=== PATIENT | male | born 1930 | race Hispanic/Latino ===

== ENCOUNTER 2018-10-14 15:42 | Inpatient (IN) | payer MEDICARE ==
[2018-10-14] MEDS ORDERED: SUBLIMAZE IV PRN (18:43)
[2018-10-14] MEDS ORDERED: ZOFRAN IV PRN ×2 (18:43→21:27)
--- NOTE | 2018-10-14 18:44 | Anesthesia Day of Surgery ---
Anesthesia Day of Surgery - Day of Surgery Patient Examined: Yes Patient H&P Reviewed: Yes Patient is NPO: Yes (NPO 10AM)
--- NOTE | 2018-10-14 18:48 | Anesthesia Consultation ---
Anesthesia Consult and Med Hx Date of service: 10/14/18 - Airway Anesthetic Teeth Evaluation: Dentures (Implants with metal posts) ROM Head & Neck: Adequate Mental/Hyoid Distance: Adequate Mallampati Class: Class II Intubation Access Assessment: Good - Pre-Operative Health Status ASA Pre-Surgery Classification: ASA3, Emergency Proposed Anesthetic Plan: General, MAC - Cardiovascular System Hx Coronary Artery Disease: Yes (Angioplasty 30years ago. Dismissed from document review specialist's care) - Central Nervous System Hx Neuromuscular Disorder: Yes (Neuropathy of foot. 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
[2018-10-14] MEDS ORDERED: LACTATED RINGERS 1,000 ML IV SCH (19:00)
[2018-10-14] MEDS ORDERED: DIPRIVAN 10 MG/ML IV ONE (20:35)
[2018-10-14] MEDS ORDERED: SUBLIMAZE ONE (20:35)
[2018-10-14] MEDS ORDERED: NACL 0.9% IR ONE (20:53)
[2018-10-14] MEDS ORDERED: D50W (25GM) Syringe IV PRN (21:27)
[2018-10-14] MEDS ORDERED: SODIUM CHLORIDE FLUSH SYRINGE 10 ML IV PRN (21:27)
[2018-10-14] MEDS ORDERED: ZANAFLEX PO PRN (21:45)
--- NOTE | 2018-10-14 22:01 | Operative Report ---
Operative Report Operative Report: Date of Procedure: 10/14/2018 Pre-operative Diagnosis: PVD with Left Lower Extremity Gangrene Post-operative Diagnosis: Same Procedure(s): 1. Debridement of Left Foot Necrotic Skin Muscle and Soft Tissue 2. Open Ray Amputation of Left First Toe Surgeon: Kunal Dow M.D. Swatch Folder: Alaina Anesthesia: MAC EBL: Minimal Counts: Correct Complications: None Condition: Stable Findings: The medial wound of the left foot involving the first metatarsal head. There was necrotic tissue on the plantar surface involving the medial wound. The tissue underlying the lateral wound was all healthy and did not involve any bone. All tissue was debrided to healthy tissue and had excellent bleeding base. Specimen: Skin muscle and soft tissue of the left foot was sent to microbiology for cultures. The first toe was sent to pathology. Indication: The patient is an 88-year-old male with a history of peripheral vascular disease where revascularization of the left foot for wound healing. The patient presented to my office today with a 3 week history of fevers and decreased mental status. He had worsening of the wound as well as a new wound on the lateral foot. Both wounds appeared to be secondary to pressure as his dressings have been held in place with Coban band. Given the mental status changes and the deterioration of his wounds it was felt that he needed urgent incision and drainage of the possible first time limitation. His and son were given the risk, benefits, and alternative procedures and consented to the procedure. Description of Procedure: The patient was brought to the operating room and laid in supine position. After he was adequately sedated his left foot was prepped and draped in normal sterile fashion. A 10 blade was used to sharply excise around the eschar on the medial aspect of his left foot. Upon removing the eschar the medial aspect of the first metatarsal was exposed and had obvious signs of osteomyelitis. There was also necrotic tissue exposed that extended along the plantar surface of the foot beneath the first metatarsal. This was sharply debrided with curved Lange's to healthy bleeding tissue. I then used a periosteal elevator to elevate the periosteum off of the first metatarsal and used an oscillating saw to divide the first metatarsal proximal to the wound. I used a 10 blade to continue the incision around the base of the first toe and then used the curved Mayos to further debride the remaining necrotic tissue. Of note there was excellent bleeding within the tissue bed giving some indication that there was adequate perfusion for healing. I used a rasp to ensure that the bone was smoothed. I then copiously irrigated the wound. Hemostasis within the wound was achieved with a combination of direct pressure and cautery. I then used a 10 blade to excise the eschar over the lateral wound and this was not involving the bone and had a very clean base. Hemostasis on that little was achieved with direct pressure. Once hemostasis was achieved the foot was dressed with Betadine soaked gauze in the medial wound and then dressed with fluffs, a Kerlix roll, and a four-inch Fran bandage. The patient tolerated the procedure well. All sponge, needle, and instrument counts were correct. The patient was taken to the recovery area in stable condition.
[2018-10-14] MEDS ORDERED: VANCOMYCIN PHARMACY TO DOSE IV SCH (23:00)
[2018-10-14] MEDS ORDERED: MAXIPIME/NS 2 GM/100 ML 2 GM/100 ML BAG IV SCH (23:00)
[2018-10-14] MEDS ORDERED: VANCOMYCIN 2,000 MG in NACL 0.9% 500 ML 500 ML IV ONE (23:15)
[2018-10-14] MEDS: NACL 0.9% 1000 ML 1,000 ML IV SCH (23:41)
[2018-10-14] MEDS: PRAVACHOL PO SCH (23:43)
[2018-10-14] MEDS: TYLENOL PO PRN (23:43)
[2018-10-14] MEDS: ZANAFLEX PO PRN (23:44)
[2018-10-14] MEDS: NAMENDA PO SCH (23:44)
[2018-10-14] MEDS: FLOMAX PO SCH (23:58)
[2018-10-14] MEDS: NEURONTIN PO SCH (23:59)
[2018-10-15] MEDS: SODIUM CHLORIDE FLUSH SYRINGE 10 ML IV SCH ×3 (00:30→21:52)
[2018-10-15] MEDS: HumaLOG SUB-Q SCH ×5 (00:30→21:51)
[2018-10-15 01:53] LABS: Calcium 8.5 mg/dL (8.4-10.2)
[2018-10-15 01:58] LABS: Basophils # (Auto) 0.2 K/mm3 (0.0-0.1); Eosinophils % (Auto) 0.4 % (0.0-4.3); Hematocrit 49.5 % (35.5-45.6); Hemoglobin 16.4 gm/dl (11.8-15.2); Lymphocytes # (Auto) 2.2 K/mm3 (1.2-5.4); Lymphocytes % (Auto) 24.3 % (13.4-35.0); Mean Corpuscular HGB Conc 33 % (32-34); Mean Corpuscular Volume 90 fl (84-94); Monocytes # (Auto) 0.5 K/mm3 (0.0-0.8); Platelet Count 167 K/mm3 (140-440); Red Blood Count 5.49 M/mm3 (3.65-5.03); Red Cell Distribution Width 13.4 % (13.2-15.2)
[2018-10-15] MEDS ORDERED: APRESOLINE IV PRN (04:43)
[2018-10-15] MEDS ORDERED: KIONEX PO ONE ×2 (04:44→14:23)
[2018-10-15] MEDS: SYNTHROID PO SCH (05:20)
--- NOTE | 2018-10-15 09:07 | Post Anesthesia Evaluation ---
- Post Anesthesia Evaluation Patient Participated: Yes Airway Patent: Yes Stable Respiratory Function: Yes Nausea/Vomiting: No Temp > 96.8F: Yes Pain Manageable: Yes Adequeate Hydration: Yes Anesthesia Complications: No Block Receding Appropriately: Not Applicable Patient on Ventilator: No
[2018-10-15] MEDS ORDERED: MAXIPIME/NS 2 GM/100 ML 2 GM/100 ML BAG IV SCH (10:00)
[2018-10-15] MEDS ORDERED: FLOMAX PO SCH (10:00)
[2018-10-15] MEDS: LOVENOX SUB-Q SCH (10:20)
[2018-10-15] MEDS: PROTONIX PO SCH (10:20)
[2018-10-15] MEDS: PROzac PO SCH (10:20)
[2018-10-15] MEDS: NAMENDA PO SCH ×2 (10:20→21:51)
[2018-10-15] MEDS: CLARITIN PO SCH (10:20)
[2018-10-15] MEDS: ZESTRIL PO SCH (10:21)
--- NOTE | 2018-10-15 10:26 | Consultation ---
History of Present Illness - Reason for Consult Consult date: 10/15/18 - History of Present Illness 88 yo M PMHx CAD, Dm2, neuropathy, PAD admitted to hospital directly from his surgeon's office. He had initially presented there yesterday with a 3 week history of AMS and fevers which were associated with a worsening of the wound on his foot. It was ascertained that the dressings on his foot were being held in place by a too tight bandage. He was admitted for urgent surgical management of the wounds yesterday. He was taken to the OR where the wounds were found to involve the firtst metatarsal head, and over the lateral aspect of the foot. The 1st ray was amputated and the other wounds were debrided and found to extend down to the muscle and fascia layer but did not involve the bone. Family reports he is much improved today, and is alert and oriented during my interview. Denies any pain. Febrile on admission to 100.7 with a normal white count. He is currently receiving vancomycin and cefepime. Wound cultures and bone specimens were obtained intra-operatively from the surgery and are pending. Imaging personally reviewed: No imaging obtained. Review of Systems: Bold if positive, otherwise negative General: fevers, chills, rigors HEENT: visual disturbance, diplopia, eye pain Respiratory: cough, sputum, hemoptysis, shortness of breath Cardiovascular: chest pain, syncope Gastrointestinal: nausea, vomiting, diarrhea, abdominal pain Genitourinary: dysuria, hematuria, flank pain Musculoskeletal: neck pain, back pain, joint pain, edema Neurologic: headaches, seizures Hematologic: easy bruising or bleeding Endocrine: night sweats, acute weight loss Skin: rash, jaundice, redness Psychiatric: suicidal, homicidal ideation Past History Past Medical History: CAD, diabetes, PVD Past Surgical History: Other (Toe amputation) Social history: denies: smoking, alcohol abuse Family history: CAD, diabetes Medications and Allergies Allergies Allergy/AdvReac Type Severity Reaction Status Date / Time No Known Allergies Allergy Unverified 10/14/18 21:13 Active Meds: Active Medications Acetaminophen (Tylenol) 650 mg PO Q4H PRN PRN Reason: Pain MILD(1-3)/Fever >100.5/[facility] Last Admin: 10/14/18 23:43 Dose: 650 mg Documented by: Dextrose (D50w (25gm) Syringe) 50 ml IV PRN PRN PRN Reason: Hypoglycemia Enoxaparin Sodium (Lovenox) 30 mg SUB-Q QDAY [facility] Last Admin: 10/15/18 10:20 Dose: 30 mg Documented by: Fentanyl (Sublimaze) 50 mcg IV Q5MIN PRN PRN Reason: Pain , Severe (7-10) Fluoxetine HCl (Prozac) 40 mg PO QDAY [facility] Last Admin: 10/15/18 10:20 Dose: 40 mg Documented by: Gabapentin (Neurontin) 600 mg PO QHS [facility] Last Admin: 10/14/18 23:59 Dose: 600 mg Documented by: Hydralazine HCl (Apresoline) 10 mg IV Q4H PRN PRN Reason: Blood Pressure Lactated Ringer's (Lactated Ringers) 1,000 mls @ 100 mls/hr IV DIRECT [facility] Sodium Chloride (Nacl 0.9% 1000 Ml) 1,000 mls @ 75 mls/hr IV DIRECT [facility] Last Admin: 10/14/18 23:41 Dose: 75 mls/hr Documented by: Cefepime HCl (Maxipime/Ns 2 Gm/100 Ml) 2 gm in 100 mls @ 200 mls/hr IV Q24HR [facility]; Protocol Last Admin: 10/15/18 10:20 Dose: 200 mls/hr Documented by: Vancomycin HCl 1,500 mg/ (Sodium Chloride) 530 mls @ 333.333 mls/hr IV Q24H [facility] Insulin Human Lispro (Humalog) 0 unit SUB-Q ACHS [facility]; Protocol Last Admin: 10/15/18 08:00 Dose: Not Given Documented by: Levothyroxine Sodium (Synthroid) 100 mcg PO DAILY@0600 [facility] Last Admin: 10/15/18 05:20 Dose: 100 mcg Documented by: Lisinopril (Zestril) 5 mg PO QDAY [facility] Last Admin: 10/15/18 10:21 Dose: Not Given Documented by: Loratadine (Claritin) 10 mg PO QDAY [facility] Last Admin: 10/15/18 10:20 Dose: 10 mg Documented by: Memantine (Namenda) 10 mg PO Q12HR [facility] Last Admin: 10/15/18 10:20 Dose: 10 mg Documented by: Ondansetron HCl (Zofran) 4 mg IV Q8H PRN PRN Reason: Nausea And Vomiting Oxycodone/Acetaminophen (Percocet 5/325) 2 tab PO Q6H PRN PRN Reason: Pain, Moderate (4-6) Pantoprazole Sodium (Protonix) 40 mg PO QDAY [facility] Last Admin: 10/15/18 10:20 Dose: 40 mg Documented by: Pravastatin Sodium (Pravachol) 80 mg PO QHS [facility] Last Admin: 10/14/18 23:43 Dose: 80 mg Documented by: Sodium Chloride (Sodium Chloride Flush Syringe 10 Ml) 10 ml IV BID [facility] Last Admin: 10/15/18 10:20 Dose: 10 ml Documented by: Sodium Chloride (Sodium Chloride Flush Syringe 10 Ml) 10 ml IV PRN PRN PRN Reason: LINE FLUSH Tamsulosin HCl (Flomax) 0.4 mg PO QHS [facility] Last Admin: 10/14/18 23:58 Dose: 0.4 mg Documented by: Tizanidine HCl (Zanaflex) 4 mg PO Q6H PRN PRN Reason: Muscle Spasm Last Admin: 10/14/18 23:44 Dose: 4 mg Documented by: Physical Examination - Physical Exam Narrative exam: Physical Exam: Constitutional: Alert, cooperative. No acute distress Head, Ears, Nose: Normocephalic, atraumatic. External ears, nose normal Eyes: Conjunctivae/corneas clear. No icterus. No ptosis. Neck: Supple, no meningeal signs Oral: dentition fair, no thrush Cardiovascular: S1, S2 normal. Respiratory: Good air entry, clear to auscultation bilaterally GI: Soft, non-tender; bowel sounds normal. No peritoneal signs. Musculoskeletal: No pedal edema, no cyanosis. L foot s/p 1st ray amputation. Foot dressed. Skin: No rash or abscess Hem/Lymphatic: No palpable cervical or supraclavicular nodes. No lymphangitis Psych: Mood ok. Affect normal Neurological: Awake, alert, oriented. No gross abnormality - Constitutional Vitals: Vital Signs Temp Pulse Resp BP Pulse Ox 97.3 F L 66 18 125/49 100 10/15/18 07:40 10/15/18 10:21 10/15/18 07:40 10/15/18 10:21 10/15/18 07:40 Temperature -Last 24 Hours Temperature 97.3 F Temperature 98.5 F Temperature 98.5 F Temperature 98.4 F Temperature 100.7 F Temperature 98.9 F Temperature 100.3 F Results - Labs CBC & Chem 7: 10/14/18 23:09 10/14/18 23:09 Labs: Abnormal lab results 10/14/18 10/14/18 10/14/18 Range/Units 16:35 21:53 23:09 RBC 5.49 H (3.65-5.03) M/mm3 Hgb 16.4 H (11.8-15.2) gm/dl Hct 49.5 H (35.5-45.6) % Baso # 0.2 H (0.0-0.1) K/mm3 Sodium (137-145) mmol/L Potassium (3.6-5.0) mmol/L Carbon Dioxide (22-30) mmol/L Creatinine (0.8-1.5) mg/dL POC Glucose 153 H 110 H (70-105) 10/14/18 Range/Units 23:09 RBC (3.65-5.03) M/mm3 Hgb (11.8-15.2) gm/dl Hct (35.5-45.6) % Baso # (0.0-0.1) K/mm3 Sodium 135 L (137-145) mmol/L Potassium 5.4 H (3.6-5.0) mmol/L Carbon Dioxide 21 L (22-30) mmol/L Creatinine 1.8 H (0.8-1.5) mg/dL POC Glucose (70-105) Assessment and Plan Cultures: 10/14 surgical Cx - pending A/P: 88 yo M PMHx CAD, Dm2, neuropathy, PAD admitted with osteomyelitis and infected diabetic foot wound. 1. 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 May not require assisted antibiotics if clean margins obtain on pathology. Pending path and cultures. Agree with continuing current antibiotics pendign these results. 2. Infected L diabetic foot wound - Antibiotics as above, pending cultures. Total duration will depend on if only soft tissue infection remains versus ongoing osteomyelitis. 3. CAD 4. DM2 5. PAD - s/p recent stent placement. Recs: - continue vancomycin dosed per pharmacy. Appreciate their assistance. Goal trough 15-20 - increased cefepime to 2g q12h. - follow up surgical cultures - duration pending culture and pathology results. Thank you for the consult, we will continue to follow. Kaz Manuel MD [facility] M: [phone] O: [phone] F: [phone]
--- NOTE | 2018-10-15 14:01 | Consultation ---
History of Present Illness - Reason for Consult Consult date: 10/15/18 Management of T2DM, and Osteomyelitis in a pt s/o p left toe amputatuion Requesting physician: ROSARIO DOHERTY - History of Present Illness 88 yo/M with a MHx CAD, DM2, neuropathy, PAD admitted to hospital directly from his surgeon's office for surgical evaluation and treatment of the left diabetic foot. Pt had shown signs of infected wound of the left foot and toxemia. He had initially presented there yesterday with a 3 week history of AMS and fevers which were associated with a worsening of the wound on his foot. He was taken to the OR 10/14/17 where the wounds were found to involve the first metatarsal head, and over the lateral aspect of the foot. Hospital medicine as consulted to assist with the management of his T2DM Past History Past Medical History: CAD, diabetes, PVD Past Surgical History: Other (Toe amputation) Social history: denies: smoking, alcohol abuse Family history: CAD, diabetes Medications and Allergies Allergies Allergy/AdvReac Type Severity Reaction Status Date / Time No Known Allergies Allergy Unverified 10/14/18 21:13 Active Meds: Active Medications Acetaminophen (Tylenol) 650 mg PO Q4H PRN PRN Reason: Pain MILD(1-3)/Fever >100.5/[facility] Last Admin: 10/14/18 23:43 Dose: 650 mg Documented by: Dextrose (D50w (25gm) Syringe) 50 ml IV PRN PRN PRN Reason: Hypoglycemia Enoxaparin Sodium (Lovenox) 30 mg SUB-Q QDAY [facility] Last Admin: 10/15/18 10:20 Dose: 30 mg Documented by: Fentanyl (Sublimaze) 50 mcg IV Q5MIN PRN PRN Reason: Pain , Severe (7-10) Fluoxetine HCl (Prozac) 40 mg PO QDAY [facility] Last Admin: 10/15/18 10:20 Dose: 40 mg Documented by: Gabapentin (Neurontin) 600 mg PO QHS [facility] Last Admin: 10/14/18 23:59 Dose: 600 mg Documented by: Hydralazine HCl (Apresoline) 10 mg IV Q4H PRN PRN Reason: Blood Pressure Lactated Ringer's (Lactated Ringers) 1,000 mls @ 100 mls/hr IV DIRECT [facility] Sodium Chloride (Nacl 0.9% 1000 Ml) 1,000 mls @ 75 mls/hr IV DIRECT [facility] Last Admin: 10/14/18 23:41 Dose: 75 mls/hr Documented by: Vancomycin HCl 1,500 mg/ (Sodium Chloride) 530 mls @ 333.333 mls/hr IV Q24H [facility] Cefepime HCl (Maxipime/Ns 2 Gm/100 Ml) 2 gm in 100 mls @ 200 mls/hr IV Q12HR [facility]; Protocol Insulin Human Lispro (Humalog) 0 unit SUB-Q ACHS [facility]; Protocol Last Admin: 10/15/18 12:24 Dose: Not Given Documented by: Levothyroxine Sodium (Synthroid) 100 mcg PO DAILY@0600 [facility] Last Admin: 10/15/18 05:20 Dose: 100 mcg Documented by: Lisinopril (Zestril) 5 mg PO QDAY [facility] Last Admin: 10/15/18 10:21 Dose: Not Given Documented by: Loratadine (Claritin) 10 mg PO QDAY [facility] Last Admin: 10/15/18 10:20 Dose: 10 mg Documented by: Memantine (Namenda) 10 mg PO Q12HR [facility] Last Admin: 10/15/18 10:20 Dose: 10 mg Documented by: Ondansetron HCl (Zofran) 4 mg IV Q8H PRN PRN Reason: Nausea And Vomiting Oxycodone/Acetaminophen (Percocet 5/325) 2 tab PO Q6H PRN PRN Reason: Pain, Moderate (4-6) Pantoprazole Sodium (Protonix) 40 mg PO QDAY [facility] Last Admin: 10/15/18 10:20 Dose: 40 mg Documented by: Pravastatin Sodium (Pravachol) 80 mg PO QHS [facility] Last Admin: 10/14/18 23:43 Dose: 80 mg Documented by: Sodium Chloride (Sodium Chloride Flush Syringe 10 Ml) 10 ml IV BID [facility] Last Admin: 10/15/18 10:20 Dose: 10 ml Documented by: Sodium Chloride (Sodium Chloride Flush Syringe 10 Ml) 10 ml IV PRN PRN PRN Reason: LINE FLUSH Tamsulosin HCl (Flomax) 0.4 mg PO QHS [facility] Last Admin: 10/14/18 23:58 Dose: 0.4 mg Documented by: Tizanidine HCl (Zanaflex) 4 mg PO Q6H PRN PRN Reason: Muscle Spasm Last Admin: 10/14/18 23:44 Dose: 4 mg Documented by: Exam - Constitutional Vitals: Temp Pulse Resp BP Pulse Ox 97.3 F L 66 18 125/49 100 10/15/18 07:40 10/15/18 10:21 10/15/18 10:00 10/15/18 10:21 10/15/18 10:00 Results - Labs CBC & Chem 7: 10/14/18 23:09 10/14/18 23:09 Labs: Abnormal lab results 10/14/18 10/14/18 10/14/18 Range/Units 16:35 21:53 23:09 RBC 5.49 H (3.65-5.03) M/mm3 Hgb 16.4 H (11.8-15.2) gm/dl Hct 49.5 H (35.5-45.6) % Baso # 0.2 H (0.0-0.1) K/mm3 Sodium (137-145) mmol/L Potassium (3.6-5.0) mmol/L Carbon Dioxide (22-30) mmol/L Creatinine (0.8-1.5) mg/dL POC Glucose 153 H 110 H (70-105) 10/14/18 10/15/18 Range/Units 23:09 12:12 RBC (3.65-5.03) M/mm3 Hgb (11.8-15.2) gm/dl Hct (35.5-45.6) % Baso # (0.0-0.1) K/mm3 Sodium 135 L (137-145) mmol/L Potassium 5.4 H (3.6-5.0) mmol/L Carbon Dioxide 21 L (22-30) mmol/L Creatinine 1.8 H (0.8-1.5) mg/dL POC Glucose 114 H (70-105) Assessment and Plan 88 yo M PMHx CAD, Dm2, neuropathy, PAD admitted to hospital directly from his surgeon's office. He had initially presented there yesterday with a 3 week history of AMS and fevers which were associated with a worsening of the wound on his foot. It was ascertained that the dressings on his foot were being held in place by a too tight bandage. He was admitted for urgent surgical management of the wounds yesterday. He was taken to the OR where the wounds were found to involve the firtst metatarsal head, and over the lateral aspect of the foot. The 1st ray was amputated and the other wounds were debrided and found to extend down to the muscle and fascia layer but did not involve the bone. Family reports he is much improved today, and is alert and oriented during my interview. Denies any pain. - Diabetic left ulcer left foot Local wound care . Foot elevation -DM SSI consistent CHO Deit - Hyperkalemia Repaet. Kayxalate if still elevated - ROSANNE IVF Serail BUN Cr DVT PPX with Lovenox and GI with pepeh
[2018-10-15] MEDS ORDERED: D50W (25GM) Syringe IV PRN (14:22)
[2018-10-15] MEDS: PERCOCET 5/325 PO PRN ×2 (14:30→21:49)
--- NOTE | 2018-10-15 17:25 | Progress Note ---
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 Patient's mental status improved and febrile nature improved after removal of infected toe. Wound care to see patient tomorrow for possible wound VAC placement. ID for antibiotics. Appreciate assistance. Medicine for diabetic control. Appreciate assistance. Subjective Date of service: 10/15/18 Interval history: Doing well. Since surgery, afebrile. No complaints. The foot is warm and well-perfused. Bandages not taken down today the other toes are visible. Objective - Constitutional Vitals: Vital Signs - 12hr 10/15/18 10/15/18 10/15/18 07:40 10:00 10:21 Temperature 97.3 F L Pulse Rate 66 54 L 66 Pulse Rate [ 66 From Monitor] Respiratory 18 18 Rate Blood Pressure 125/49 125/49 O2 Sat by Pulse 100 100 Oximetry 10/15/18 16:21 Temperature 98.3 F Pulse Rate 67 Pulse Rate [ From Monitor] Respiratory 18 Rate Blood Pressure 154/42 O2 Sat by Pulse 100 Oximetry General appearance: Present: no acute distress - EENT Eyes: EOM intact ENT: hearing intact Extremities: abnormal (see subjective) - Psychiatric Psychiatric: appropriate mood/affect, cooperative - Labs CBC & Chem 7: 10/14/18 23:09 10/14/18 23:09 Labs: Abnormal lab results 10/14/18 10/14/18 10/14/18 Range/Units 21:53 23:09 23:09 RBC 5.49 H (3.65-5.03) M/mm3 Hgb 16.4 H (11.8-15.2) gm/dl Hct 49.5 H (35.5-45.6) % Baso # 0.2 H (0.0-0.1) K/mm3 Sodium 135 L (137-145) mmol/L Potassium 5.4 H (3.6-5.0) mmol/L Carbon Dioxide 21 L (22-30) mmol/L Creatinine 1.8 H (0.8-1.5) mg/dL POC Glucose 110 H (70-105) Hemoglobin A1c (4-6) % 10/15/18 10/15/18 10/15/18 Range/Units 12:12 15:47 16:29 RBC (3.65-5.03) M/mm3 Hgb (11.8-15.2) gm/dl Hct (35.5-45.6) % Baso # (0.0-0.1) K/mm3 Sodium (137-145) mmol/L Potassium (3.6-5.0) mmol/L Carbon Dioxide (22-30) mmol/L Creatinine (0.8-1.5) mg/dL POC Glucose 114 H 210 H (70-105) Hemoglobin A1c 6.7 H (4-6) % Medications & Allergies - Medications Allergies/Adverse Reactions: Allergies No Known Allergies Allergy (Unverified 10/14/18 21:13) Active Medications: Generic Name Dose Route Start Last Admin Trade Name Freq PRN Reason Stop Dose Admin Acetaminophen 650 mg 10/14/18 21:27 10/14/18 23:43 Tylenol PO 650 mg Q4H PRN Administration Pain MILD(1-3)/Fever >100.5/[facility]MAR[facility] Dextrose 50 ml 10/14/18 21:27 D50w (25gm) Syringe IV PRN PRN Hypoglycemia Dextrose 50 ml 10/15/18 14:22 D50w (25gm) Syringe IV PRN PRN Hypoglycemia Enoxaparin Sodium 30 mg 10/15/18 10:00 10/15/18 10:20 Lovenox SUB-Q 30 mg QDAY [facility] Administration Fentanyl 50 mcg 10/14/18 18:43 Sublimaze IV Q5MIN PRN Pain , Severe (7-10) Fluoxetine HCl 40 mg 10/15/18 10:00 10/15/18 10:20 Prozac PO 40 mg QDAY [facility] Administration Gabapentin 600 mg 10/14/18 22:00 10/14/18 23:59 Neurontin PO 600 mg QHS [facility] Administration Hydralazine HCl 10 mg 10/15/18 04:43 Apresoline IV Q4H PRN Blood Pressure Lactated Ringer's 1,000 mls @ 100 mls/hr 10/14/18 19:00 Lactated Ringers IV DIRECT [facility] Sodium Chloride 1,000 mls @ 75 mls/hr 10/14/18 23:00 10/14/18 23:41 Nacl 0.9% 1000 Ml IV 75 mls/hr DIRECT [facility] Administration Vancomycin HCl 1,500 mg/ 530 mls @ 333.333 mls/hr 10/15/18 22:00 Sodium Chloride IV Q24H [facility] Cefepime HCl 2 gm in 100 mls @ 200 mls/hr 10/15/18 22:00 Maxipime/Ns 2 Gm/100 Ml IV Q12HR [facility] Protocol Sodium Chloride 1,000 mls @ 75 mls/hr 10/15/18 15:00 Nacl 0.9% 1000 Ml IV DIRECT [facility] Insulin Human Lispro 0 unit 10/14/18 22:00 10/15/18 12:24 Humalog SUB-Q Not Given ACHS [facility] Protocol Levothyroxine Sodium 100 mcg 10/15/18 06:00 10/15/18 05:20 Synthroid PO 100 mcg DAILY@0600 [facility] Administration Lisinopril 5 mg 10/15/18 10:00 10/15/18 10:21 Zestril PO Not Given QDAY [facility] Loratadine 10 mg 10/15/18 10:00 10/15/18 10:20 Claritin PO 10 mg QDAY [facility] Administration Memantine 10 mg 10/14/18 22:00 10/15/18 10:20 Namenda PO 10 mg Q12HR [facility] Administration Ondansetron HCl 4 mg 10/14/18 21:27 Zofran IV Q8H PRN Nausea And Vomiting Oxycodone/Acetaminophen 2 tab 10/14/18 21:48 Percocet 5/325 PO Q6H PRN Pain, Moderate (4-6) Pantoprazole Sodium 40 mg 10/15/18 10:00 10/15/18 10:20 Protonix PO 40 mg QDAY [facility] Administration Pravastatin Sodium 80 mg 10/14/18 22:00 10/14/18 23:43 Pravachol PO 80 mg QHS [facility] Administration Sodium Chloride 10 ml 10/14/18 22:00 10/15/18 10:20 Sodium Chloride Flush Syringe 10 Ml IV 10 ml BID [facility] Administration Sodium Chloride 10 ml 10/14/18 21:27 Sodium Chloride Flush Syringe 10 Ml IV PRN PRN LINE FLUSH Tamsulosin HCl 0.4 mg 10/14/18 22:00 10/14/18 23:58 Flomax PO 0.4 mg QHS [facility] Administration Tizanidine HCl 4 mg 10/14/18 22:46 10/14/18 23:44 Zanaflex PO 4 mg Q6H PRN Administration Muscle Spasm
[2018-10-15] MEDS ORDERED: NEURONTIN PO SCH (18:00)
[2018-10-15] MEDS: PRAVACHOL PO SCH (21:50)
[2018-10-15] MEDS: FLOMAX PO SCH (21:51)
[2018-10-15] MEDS: VANCOMYCIN 1,500 MG in NACL 0.9% 500 ML 500 ML IV SCH (21:51)
[2018-10-15] MEDS: NEURONTIN PO SCH (21:51)
[2018-10-15] MEDS: MAXIPIME/NS 2 GM/100 ML 2 GM/100 ML BAG IV SCH (21:52)
[2018-10-16 04:47] LABS: Basophils % (Auto) 0.5 % (0.0-1.8); Eosinophils # (Auto) 0.3 K/mm3 (0.0-0.4); Eosinophils % (Auto) 3.5 % (0.0-4.3); Hematocrit 29.7 % (35.5-45.6); Lymphocytes # (Auto) 1.8 K/mm3 (1.2-5.4); Lymphocytes % (Auto) 19.6 % (13.4-35.0); Mean Corpuscular HGB Conc 34 % (32-34); Mean Corpuscular Volume 90 fl (84-94); Monocytes # (Auto) 0.8 K/mm3 (0.0-0.8); Monocytes % (Auto) 8.7 % (0.0-7.3); Platelet Count 238 K/mm3 (140-440); Red Blood Count 3.29 M/mm3 (3.65-5.03); Red Cell Distribution Width 13.1 % (13.2-15.2)
[2018-10-16 05:11] LABS: Calcium 8.1 mg/dL (8.4-10.2)
[2018-10-16] MEDS: SYNTHROID PO SCH (06:23)
[2018-10-16] MEDS: NACL 0.9% 1000 ML 1,000 ML IV SCH ×2 (06:24→23:45)
[2018-10-16] MEDS: HumaLOG SUB-Q SCH ×4 (07:30→23:47)
--- NOTE | 2018-10-16 09:19 | Progress Note ---
Assessment and Plan Cultures: 10/14 surgical Cx - pending A/P: 88 yo M PMHx CAD, Dm2, neuropathy, PAD admitted with osteomyelitis and infected diabetic foot wound. 1. 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 May not require intermediate antibiotics if clean margins obtain on pathology. Pending path and cultures. Agree with continuing current antibiotics pending these results. 2. Infected L diabetic foot wound - Antibiotics as above, pending cultures. Tot al duration will depend on if only soft tissue infection remains versus ongoing osteomyelitis. 3. CAD 4. DM2 5. PAD - s/p recent stent placement. Recs: - continue vancomycin dosed per pharmacy. Appreciate their assistance. Goal trough 15-20 - continue cefepime to 2g q12h. - follow up surgical cultures and pathology - duration pending culture and pathology results. Dr. Briggs is manager of employee relations this weekend, . Please call for questions. [facility] M: [id number] O:[phone] Subjective Date of service: 10/16/18 Interval history: Patient seen and examined. Generalized weakness. No SOB or fevers. at bedside. Objective - Exam Narrative Exam: Constitutional: Awake. Alert. Generalized weakness Head, Ears, Nose: Normocephalic, atraumatic. External ears, nose normal Eyes: Conjunctivae/corneas clear. No icterus. No ptosis. Neck: Supple, no meningeal signs Oral: dentition fair, no thrush Cardiovascular: S1, S2 normal. Respiratory: Good air entry, clear to auscultation bilaterally GI: Soft, non-tender; bowel sounds normal. No peritoneal signs. Musculoskeletal: No pedal edema, no cyanosis. L foot s/p 1st ray amputation. Foot dressed. Skin: No rash or abscess Hem/Lymphatic: No palpable cervical or supraclavicular nodes. No lymphangitis Psych: Mood ok. Affect normal Neurological: Awake, alert, oriented. No gross abnormality - Constitutional Vitals: Vital Signs Temp Pulse Resp BP Pulse Ox 99.2 F 63 18 130/31 97 10/16/18 08:24 10/16/18 08:24 10/16/18 08:24 10/16/18 08:24 10/16/18 08:24 Temperature -Last 24 Hours Temperature 99.2 F Temperature 98.8 F Temperature 99.0 F Temperature 99.2 F Temperature 98.3 F - Labs CBC & Chem 7: 10/16/18 04:11 10/16/18 04:11 Labs: Abnormal lab results 10/15/18 10/15/18 10/15/18 Range/Units 12:12 15:47 16:29 RBC (3.65-5.03) M/mm3 Hgb (11.8-15.2) gm/dl Hct (35.5-45.6) % RDW (13.2-15.2) % [place] % (Auto) (0.0-7.3) % Sodium (137-145) mmol/L Glucose (75-100) mg/dL POC Glucose 114 H 210 H (70-105) Hemoglobin A1c 6.7 H (4-6) % Calcium (8.4-10.2) mg/dL 10/15/18 10/16/18 10/16/18 Range/Units 21:16 04:11 04:11 RBC 3.29 L (3.65-5.03) M/mm3 Hgb 10.0 L D (11.8-15.2) gm/dl Hct 29.7 L D (35.5-45.6) % RDW 13.1 L (13.2-15.2) % [place] % (Auto) 8.7 H (0.0-7.3) % Sodium 136 L (137-145) mmol/L Glucose 103 H (75-100) mg/dL POC Glucose 113 H (70-105) Hemoglobin A1c (4-6) % Calcium 8.1 L (8.4-10.2) mg/dL
--- NOTE | 2018-10-16 09:51 | Progress Note ---
Assessment and Plan 88 yo M PMHx CAD, Dm2, neuropathy, PAD admitted to hospital directly from his surgeon's office. He had initially presented there yesterday with a 3 week history of AMS and fevers which were associated with a worsening of the wound on his foot. It was ascertained that the dressings on his foot were being held in place by a too tight bandage. He was admitted for urgent surgical management of the wounds yesterday. He was taken to the OR where the wounds were found to involve the firtst metatarsal head, and over the lateral aspect of the foot. The 1st ray was amputated and the other wounds were debrided and found to extend down to the muscle and fascia layer but did not involve the bone. Family reports he is much improved today, and is alert and oriented during my interview. Denies any pain. - Diabetic left ulcer left foot Local wound care . Foot elevation -DM SSI consistent CHO Deit - Hyperkalemia Repaet. Kayxalate if still elevated - ROSANNE IVF Serail BUN Cr DVT PPX with Lovenox and GI with pepcid - Time spent: 25 minutes Subjective Date of service: 10/16/18 Principal diagnosis: diabetic nephropathy, status post debridements, T2DM, CAD, PAD. Interval history: Labile in bed in no acute distress. No fever. Pain on the left leg is better. Objective - Exam Narrative Exam: Constitutional: Well-nourished well-developed. When necessary. In no distress Head: Normocephalic atraumatic Eyes: Pupils are equal round and reactive to light Nose: No enlarged turbinates, no septal deviation. Mouth: Moist mucous membranes. Neck: Supple no thyromegaly. No bruit. No JVD Heart: Regular rate and rhythm, S1-S2 normal. No rubs murmurs or gallop Lungs: Clear to auscultation bilaterally. no rales or rhonchi Abdomen: Soft, nontender. Bowel sound are present. Extremities: No edema, no cyanosis, no clubbing. Neuro: Alert oriented Oriented x3. No focal sensory or motor deficit. Skin: No rashes or hyperpigmented spots Musculoskeletal system: Left DIABETIC ulcer status post debridement Hematological: No petechia or subcutanous hemorrhages. Immunological: No multiple septic spots on the skin Lymphatic: No generalized lymphadenopathy Psychiatry: Euthymic. Calm. - Constitutional Vitals: Vital Signs - 12hr 10/15/18 10/15/18 10/15/18 21:49 22:13 22:20 Temperature Pulse Rate Pulse Rate [ 61 Apical] Respiratory 18 18 Rate Respiratory 18 Rate [Left Foot ] Blood Pressure O2 Sat by Pulse 96 Oximetry 10/15/18 10/15/18 10/16/18 22:49 23:33 03:42 Temperature 99.0 F 98.8 F Pulse Rate 66 56 L Pulse Rate [ Apical] Respiratory 18 18 19 Rate Respiratory Rate [Left Foot ] Blood Pressure 146/43 120/27 O2 Sat by Pulse 93 98 Oximetry 10/16/18 10/16/18 04:26 08:24 Temperature 99.2 F Pulse Rate 63 Pulse Rate [ Apical] Respiratory 18 Rate Respiratory Rate [Left Foot ] Blood Pressure 100/30 130/31 O2 Sat by Pulse 97 Oximetry - Labs CBC & Chem 7: 10/16/18 04:11 10/16/18 04:11 Labs: Abnormal lab results 10/15/18 10/15/18 10/15/18 Range/Units 12:12 15:47 16:29 RBC (3.65-5.03) M/mm3 Hgb (11.8-15.2) gm/dl Hct (35.5-45.6) % RDW (13.2-15.2) % [place] % (Auto) (0.0-7.3) % Sodium (137-145) mmol/L Glucose (75-100) mg/dL POC Glucose 114 H 210 H (70-105) Hemoglobin A1c 6.7 H (4-6) % Calcium (8.4-10.2) mg/dL 10/15/18 10/16/18 10/16/18 Range/Units 21:16 04:11 04:11 RBC 3.29 L (3.65-5.03) M/mm3 Hgb 10.0 L D (11.8-15.2) gm/dl Hct 29.7 L D (35.5-45.6) % RDW 13.1 L (13.2-15.2) % [place] % (Auto) 8.7 H (0.0-7.3) % Sodium 136 L (137-145) mmol/L Glucose 103 H (75-100) mg/dL POC Glucose 113 H (70-105) Hemoglobin A1c (4-6) % Calcium 8.1 L (8.4-10.2) mg/dL
[2018-10-16] MEDS: PROzac PO SCH (10:00)
[2018-10-16] MEDS: SODIUM CHLORIDE FLUSH SYRINGE 10 ML IV SCH ×2 (10:00→21:08)
[2018-10-16] MEDS: ZESTRIL PO SCH (10:00)
[2018-10-16] MEDS: LOVENOX SUB-Q SCH ×2 (10:00→12:53)
[2018-10-16] MEDS: NAMENDA PO SCH ×2 (10:00→21:08)
--- NOTE | 2018-10-16 12:35 | Vascular Lab Report ---
Duplex arterial ultrasound of both lower extremities INDICATION: Peripheral arterial disease FINDINGS: On the right side there is tri or biphasic flow to the level of the mid SFA with only monop hasic flow distally and significantly dampened waveforms with low velocities. The YUN on the right is only 0.21 indicating extreme ischemia. There is either high-grade stenosis or focal occlusion in a p ortion of the distal SFA on the right. On the left side there is tri or biphasic flow again to the le noemy of the mid left SFA with monophasic flow distally. YUN could not be performed due to foot bandage from recent great toe amputation. The velocities and waveforms are not has diminished as on the righ t side however and there appears to be moderate ischemia of the left leg. Signer Name: Mukesh Frausto MD Signed: 10/16/2018 12:30 PM Workstation Name: [id number]
--- NOTE | 2018-10-16 12:40 | Progress Note ---
Assessment and Plan The patient will need to have wound VAC applied prior to discharge. Discussed with family. This will likely take until the first part of next week given the holiday weekend. Appreciate wound care assistance. Subjective Date of service: 10/16/18 Principal diagnosis: diabetic nephropathy, status post debridements, T2DM, CAD, PAD. Interval history: Patient continues to improve following debridement of his left foot. Objective - Constitutional Vitals: Vital Signs - 12hr 10/16/18 10/16/18 10/16/18 03:42 04:26 08:24 Temperature 98.8 F 99.2 F Pulse Rate 56 L 63 Respiratory 19 18 Rate Blood Pressure 120/27 100/30 130/31 O2 Sat by Pulse 98 97 Oximetry General appearance: Present: no acute distress - EENT Eyes: EOM intact ENT: hearing intact - Neck Neck: supple - Respiratory Respiratory effort: normal Extremities: abnormal (wounds along the medial and lateral aspect of his left foot) - Gastrointestinal General gastrointestinal: Present: deferred Rectal Exam: deferred - Genitourinary Male genitourinary: deferred - Psychiatric Psychiatric: appropriate mood/affect, cooperative - Labs CBC & Chem 7: 10/16/18 04:11 10/16/18 04:11 Labs: Abnormal lab results 10/15/18 10/15/18 10/15/18 Range/Units 15:47 16:29 21:16 RBC (3.65-5.03) M/mm3 Hgb (11.8-15.2) gm/dl Hct (35.5-45.6) % RDW (13.2-15.2) % [place] % (Auto) (0.0-7.3) % Sodium (137-145) mmol/L Glucose (75-100) mg/dL POC Glucose 210 H 113 H (70-105) Hemoglobin A1c 6.7 H (4-6) % Calcium (8.4-10.2) mg/dL 10/16/18 10/16/18 Range/Units 04:11 04:11 RBC 3.29 L (3.65-5.03) M/mm3 Hgb 10.0 L D (11.8-15.2) gm/dl Hct 29.7 L D (35.5-45.6) % RDW 13.1 L (13.2-15.2) % [place] % (Auto) 8.7 H (0.0-7.3) % Sodium 136 L (137-145) mmol/L Glucose 103 H (75-100) mg/dL POC Glucose (70-105) Hemoglobin A1c (4-6) % Calcium 8.1 L (8.4-10.2) mg/dL Medications & Allergies - Medications Allergies/Adverse Reactions: Allergies No Known Allergies Allergy (Unverified 10/14/18 21:13) Active Medications: Generic Name Dose Route Start Last Admin Trade Name Freq PRN Reason Stop Dose Admin Acetaminophen 650 mg 10/14/18 21:27 10/14/18 23:43 Tylenol PO 650 mg Q4H PRN Administration Pain MILD(1-3)/Fever >100.5/ALMARAZ Dextrose 50 ml 10/15/18 14:22 D50w (25gm) Syringe IV PRN PRN Hypoglycemia Enoxaparin Sodium 40 mg 10/16/18 10:00 Lovenox SUB-Q QDAY@1000 BALBINA Fentanyl 50 mcg 10/14/18 18:43 Sublimaze IV Q5MIN PRN Pain , Severe (7-10) Fluoxetine HCl 40 mg 10/15/18 10:00 10/15/18 10:20 Prozac PO 40 mg QDAY [facility] Administration Gabapentin 600 mg 10/14/18 22:00 10/15/18 21:51 Neurontin PO 600 mg QHS BALBINA Administration Hydralazine HCl 10 mg 10/15/18 04:43 Apresoline IV Q4H PRN Blood Pressure Vancomycin HCl 1,500 mg/ 530 mls @ 333.333 mls/hr 10/15/18 22:00 10/15/18 21:51 Sodium Chloride IV 333.333 mls/hr Q24H BALBINA Administration Cefepime HCl 2 gm in 100 mls @ 200 mls/hr 10/15/18 22:00 10/15/18 21:52 Maxipime/Ns 2 Gm/100 Ml IV 200 mls/hr Q12HR BALBINA Administration Protocol Sodium Chloride 1,000 mls @ 75 mls/hr 10/15/18 15:00 Nacl 0.9% 1000 Ml IV DIRECT BALBINA Insulin Human Lispro 0 unit 10/14/18 22:00 10/15/18 21:51 Humalog SUB-Q Not Given A[facility]S [facility] Protocol Levothyroxine Sodium 100 mcg 10/15/18 06:00 10/16/18 06:23 Synthroid PO 100 mcg DAILY@0600 BALBINA Administration Lisinopril 5 mg 10/15/18 10:00 10/15/18 10:21 Zestril PO Not Given QDAY [facility] Loratadine 10 mg 10/15/18 10:00 10/15/18 10:20 Claritin PO 10 mg QDAY [facility] Administration Memantine 10 mg 10/14/18 22:00 10/15/18 21:51 Namenda PO 10 mg Q12HR [facility] Administration Ondansetron HCl 4 mg 10/14/18 21:27 Zofran IV Q8H PRN Nausea And Vomiting Oxycodone/Acetaminophen 2 tab 10/14/18 21:48 10/15/18 21:49 Percocet 5/325 PO 2 tab Q6H PRN Administration Pain, Moderate (4-6) Pantoprazole Sodium 40 mg 10/15/18 10:00 10/15/18 10:20 Protonix PO 40 mg QDAY [facility] Administration Pravastatin Sodium 80 mg 10/14/18 22:00 10/15/18 21:50 Pravachol PO 80 mg QHS [facility] Administration Sodium Chloride 10 ml 10/14/18 22:00 10/15/18 21:52 Sodium Chloride Flush Syringe 10 Ml IV 10 ml BID [facility] Administration Sodium Chloride 10 ml 10/14/18 21:27 Sodium Chloride Flush Syringe 10 Ml IV PRN PRN LINE FLUSH Tamsulosin HCl 0.4 mg 10/14/18 22:00 10/15/18 21:51 Flomax PO 0.4 mg QHS [facility] Administration Tizanidine HCl 4 mg 10/14/18 22:46 10/14/18 23:44 Zanaflex PO 4 mg Q6H PRN Administration Muscle Spasm
[2018-10-16] MEDS: MAXIPIME/NS 2 GM/100 ML 2 GM/100 ML BAG IV SCH ×2 (12:52→21:08)
[2018-10-16] MEDS: CLARITIN PO SCH (12:53)
[2018-10-16] MEDS: PROTONIX PO SCH (12:53)
[2018-10-16] MEDS: PERCOCET 5/325 PO PRN (18:02)
[2018-10-16] MEDS: PRAVACHOL PO SCH (21:08)
[2018-10-16] MEDS: ZANAFLEX PO PRN (21:08)
[2018-10-16] MEDS: FLOMAX PO SCH (21:09)
[2018-10-16] MEDS: NEURONTIN PO SCH (21:09)
[2018-10-16] MEDS: VANCOMYCIN 1,500 MG in NACL 0.9% 500 ML 500 ML IV SCH (21:19)
[2018-10-16] MEDS: TYLENOL PO PRN (23:45)
[2018-10-17 03:53] LABS: Basophils # (Auto) 0.1 K/mm3 (0.0-0.1); Eosinophils # (Auto) 0.4 K/mm3 (0.0-0.4); Eosinophils % (Auto) 5.2 % (0.0-4.3); Hematocrit 29.1 % (35.5-45.6); Hemoglobin 9.8 gm/dl (11.8-15.2); Lymphocytes # (Auto) 1.8 K/mm3 (1.2-5.4); Mean Corpuscular HGB Conc 34 % (32-34); Mean Corpuscular Volume 90 fl (84-94); Monocytes # (Auto) 0.7 K/mm3 (0.0-0.8); Monocytes % (Auto) 9.3 % (0.0-7.3); Platelet Count 235 K/mm3 (140-440); Red Blood Count 3.23 M/mm3 (3.65-5.03)
[2018-10-17 04:17] LABS: Calcium 8.2 mg/dL (8.4-10.2)
[2018-10-17] MEDS: SYNTHROID PO SCH (07:35)
[2018-10-17] MEDS: HumaLOG SUB-Q SCH ×4 (07:49→22:17)
--- NOTE | 2018-10-17 10:38 | Progress Note ---
Assessment and Plan The patient wounds to the medial and lateral aspect of his left foot status post debridement. The wound on the medial aspect of his left foot at the site of the prior great toe is fairly deep and will require wound VAC for closure. The ryne gomez lives in [place] and previously was seen at wound care there however, they're not comfortable returning back. The patient will need daily dressing changes until a wound VAC and outpatient eye wound care can be arranged. He will need physical therapy evaluation and treatment and to get out of bed with nursing assistance and sit in the chair. Subjective Date of service: 10/17/18 Principal diagnosis: diabetic nephropathy, status post debridements, T2DM, CAD, PAD. Interval history: Patient resting comfortably in bed. Bandages changed. No significant drainage. Patient underwent arterial ultrasound which demonstrates atherosclerotic disease and in-line flow to the left foot. The patient's right foot which has no wounds does have decreased arterial flow and will need to be addressed in the future. Objective - Constitutional Vitals: Vital Signs - 12hr 10/16/18 10/16/18 10/17/18 23:18 23:45 04:10 Temperature 99.4 F 98.0 F Pulse Rate 61 46 L Respiratory 18 20 18 Rate Blood Pressure 153/39 126/34 O2 Sat by Pulse 98 96 Oximetry General appearance: Present: no acute distress - EENT Eyes: EOM intact ENT: hearing intact - Neck Neck: supple, normal ROM - Respiratory Respiratory effort: normal - Breasts Breasts: deferred Extremities: abnormal - Gastrointestinal General gastrointestinal: Present: deferred Rectal Exam: deferred - Genitourinary Male genitourinary: deferred - Psychiatric Psychiatric: cooperative - Labs CBC & Chem 7: 10/17/18 03:38 10/17/18 03:38 Labs: Abnormal lab results 10/16/18 10/16/18 10/17/18 Range/Units 12:43 23:24 03:38 RBC 3.23 L (3.65-5.03) M/mm3 Hgb 9.8 L (11.8-15.2) gm/dl Hct 29.1 L (35.5-45.6) % RDW 13.0 L (13.2-15.2) % [place] % (Auto) 9.3 H (0.0-7.3) % [place] % (Auto) 5.2 H (0.0-4.3) % Glucose (75-100) mg/dL POC Glucose 155 H 199 H (70-105) Calcium (8.4-10.2) mg/dL 10/17/18 Range/Units 03:38 RBC (3.65-5.03) M/mm3 Hgb (11.8-15.2) gm/dl Hct (35.5-45.6) % RDW (13.2-15.2) % [place] % (Auto) (0.0-7.3) % Eos % (Auto) (0.0-4.3) % Glucose 119 H (75-100) mg/dL POC Glucose (70-105) Calcium 8.2 L (8.4-10.2) mg/dL Medications & Allergies - Medications Allergies/Adverse Reactions: Allergies No Known Allergies Allergy (Unverified 10/14/18 21:13) Active Medications: Generic Name Dose Route Start Last Admin Trade Name Freq PRN Reason Stop Dose Admin Acetaminophen 650 mg 10/14/18 21:27 10/16/18 23:45 Tylenol PO 650 mg Q4H PRN Administration Pain MILD(1-3)/Fever >100.5/ALMARAZ Dextrose 50 ml 10/15/18 14:22 D50w (25gm) Syringe IV PRN PRN Hypoglycemia Enoxaparin Sodium 40 mg 10/16/18 10:00 10/16/18 10:00 Lovenox SUB-Q Not Given QDAY@1000 [facility] Fentanyl 50 mcg 10/14/18 18:43 Sublimaze IV Q5MIN PRN Pain , Severe (7-10) Fluoxetine HCl 40 mg 10/15/18 10:00 10/16/18 10:00 Prozac PO Not Given QDAY [facility] Gabapentin 600 mg 10/14/18 22:00 10/16/18 21:09 Neurontin PO 600 mg QHS [facility] Administration Hydralazine HCl 10 mg 10/15/18 04:43 Apresoline IV Q4H PRN Blood Pressure Vancomycin HCl 1,500 mg/ 530 mls @ 333.333 mls/hr 10/15/18 22:00 10/16/18 21:19 Sodium Chloride IV 333.333 mls/hr Q24H [facility] Administration Cefepime HCl 2 gm in 100 mls @ 200 mls/hr 10/15/18 22:00 10/16/18 21:08 Maxipime/Ns 2 Gm/100 Ml IV 200 mls/hr Q12HR [facility] Administration Protocol Sodium Chloride 1,000 mls @ 75 mls/hr 10/15/18 15:00 10/16/18 23:45 Nacl 0.9% 1000 Ml IV 75 mls/hr DIRECT [facility] Administration Insulin Human Lispro 0 unit 10/14/18 22:00 10/17/18 07:49 Humalog SUB-Q Not Given ACHS [facility] Protocol Levothyroxine Sodium 100 mcg 10/15/18 06:00 10/17/18 07:35 Synthroid PO Not Given DAILY@0600 [facility] Lisinopril 5 mg 10/15/18 10:00 10/16/18 10:00 Zestril PO Not Given QDAY [facility] Loratadine 10 mg 10/15/18 10:00 10/16/18 12:53 Claritin PO 10 mg QDAY [facility] Administration Memantine 10 mg 10/14/18 22:00 10/16/18 21:08 Namenda PO 10 mg Q12HR [facility] Administration Ondansetron HCl 4 mg 10/14/18 21:27 Zofran IV Q8H PRN Nausea And Vomiting Oxycodone/Acetaminophen 2 tab 10/14/18 21:48 10/16/18 18:02 Percocet 5/325 PO 2 tab Q6H PRN Administration Pain, Moderate (4-6) Pantoprazole Sodium 40 mg 10/15/18 10:00 10/16/18 12:53 Protonix PO 40 mg QDAY [facility] Administration Pravastatin Sodium 80 mg 10/14/18 22:00 10/16/18 21:08 Pravachol PO 80 mg QHS [facility] Administration Sodium Chloride 10 ml 10/14/18 22:00 10/16/18 21:08 Sodium Chloride Flush Syringe 10 Ml IV 10 ml BID [facility] Administration Sodium Chloride 10 ml 10/14/18 21:27 Sodium Chloride Flush Syringe 10 Ml IV PRN PRN LINE FLUSH Tamsulosin HCl 0.4 mg 10/14/18 22:00 10/16/18 21:09 Flomax PO 0.4 mg QHS [facility] Administration Tizanidine HCl 4 mg 10/14/18 22:46 10/16/18 21:08 Zanaflex PO 4 mg Q6H PRN Administration Muscle Spasm
[2018-10-17] MEDS: MAXIPIME/NS 2 GM/100 ML 2 GM/100 ML BAG IV SCH ×2 (10:41→22:20)
[2018-10-17] MEDS: PROTONIX PO SCH (10:42)
[2018-10-17] MEDS: PROzac PO SCH (10:42)
[2018-10-17] MEDS: NAMENDA PO SCH ×2 (10:42→22:18)
[2018-10-17] MEDS: CLARITIN PO SCH (10:42)
[2018-10-17] MEDS: SODIUM CHLORIDE FLUSH SYRINGE 10 ML IV SCH ×2 (10:43→22:19)
[2018-10-17] MEDS: LOVENOX SUB-Q SCH (10:43)
[2018-10-17] MEDS: ZESTRIL PO SCH (10:45)
--- NOTE | 2018-10-17 10:52 | Progress Note ---
Assessment and Plan Cultures: 10/14 surgical Cx - Citrobacter koseri sens to FQ, cefepime, ceftriaxone A/P: 88 yo M PMHx CAD, Dm2, neuropathy, PAD admitted with osteomyelitis and infected diabetic foot wound. 1. 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 Infected L diabetic foot wound 3. CAD 4. DM2 5. PAD - s/p recent stent placement. Recs: - stop vancomycin - no evidence of MRSA - continue cefepime to 2g q12h. - follow up surgical cultures and pathology - may take 5-7 days because the bone has to be decalcified. If patient is ready to be discharged before biopsy margin is back, one alternative would be to give him PO levaquin for 7-10 days and f/u in the ID office in 1 week, if margin is positive for osteomyelitis will arrange IV abx in the office. Discussed with Dr Sofya Briggs MD [facility] ([facility]) Office [phone] Subjective Date of service: 10/17/18 Principal diagnosis: diabetic nephropathy, status post debridements, T2DM, CAD, PAD. Interval history: patient feels better, no fever, no complaints, at bedside. Objective - Exam Narrative Exam: General appearance: Alert in NAD Eyes: anicteric sclerae, moist conjunctivae; no lid-lag; PERRLA HENT: Atraumatic; oropharynx clear with moist mucous membranes and no mucosal ulcerations/no oral thrush; normal hard and soft palate. Lungs: CTA, with normal respiratory effort and no intercostal retractions CV: RRR no murmur Abdomen: Soft, non-tender; no masses or hepatosplenomegaly Extremities: +left foot with surgical wound Skin: No rash Psych: Appropriate affect, alert and oriented to person, place and time. Neuro: alert and oriented x 3. Moving all extermities - Constitutional Vitals: Vital Signs Temp Pulse Resp BP Pulse Ox 98.3 F 60 18 136/46 97 10/17/18 08:32 10/17/18 10:45 10/17/18 08:32 10/17/18 10:45 10/17/18 08:32 Temperature -Last 24 Hours Temperature 98.3 F Temperature 98.0 F Temperature 99.4 F Temperature 99.8 F Temperature 98.0 F - Labs CBC & Chem 7: 10/17/18 03:38 10/17/18 03:38 Labs: Abnormal lab results 10/16/18 10/16/18 10/17/18 Range/Units 12:43 23:24 03:38 RBC 3.23 L (3.65-5.03) M/mm3 Hgb 9.8 L (11.8-15.2) gm/dl Hct 29.1 L (35.5-45.6) % RDW 13.0 L (13.2-15.2) % [place] % (Auto) 9.3 H (0.0-7.3) % Eos % (Auto) 5.2 H (0.0-4.3) % Glucose (75-100) mg/dL POC Glucose 155 H 199 H (70-105) Calcium (8.4-10.2) mg/dL 10/17/18 Range/Units 03:38 RBC (3.65-5.03) M/mm3 Hgb (11.8-15.2) gm/dl Hct (35.5-45.6) % RDW (13.2-15.2) % [place] % (Auto) (0.0-7.3) % Eos % (Auto) (0.0-4.3) % Glucose 119 H (75-100) mg/dL POC Glucose (70-105) Calcium 8.2 L (8.4-10.2) mg/dL
--- NOTE | 2018-10-17 17:31 | Progress Note ---
Assessment and Plan 88 yo M PMHx CAD, Dm2, neuropathy, PAD admitted to hospital directly from his surgeon's office. He had initially presented there yesterday with a 3 week history of AMS and fevers which were associated with a worsening of the wound on his foot. It was ascertained that the dressings on his foot were being held in place by a too tight bandage. He was admitted for urgent surgical management of the wounds yesterday. He was taken to the OR where the wounds were found to involve the firtst metatarsal head, and over the lateral aspect of the foot. The 1st ray was amputated and the other wounds were debrided and found to extend down to the muscle and fascia layer but did not involve the bone. Family reports he is much improved today, and is alert and oriented during my interview. Denies any pain. - Diabetic left foot ulcer s/p debridement Local wound care . Foot elevation -DM SSI consistent CHO Deit A1c - Hyperkalemia - corrected - ROSANNE - improved IVF Serail BUN Cr DVT PPX with Lovenox and GI with pepcid - Time spent: 25 minutes Subjective Date of service: 10/17/18 Principal diagnosis: diabetic nephropathy, status post debridements, T2DM, CAD, PAD. Interval history: Labile in bed in no acute distress. No fever. Pain on the left leg is better. Objective - Exam Narrative Exam: Constitutional: Well-nourished well-developed. When necessary. In no distress Head: Normocephalic atraumatic Eyes: Pupils are equal round and reactive to light Nose: No enlarged turbinates, no septal deviation. Mouth: Moist mucous membranes. Neck: Supple no thyromegaly. No bruit. No JVD Heart: Regular rate and rhythm, S1-S2 normal. No rubs murmurs or gallop Lungs: Clear to auscultation bilaterally. no rales or rhonchi Abdomen: Soft, nontender. Bowel sound are present. Extremities: Left big toe palpitation No edema, no cyanosis, no clubbing. Neuro: Alert oriented Oriented x3. No focal sensory or motor deficit. Skin: No rashes or hyperpigmented spots Musculoskeletal system: Left DIABETIC ulcer status post debridement Hematological: No petechia or subcutanous hemorrhages. Immunological: No multiple septic spots on the skin Lymphatic: No generalized lymphadenopathy Psychiatry: Euthymic. Calm. - Constitutional Vitals: Vital Signs - 12hr 10/17/18 10/17/18 10/17/18 08:32 10:00 10:45 Temperature 98.3 F Pulse Rate 58 L 58 L 60 Respiratory 18 20 Rate Respiratory 20 Rate [Left Foot ] Blood Pressure 137/46 136/46 Blood Pressure [Left] O2 Sat by Pulse 97 99 Oximetry 10/17/18 10/17/18 11:35 17:08 Temperature 98.7 F 98.1 F Pulse Rate 57 L 60 Respiratory 18 18 Rate Respiratory Rate [Left Foot ] Blood Pressure 154/42 Blood Pressure 142/52 [Left] O2 Sat by Pulse 98 Oximetry - Labs CBC & Chem 7: 10/17/18 03:38 10/17/18 03:38 Labs: Abnormal lab results 10/16/18 10/17/18 10/17/18 Range/Units 23:24 03:38 03:38 RBC 3.23 L (3.65-5.03) M/mm3 Hgb 9.8 L (11.8-15.2) gm/dl Hct 29.1 L (35.5-45.6) % RDW 13.0 L (13.2-15.2) % [place] % (Auto) 9.3 H (0.0-7.3) % Eos % (Auto) 5.2 H (0.0-4.3) % Glucose 119 H (75-100) mg/dL POC Glucose 199 H (70-105) Calcium 8.2 L (8.4-10.2) mg/dL 10/17/18 Range/Units 11:40 RBC (3.65-5.03) M/mm3 Hgb (11.8-15.2) gm/dl Hct (35.5-45.6) % RDW (13.2-15.2) % [place] % (Auto) (0.0-7.3) % Eos % (Auto) (0.0-4.3) % Glucose (75-100) mg/dL POC Glucose 178 H (70-105) Calcium (8.4-10.2) mg/dL
[2018-10-17] MEDS: NACL 0.9% 1000 ML 1,000 ML IV SCH (20:09)
[2018-10-17] MEDS: ZANAFLEX PO PRN (22:17)
[2018-10-17] MEDS: FLOMAX PO SCH (22:18)
[2018-10-17] MEDS: NEURONTIN PO SCH (22:18)
[2018-10-17] MEDS: PRAVACHOL PO SCH (22:18)
[2018-10-18 07:53] LABS: Basophils % (Auto) 0.5 % (0.0-1.8); Eosinophils # (Auto) 0.4 K/mm3 (0.0-0.4); Eosinophils % (Auto) 4.6 % (0.0-4.3); Hematocrit 29.9 % (35.5-45.6); Hemoglobin 10.1 gm/dl (11.8-15.2); Lymphocytes # (Auto) 1.8 K/mm3 (1.2-5.4); Lymphocytes % (Auto) 23.6 % (13.4-35.0); Mean Corpuscular HGB Conc 34 % (32-34); Mean Corpuscular Volume 90 fl (84-94); Monocytes # (Auto) 0.6 K/mm3 (0.0-0.8); Monocytes % (Auto) 8.1 % (0.0-7.3); Platelet Count 235 K/mm3 (140-440); Red Blood Count 3.33 M/mm3 (3.65-5.03); Red Cell Distribution Width 12.8 % (13.2-15.2)
[2018-10-18] MEDS: HumaLOG SUB-Q SCH ×4 (08:00→21:33)
[2018-10-18] MEDS: SYNTHROID PO SCH (08:00)
--- NOTE | 2018-10-18 08:05 | Progress Note ---
Assessment and Plan Assessment and plan: per hx "88 yo M PMHx CAD, Dm2, neuropathy, PAD admitted to hospital directly from his surgeon's office. He had initially presented there yesterday with a 3 week history of AMS and fevers which were associated with a worsening of the wound on his foot. It was ascertained that the dressings on his foot were being held in place by a too tight bandage. He was admitted for urgent surgical management of the wounds yesterday. He was taken to the OR where the wounds were found to involve the firtst metatarsal head, and over the lateral aspect of the foot. The 1st ray was amputated and the other wounds were debrided and found to extend down to the muscle and fascia layer but did not involve the bone. Family reports he is much improved today, and is alert and oriented during my interview. Denies any pain. " - Diabetic left foot ulcer s/p debridement Local wound care . Foot elevation Cultures from wound showing Citrobacter ID consulted -DM SSI consistent CHO DIET Mildly elevated BG A1c-6.7 - Hyperkalemia - corrected - ROSANNE - improved IVF Monitor BUN Cr DVT PPX with Lovenox and GI with pepcid History Interval history: Patient seen and examined, no noted distress at this time. Family at bedside, all questions answered Hospitalist Physical - Physical exam Narrative exam: Constitutional: Well-nourished well-developed. When necessary. In no distress Head: Normocephalic atraumatic Eyes: Pupils are equal round and reactive to light Nose: No enlarged turbinates, no septal deviation. Mouth: Moist mucous membranes. Neck: Supple no thyromegaly. No bruit. No JVD Heart: Regular rate and rhythm, S1-S2 normal. No rubs murmurs or gallop Lungs: Clear to auscultation bilaterally. no rales or rhonchi Abdomen: Soft, nontender. Bowel sound are present. Extremities: Left big toe palpitation No edema, no cyanosis, no clubbing. Neuro: Alert oriented Oriented x3. No focal sensory or motor deficit. Skin: No rashes or hyperpigmented spots Musculoskeletal system: Left DIABETIC ulcer status post debridement, no overt drainage noted Hematological: No petechia or subcutanous hemorrhages. Immunological: No multiple septic spots on the skin Lymphatic: No generalized lymphadenopathy Psychiatry: Euthymic. Calm. - Constitutional Vitals: Temp Pulse Resp BP Pulse Ox 99.0 F 50 L 18 136/35 100 10/18/18 03:49 10/18/18 04:00 10/18/18 03:49 10/18/18 03:49 10/18/18 03:49 General appearance: Present: no acute distress Results - Labs CBC & Chem 7: 10/18/18 07:13 10/18/18 07:13 Labs: Laboratory Last Values WBC 7.6 K/mm3 (4.5-11.0) 10/18/18 07:13 RBC 3.33 M/mm3 (3.65-5.03) L 10/18/18 07:13 Hgb 10.1 gm/dl (11.8-15.2) L 10/18/18 07:13 Hct 29.9 % (35.5-45.6) L 10/18/18 07:13 MCV 90 fl (84-94) 10/18/18 07:13 MCH 30 pg (28-32) 10/18/18 07:13 MCHC 34 % (32-34) 10/18/18 07:13 RDW 12.8 % (13.2-15.2) L 10/18/18 07:13 Plt Count 235 K/mm3 (140-440) 10/18/18 07:13 Lymph % (Auto) 23.6 % (13.4-35.0) 10/18/18 07:13 [place] % (Auto) 8.1 % (0.0-7.3) H 10/18/18 07:13 Eos % (Auto) 4.6 % (0.0-4.3) H 10/18/18 07:13 Baso % (Auto) 0.5 % (0.0-1.8) 10/18/18 07:13 Lymph # 1.8 K/mm3 (1.2-5.4) 10/18/18 07:13 [place] # 0.6 K/mm3 (0.0-0.8) 10/18/18 07:13 Eos # 0.4 K/mm3 (0.0-0.4) 10/18/18 07:13 Baso # 0.0 K/mm3 (0.0-0.1) 10/18/18 07:13 Seg Neutrophils % 63.2 % (40.0-70.0) 10/18/18 07:13 Seg Neutrophils # 4.8 K/mm3 (1.8-7.7) 10/18/18 07:13 Sodium 139 mmol/L (137-145) 10/17/18 03:38 Potassium 4.3 mmol/L (3.6-5.0) 10/17/18 03:38 Chloride 103.5 mmol/L (98-107) 10/17/18 03:38 Carbon Dioxide 25 mmol/L (22-30) 10/17/18 03:38 15 mmol/L 10/17/18 03:38 BUN 14 mg/dL (9-20) 10/17/18 03:38 1.2 mg/dL (0.8-1.5) 10/17/18 03:38 Estimated GFR 57 ml/min 10/17/18 03:38 12 % 10/17/18 03:38 Glucose 119 mg/dL (75-100) H 10/17/18 03:38 POC Glucose 236 (70-105) H 10/17/18 20:58 6.7 % (4-6) H 10/15/18 15:47 Calcium 8.2 mg/dL (8.4-10.2) L 10/17/18 03:38 Active Medications - Current Medications Current Medications: Generic Name Dose Route Start Last Admin Trade Name Freq PRN Reason Stop Dose Admin Acetaminophen 650 mg 10/14/18 21:27 10/16/18 23:45 Tylenol PO 650 mg Q4H PRN Administration Pain MILD(1-3)/Fever >100.5/ALMARAZ Dextrose 50 ml 10/15/18 14:22 D50w (25gm) Syringe IV PRN PRN Hypoglycemia Enoxaparin Sodium 40 mg 10/16/18 10:00 10/17/18 10:43 Lovenox SUB-Q 40 mg QDAY@1000 BALBINA Administration Fentanyl 50 mcg 10/14/18 18:43 Sublimaze IV Q5MIN PRN Pain , Severe (7-10) Fluoxetine HCl 40 mg 10/15/18 10:00 10/17/18 10:42 Prozac PO 40 mg QDAY BALBINA Administration Gabapentin 600 mg 10/14/18 22:00 10/17/18 22:18 Neurontin PO 600 mg QHS BALBINA Administration Hydralazine HCl 10 mg 10/15/18 04:43 10/17/18 22:19 Apresoline IV 10 mg Q4H PRN Administration Blood Pressure Cefepime HCl 2 gm in 100 mls @ 200 mls/hr 10/15/18 22:00 10/17/18 22:20 Maxipime/Ns 2 Gm/100 Ml IV 200 mls/hr Q12HR BALBINA Administration Protocol Sodium Chloride 1,000 mls @ 75 mls/hr 10/15/18 15:00 10/17/18 20:09 Nacl 0.9% 1000 Ml IV 75 mls/hr DIRECT BALBINA Administration Insulin Human Lispro 0 unit 10/14/18 22:00 10/17/18 22:17 Humalog SUB-Q 3 unit ACHS BALBINA Administration Protocol Levothyroxine Sodium 100 mcg 10/15/18 06:00 10/17/18 07:35 Synthroid PO Not Given DAILY@0600 BALBINA Lisinopril 5 mg 10/15/18 10:00 10/17/18 10:45 Zestril PO Not Given QDAY BALBINA Loratadine 10 mg 10/15/18 10:00 10/17/18 10:42 Claritin PO 10 mg QDAY BALBINA Administration Memantine 10 mg 10/14/18 22:00 10/17/18 22:18 Namenda PO 10 mg Q12HR BALBINA Administration Ondansetron HCl 4 mg 10/14/18 21:27 Zofran IV Q8H PRN Nausea And Vomiting Oxycodone/Acetaminophen 2 tab 10/14/18 21:48 10/16/18 18:02 Percocet 5/325 PO 2 tab Q6H PRN Administration Pain, Moderate (4-6) Pantoprazole Sodium 40 mg 10/15/18 10:00 10/17/18 10:42 Protonix PO 40 mg QDAY BALBINA Administration Pravastatin Sodium 80 mg 10/14/18 22:00 10/17/18 22:18 Pravachol PO 80 mg QHS BALBINA Administration Sodium Chloride 10 ml 10/14/18 22:00 10/17/18 22:19 Sodium Chloride Flush Syringe 10 Ml IV 10 ml BID BALBINA Administration Sodium Chloride 10 ml 10/14/18 21:27 Sodium Chloride Flush Syringe 10 Ml IV PRN PRN LINE FLUSH Tamsulosin HCl 0.4 mg 10/14/18 22:00 10/17/18 22:18 Flomax PO 0.4 mg QHS BALBINA Administration Tizanidine HCl 4 mg 10/14/18 22:46 10/17/18 22:17 Zanaflex PO 4 mg Q6H PRN Administration Muscle Spasm
[2018-10-18 08:14] LABS: BUN/Creatinine Ratio 12; Blood Urea Nitrogen 13 mg/dL (9-20); Calcium 8.2 mg/dL (8.4-10.2); Hemolysis Index 1
[2018-10-18] MEDS: CLARITIN PO SCH (09:30)
[2018-10-18] MEDS: NAMENDA PO SCH ×2 (09:30→21:33)
[2018-10-18] MEDS: PROzac PO SCH (09:30)
[2018-10-18] MEDS: PROTONIX PO SCH (09:31)
[2018-10-18] MEDS: SODIUM CHLORIDE FLUSH SYRINGE 10 ML IV SCH ×2 (09:31→21:34)
[2018-10-18] MEDS: LOVENOX SUB-Q SCH (09:32)
[2018-10-18] MEDS: ZESTRIL PO SCH (09:32)
[2018-10-18] MEDS: MAXIPIME/NS 2 GM/100 ML 2 GM/100 ML BAG IV SCH (09:33)
[2018-10-18] MEDS: NACL 0.9% 1000 ML 1,000 ML IV SCH (11:04)
--- NOTE | 2018-10-18 11:26 | Progress Note ---
Assessment and Plan Incentive spirometry ordered. The patient will need to be out of bed 3 times a day with meals and ad mt. He needs to ambulate with nursing assistance as well. The patient is awaiting placement of a wound VAC and discharge with outpatient wound care set up. Subjective Date of service: 10/18/18 Principal diagnosis: diabetic nephropathy, status post debridements, T2DM, CAD, PAD. Interval history: Patient awaiting wound VAC placement and care wound care placement. Patient has not yet been out of bed during this hospitalization. Objective - Constitutional Vitals: Vital Signs - 12hr 10/17/18 10/18/18 10/18/18 23:29 03:49 04:00 Temperature 100.0 F H 99.0 F Pulse Rate 61 55 L 50 L Respiratory 20 18 Rate Blood Pressure 135/37 136/35 O2 Sat by Pulse 98 100 Oximetry 10/18/18 09:32 Temperature Pulse Rate 62 Respiratory Rate Blood Pressure 144/57 O2 Sat by Pulse Oximetry General appearance: Present: no acute distress - EENT Eyes: PERRL, EOM intact ENT: hearing intact - Neck Neck: supple, normal ROM - Respiratory Respiratory effort: normal - Breasts Breasts: deferred Extremities: abnormal - Gastrointestinal General gastrointestinal: Present: deferred Rectal Exam: deferred - Genitourinary Male genitourinary: deferred - Integumentary Integumentary: clear - Psychiatric Psychiatric: cooperative - Labs CBC & Chem 7: 10/18/18 07:13 10/18/18 07:13 Labs: Abnormal lab results 10/17/18 10/17/18 10/17/18 Range/Units 11:40 17:15 20:58 RBC (3.65-5.03) M/mm3 Hgb (11.8-15.2) gm/dl Hct (35.5-45.6) % RDW (13.2-15.2) % [place] % (Auto) (0.0-7.3) % Eos % (Auto) (0.0-4.3) % Glucose (75-100) mg/dL POC Glucose 178 H 256 H 236 H (70-105) Calcium (8.4-10.2) mg/dL 10/18/18 10/18/18 10/18/18 Range/Units 07:13 07:13 07:56 RBC 3.33 L (3.65-5.03) M/mm3 Hgb 10.1 L (11.8-15.2) gm/dl Hct 29.9 L (35.5-45.6) % RDW 12.8 L (13.2-15.2) % [place] % (Auto) 8.1 H (0.0-7.3) % Eos % (Auto) 4.6 H (0.0-4.3) % Glucose 156 H (75-100) mg/dL POC Glucose 250 H (70-105) Calcium 8.2 L (8.4-10.2) mg/dL Medications & Allergies - Medications Allergies/Adverse Reactions: Allergies No Known Allergies Allergy (Unverified 10/14/18 21:13) Home Medications: Home Medications Medication Instructions Recorded Confirmed Last Taken Type Aspirin [Aspirin BABY CHEW TAB] 81 mg PO QHS 10/18/18 10/18/18 Unknown History Al Oakley 24,000 Units Capsule 24,000 units PO TID 10/18/18 10/18/18 Unknown History Docusate Sodium [Colace CAP] 100 mg PO DAILY 10/18/18 10/18/18 Unknown History FLUoxetine HCL [PROzac] 40 mg PO QDAY 10/18/18 10/18/18 Unknown History Gabapentin [Neurontin] 600 mg PO QHS 10/18/18 10/18/18 Unknown History Insulin Glargine,Hum.rec.anlog 40 units SQ QAM 10/18/18 10/18/18 Unknown History [Touraisa Solostar] Levothyroxine [Synthroid] 100 mcg PO QAM 10/18/18 10/18/18 Unknown History Lisinopril [Zestril TAB] 5 mg PO QHS 10/18/18 10/18/18 Unknown History Memantine [Namenda] 10 mg PO BID 10/18/18 10/18/18 Unknown History Pantoprazole [Protonix] 40 mg PO QDAY 10/18/18 10/18/18 Unknown History Simvastatin 40 mg PO QHS 10/18/18 10/18/18 Unknown History Tizanidine HCl [Zanaflex 4mg CAP] 4 mg PO QHS 10/18/18 10/18/18 Unknown History Active Medications: Generic Name Dose Route Start Last Admin Trade Name Freq PRN Reason Stop Dose Admin Acetaminophen 650 mg 08/28/19 21:27 10/16/18 23:45 Tylenol PO 650 mg Q4H PRN Administration Pain MILD(1-3)/Fever >100.5/ALMARAZ Dextrose 50 ml 10/15/18 14:22 D50w (25gm) Syringe IV PRN PRN Hypoglycemia Enoxaparin Sodium 40 mg 10/16/18 10:00 10/18/18 09:32 Lovenox SUB-Q 40 mg QDAY@1000 BALBINA Administration Fentanyl 50 mcg 10/14/18 18:43 Sublimaze IV Q5MIN PRN Pain , Severe (7-10) Fluoxetine HCl 40 mg 10/15/18 10:00 10/18/18 09:30 Prozac PO 40 mg QDAY BALBINA Administration Gabapentin 600 mg 10/14/18 22:00 10/17/18 22:18 Neurontin PO 600 mg QHS BALBINA Administration Hydralazine HCl 10 mg 10/15/18 04:43 10/17/18 22:19 Apresoline IV 10 mg Q4H PRN Administration Blood Pressure Cefepime HCl 2 gm in 100 mls @ 200 mls/hr 10/15/18 22:00 10/18/18 09:33 Maxipime/Ns 2 Gm/100 Ml IV 200 mls/hr Q12HR BALBINA Administration Protocol Sodium Chloride 1,000 mls @ 75 mls/hr 10/15/18 15:00 10/18/18 11:04 Nacl 0.9% 1000 Ml IV 75 mls/hr DIRECT BALBINA Administration Insulin Human Lispro 0 unit 10/14/18 22:00 10/18/18 08:00 Humalog SUB-Q 4 unit ACHS BALBINA Administration Protocol Levothyroxine Sodium 100 mcg 10/15/18 06:00 10/18/18 08:00 Synthroid PO 100 mcg DAILY@0600 BALBINA Administration Lisinopril 5 mg 10/15/18 10:00 10/18/18 09:32 Zestril PO 5 mg QDAY BALBINA Administration Loratadine 10 mg 10/15/18 10:00 10/18/18 09:30 Claritin PO 10 mg QDAY BALBINA Administration Memantine 10 mg 10/14/18 22:00 10/18/18 09:30 Namenda PO 10 mg Q12HR BALBINA Administration Ondansetron HCl 4 mg 10/14/18 21:27 Zofran IV Q8H PRN Nausea And Vomiting Oxycodone/Acetaminophen 2 tab 10/14/18 21:48 10/16/18 18:02 Percocet 5/325 PO 2 tab Q6H PRN Administration Pain, Moderate (4-6) Pantoprazole Sodium 40 mg 10/15/18 10:00 10/18/18 09:31 Protonix PO 40 mg QDAY BALBINA Administration Pravastatin Sodium 80 mg 10/14/18 22:00 10/17/18 22:18 Pravachol PO 80 mg QHS BALBINA Administration Sodium Chloride 10 ml 10/14/18 22:00 10/18/18 09:31 Sodium Chloride Flush Syringe 10 Ml IV 10 ml BID BALBINA Administration Sodium Chloride 10 ml 10/14/18 21:27 Sodium Chloride Flush Syringe 10 Ml IV PRN PRN LINE FLUSH Tamsulosin HCl 0.4 mg 10/14/18 22:00 10/17/18 22:18 Flomax PO 0.4 mg QHS BALBINA Administration Tizanidine HCl 4 mg 10/14/18 22:46 10/17/18 22:17 Zanaflex PO 4 mg Q6H PRN Administration Muscle Spasm
[2018-10-18] MEDS: ROCEPHIN/NS 1 GM/50 ML 1 GM/50 ML BAG IV SCH (14:00)
[2018-10-18] MEDS: FLOMAX PO SCH (21:33)
[2018-10-18] MEDS: NEURONTIN PO SCH (21:33)
[2018-10-18] MEDS: PRAVACHOL PO SCH (21:33)
[2018-10-19] MEDS: NACL 0.9% 1000 ML 1,000 ML IV SCH ×2 (01:55→15:46)
[2018-10-19] MEDS: SYNTHROID PO SCH (07:45)
[2018-10-19 07:54] LABS: Basophils % (Auto) 0.5 % (0.0-1.8); Eosinophils # (Auto) 0.3 K/mm3 (0.0-0.4); Eosinophils % (Auto) 4.4 % (0.0-4.3); Hematocrit 29.8 % (35.5-45.6); Hemoglobin 10.1 gm/dl (11.8-15.2); Lymphocytes # (Auto) 1.7 K/mm3 (1.2-5.4); Lymphocytes % (Auto) 22.1 % (13.4-35.0); Mean Corpuscular HGB Conc 34 % (32-34); Mean Corpuscular Volume 89 fl (84-94); Monocytes # (Auto) 0.6 K/mm3 (0.0-0.8); Monocytes % (Auto) 8.1 % (0.0-7.3); Platelet Count 236 K/mm3 (140-440); Red Blood Count 3.33 M/mm3 (3.65-5.03); Red Cell Distribution Width 13.2 % (13.2-15.2)
[2018-10-19] MEDS: HumaLOG SUB-Q SCH ×4 (08:00→21:15)
[2018-10-19 08:06] LABS: BUN/Creatinine Ratio 11; Blood Urea Nitrogen 12 mg/dL (9-20); Calcium 8.3 mg/dL (8.4-10.2); Hemolysis Index 8
[2018-10-19] MEDS: LOVENOX SUB-Q SCH (09:27)
[2018-10-19] MEDS: PROTONIX PO SCH (09:27)
[2018-10-19] MEDS: ROCEPHIN/NS 1 GM/50 ML 1 GM/50 ML BAG IV SCH (09:27)
[2018-10-19] MEDS: PROzac PO SCH (09:28)
[2018-10-19] MEDS: CLARITIN PO SCH (09:28)
[2018-10-19] MEDS: SODIUM CHLORIDE FLUSH SYRINGE 10 ML IV SCH ×2 (09:28→21:23)
[2018-10-19] MEDS: ZESTRIL PO SCH (09:28)
[2018-10-19] MEDS: NAMENDA PO SCH ×2 (09:28→21:15)
--- NOTE | 2018-10-19 16:15 | Progress Note ---
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 Patient's mental status improved and febrile nature improved after removal of infected toe. Wound care to see patient tomorrow for wound VAC placement. ID for antibiotics. Appreciate assistance. Medicine for diabetic control. Appreciate assistance. After wound VAC place, patient will need wound care appointment and wound VAC insurance precertification for discharge. Case management was gone by the time I saw the patient. Subjective Date of service: 10/19/18 Principal diagnosis: diabetic nephropathy, status post debridements, T2DM, CAD, PAD. Interval history: Doing well. Since surgery, afebrile. No complaints. The foot is warm and well-perfused. Bandages taken down demonstrating no further purulence with some areas of mild scabbing noted. Palpable right dorsalis pedis pulse Objective - Constitutional Vitals: Vital Signs - 12hr 10/19/18 10/19/18 10/19/18 07:50 07:51 09:25 Temperature 98.3 F 98.3 F Pulse Rate 55 L 70 Pulse Rate [ From Monitor] Respiratory 18 18 Rate Blood Pressure 148/37 125/44 O2 Sat by Pulse 99 99 Oximetry 10/19/18 10/19/18 10/19/18 09:28 10:00 11:44 Temperature 98.5 F Pulse Rate 70 59 L Pulse Rate [ 78 From Monitor] Respiratory 18 Rate Blood Pressure 125/60 148/55 O2 Sat by Pulse 100 97 Oximetry General appearance: Present: no acute distress - EENT Eyes: EOM intact - Respiratory Respiratory effort: normal Extremities: normal temperature, normal color, abnormal (see subjective ; wound with scab on lateral foot and at 1st digit defect) - Psychiatric Psychiatric: appropriate mood/affect, cooperative - Labs CBC & Chem 7: 10/19/18 06:48 10/19/18 06:48 Labs: Abnormal lab results 10/18/18 10/18/18 10/19/18 Range/Units 16:24 20:51 06:48 RBC 3.33 L (3.65-5.03) M/mm3 Hgb 10.1 L (11.8-15.2) gm/dl Hct 29.8 L (35.5-45.6) % [place] % (Auto) 8.1 H (0.0-7.3) % Eos % (Auto) 4.4 H (0.0-4.3) % Glucose (75-100) mg/dL POC Glucose 180 H 193 H (70-105) Calcium (8.4-10.2) mg/dL 10/19/18 10/19/18 10/19/18 Range/Units 06:48 08:00 11:50 RBC (3.65-5.03) M/mm3 Hgb (11.8-15.2) gm/dl Hct (35.5-45.6) % [place] % (Auto) (0.0-7.3) % Eos % (Auto) (0.0-4.3) % Glucose 149 H (75-100) mg/dL POC Glucose 154 H 246 H (70-105) Calcium 8.3 L (8.4-10.2) mg/dL Medications & Allergies - Medications Allergies/Adverse Reactions: Allergies No Known Allergies Allergy (Unverified 10/14/18 21:13) Home Medications: Home Medications Medication Instructions Recorded Confirmed Last Taken Type Aspirin [Aspirin BABY CHEW TAB] 81 mg PO QHS 10/18/18 10/18/18 Unknown History Al Oakley 24,000 Units Capsule 24,000 units PO TID 10/18/18 10/18/18 Unknown History Docusate Sodium [Colace CAP] 100 mg PO DAILY 10/18/18 10/18/18 Unknown History FLUoxetine HCL [PROzac] 40 mg PO QDAY 10/18/18 10/18/18 Unknown History Gabapentin [Neurontin] 600 mg PO QHS 10/18/18 10/18/18 Unknown History Insulin Glargine,Hum.rec.anlog 40 units SQ QAM 10/18/18 10/18/18 Unknown History [Touraisa Solostar] Levothyroxine [Synthroid] 100 mcg PO QAM 10/18/18 10/18/18 Unknown History Lisinopril [Zestril TAB] 5 mg PO QHS 10/18/18 10/18/18 Unknown History Memantine [Namenda] 10 mg PO BID 10/18/18 10/18/18 Unknown History Pantoprazole [Protonix] 40 mg PO QDAY 10/18/18 10/18/18 Unknown History Simvastatin 40 mg PO QHS 10/18/18 10/18/18 Unknown History Tizanidine HCl [Zanaflex 4mg CAP] 4 mg PO QHS 10/18/18 10/18/18 Unknown History Active Medications: Generic Name Dose Route Start Last Admin Trade Name Freq PRN Reason Stop Dose Admin Acetaminophen 650 mg 10/14/18 21:27 10/16/18 23:45 Tylenol PO 650 mg Q4H PRN Administration Pain MILD(1-3)/Fever >100.5/ALMARAZ Dextrose 50 ml 10/15/18 14:22 D50w (25gm) Syringe IV PRN PRN Hypoglycemia Enoxaparin Sodium 40 mg 10/16/18 10:00 10/19/18 09:27 Lovenox SUB-Q 40 mg QDAY@1000 BALBINA Administration Fentanyl 50 mcg 10/14/18 18:43 Sublimaze IV Q5MIN PRN Pain , Severe (7-10) Fluoxetine HCl 40 mg 10/15/18 10:00 10/19/18 09:28 Prozac PO 40 mg QDAY BALBINA Administration Gabapentin 600 mg 10/14/18 22:00 10/18/18 21:33 Neurontin PO 600 mg QHS BALBINA Administration Hydralazine HCl 10 mg 10/15/18 04:43 10/17/18 22:19 Apresoline IV 10 mg Q4H PRN Administration Blood Pressure Sodium Chloride 1,000 mls @ 75 mls/hr 10/15/18 15:00 10/19/18 15:46 Nacl 0.9% 1000 Ml IV 75 mls/hr DIRECT BALBINA Administration Ceftriaxone Sodium 1 gm in 50 mls @ 100 mls/hr 10/18/18 13:30 10/19/18 09:27 Rocephin/Ns 1 Gm/50 Ml IV 100 mls/hr Q24HR BALBINA Administration Insulin Human Lispro 0 unit 10/14/18 22:00 10/19/18 12:27 Humalog SUB-Q 3 unit ACHS BALBINA Administration Protocol Levothyroxine Sodium 100 mcg 10/15/18 06:00 10/19/18 07:45 Synthroid PO 100 mcg DAILY@0600 BALBINA Administration Lisinopril 5 mg 10/15/18 10:00 10/19/18 09:28 Zestril PO 5 mg QDAY BALBINA Administration Loratadine 10 mg 10/15/18 10:00 10/19/18 09:28 Claritin PO 10 mg QDAY BALBINA Administration Memantine 10 mg 10/14/18 22:00 10/19/18 09:28 Namenda PO 10 mg Q12HR BALBINA Administration Ondansetron HCl 4 mg 10/14/18 21:27 Zofran IV Q8H PRN Nausea And Vomiting Oxycodone/Acetaminophen 2 tab 10/14/18 21:48 10/16/18 18:02 Percocet 5/325 PO 2 tab Q6H PRN Administration Pain, Moderate (4-6) Pantoprazole Sodium 40 mg 10/15/18 10:00 10/19/18 09:27 Protonix PO 40 mg QDAY BALBINA Administration Pravastatin Sodium 80 mg 10/14/18 22:00 10/18/18 21:33 Pravachol PO 80 mg QHS BALBINA Administration Sodium Chloride 10 ml 10/14/18 22:00 10/19/18 09:28 Sodium Chloride Flush Syringe 10 Ml IV 10 ml BID BALBINA Administration Sodium Chloride 10 ml 10/14/18 21:27 Sodium Chloride Flush Syringe 10 Ml IV PRN PRN LINE FLUSH Tamsulosin HCl 0.4 mg 10/14/18 22:00 10/18/18 21:33 Flomax PO 0.4 mg QHS BALBINA Administration Tizanidine HCl 4 mg 10/14/18 22:46 10/17/18 22:17 Zanaflex PO 4 mg Q6H PRN Administration Muscle Spasm
[2018-10-19] MEDS: PRAVACHOL PO SCH (21:15)
[2018-10-19] MEDS: NEURONTIN PO SCH (21:15)
[2018-10-19] MEDS: FLOMAX PO SCH (21:15)
[2018-10-20] MEDS: NACL 0.9% 1000 ML 1,000 ML IV SCH (06:30)
[2018-10-20] MEDS: SYNTHROID PO SCH (06:30)
--- NOTE | 2018-10-20 07:15 | Progress Note ---
Assessment and Plan Diabetic left foot ulcer s/p debridement Local wound care . Foot elevation Cultures from wound showing Citrobacter ID consulted DM SSI consistent CHO DIET Mildly elevated BG A1c-6.7 Hyperkalemia - corrected ROSANNE - improved IVF Monitor BUN Cr DVT PPX with Lovenox and GI with pepcid Subjective Date of service: 10/19/18 Principal diagnosis: diabetic nephropathy, status post debridements, T2DM, CAD, PAD. Interval history: per hx "88 yo M PMHx CAD, Dm2, neuropathy, PAD admitted to hospital directly from his surgeon's office. He had initially presented there yesterday with a 3 week history of AMS and fevers which were associated with a worsening of the wound on his foot. It was ascertained that the dressings on his foot were being held in place by a too tight bandage. He was admitted for urgent surgical management of the wounds yesterday. He was taken to the OR where the wounds were found to involve the firtst metatarsal head, and over the lateral aspect of the foot. The 1st ray was amputated and the other wounds were debrided and found to extend down to the muscle and fascia layer but did not involve the bone. Family reports he is much improved today, and is alert and oriented during my interview. Denies any pain. " Objective - Constitutional Vitals: Vital Signs - 12hr 10/19/18 10/19/18 10/20/18 19:18 23:39 04:16 Temperature 98.0 F 98.0 F 98.0 F Pulse Rate 60 47 L 52 L Respiratory 18 18 20 Rate Blood Pressure 177/60 161/59 162/55 O2 Sat by Pulse 100 98 98 Oximetry General appearance: Present: no acute distress, well-nourished - EENT Eyes: PERRL, EOM intact ENT: hearing intact, clear oral mucosa Ears: bilateral: normal - Neck Neck: supple, normal ROM - Respiratory Respiratory effort: normal Respiratory: bilateral: CTA - Breasts Breasts: normal - Cardiovascular Rhythm: regular Heart Sounds: Present: S1 & S2. Absent: gallop, rub Extremities: pulses intact, No edema, normal color, Full ROM - Gastrointestinal General gastrointestinal: Present: soft, non-tender, non-distended, normal bowel sounds - Genitourinary Male genitourinary: normal - Integumentary Integumentary: clear, warm, dry - Musculoskeletal Musculoskeletal: 1, strength equal bilaterally - Neurologic Neurologic: moves all extremities - Psychiatric Psychiatric: memory intact, appropriate mood/affect, intact judgment & insight - Labs CBC & Chem 7: 10/19/18 06:48 10/19/18 06:48 Labs: Abnormal lab results 10/19/18 10/19/18 10/19/18 Range/Units 06:48 06:48 08:00 RBC 3.33 L (3.65-5.03) M/mm3 Hgb 10.1 L (11.8-15.2) gm/dl Hct 29.8 L (35.5-45.6) % [place] % (Auto) 8.1 H (0.0-7.3) % Eos % (Auto) 4.4 H (0.0-4.3) % Glucose 149 H (75-100) mg/dL POC Glucose 154 H (70-105) Calcium 8.3 L (8.4-10.2) mg/dL 10/19/18 10/19/18 10/19/18 Range/Units 11:50 16:24 20:24 RBC (3.65-5.03) M/mm3 Hgb (11.8-15.2) gm/dl Hct (35.5-45.6) % [place] % (Auto) (0.0-7.3) % Eos % (Auto) (0.0-4.3) % Glucose (75-100) mg/dL POC Glucose 246 H 190 H 198 H (70-105) Calcium (8.4-10.2) mg/dL
[2018-10-20 07:28] LABS: Basophils % (Auto) 0.6 % (0.0-1.8); Eosinophils # (Auto) 0.3 K/mm3 (0.0-0.4); Eosinophils % (Auto) 4.6 % (0.0-4.3); Hemoglobin 10.1 gm/dl (11.8-15.2); Lymphocytes # (Auto) 1.9 K/mm3 (1.2-5.4); Lymphocytes % (Auto) 26.2 % (13.4-35.0); Mean Corpuscular HGB Conc 34 % (32-34); Mean Corpuscular Volume 90 fl (84-94); Monocytes # (Auto) 0.6 K/mm3 (0.0-0.8); Monocytes % (Auto) 8.4 % (0.0-7.3); Platelet Count 233 K/mm3 (140-440); Red Blood Count 3.35 M/mm3 (3.65-5.03); Red Cell Distribution Width 13.1 % (13.2-15.2)
[2018-10-20 07:43] LABS: BUN/Creatinine Ratio 11; Blood Urea Nitrogen 12 mg/dL (9-20); Hemolysis Index 1
[2018-10-20] MEDS: HumaLOG SUB-Q SCH ×2 (08:00→12:00)
--- NOTE | 2018-10-20 09:34 | Progress Note ---
Assessment and Plan Cultures: 10/14 surgical Cx - Citrobacter koseri sens to FQ, cefepime, ceftriaxone A/P: 88 yo M PMHx CAD, Dm2, neuropathy, PAD admitted with osteomyelitis and infected diabetic foot wound. 1. 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 Infected L diabetic foot wound - debridement of left foot ulcers at bedside. Outpatient wound care with HBOT. Dr. Vasques following. 3. CAD 4. DM2 5. PAD - s/p recent stent placement. Recs: - continue cefepime to 2g q12h. - follow up surgical cultures and pathology - may take 5-7 days because the bone has to be decalcified. If patient is ready to be discharged before biopsy margin is back, one alternative would be to give him PO levaquin for 7-10 days and f/u in the ID office in 1 week, if margin is positive for osteomyelitis will arrange IV abx in the office - outpatient wound care and HBOT - follow-up ID office in 2 weeks (sent to supervisor assembly) [facility] M: [id number] O:[phone] Subjective Date of service: 10/20/18 Principal diagnosis: diabetic nephropathy, status post debridements, T2DM, CAD, PAD. Interval history: Patient seen and examined. Generalized weakness. No SOB or fevers. at bedside. Objective - Exam Narrative Exam: Constitutional: Awake. Alert. Generalized weakness Head, Ears, Nose: Normocephalic, atraumatic. External ears, nose normal Eyes: Conjunctivae/corneas clear. No icterus. No ptosis. Neck: Supple, no meningeal signs Oral: dentition fair, no thrush Cardiovascular: S1, S2 normal. Respiratory: Good air entry, clear to auscultation bilaterally GI: Soft, non-tender; bowel sounds normal. No peritoneal signs. Musculoskeletal: No pedal edema, no cyanosis. L foot s/p 1st ray amputation. Foot dressed. Skin: No rash or abscess Hem/Lymphatic: No palpable cervical or supraclavicular nodes. No lymphangitis Psych: Mood ok. Affect normal Neurological: Awake, alert, oriented. No gross abnormality - Constitutional Vitals: Vital Signs Temp Pulse Resp BP Pulse Ox 98.0 F 78 20 162/55 100 10/20/18 04:16 10/20/18 08:15 10/20/18 04:16 10/20/18 04:16 10/20/18 08:15 Temperature -Last 24 Hours Temperature 98.0 F Temperature 98.0 F Temperature 98.0 F Temperature 98.0 F Temperature 98.5 F - Labs CBC & Chem 7: 10/20/18 06:49 10/20/18 06:49 Labs: Abnormal lab results 10/19/18 10/19/18 10/19/18 Range/Units 11:50 16:24 20:24 RBC (3.65-5.03) M/mm3 Hgb (11.8-15.2) gm/dl Hct (35.5-45.6) % RDW (13.2-15.2) % [place] % (Auto) (0.0-7.3) % Eos % (Auto) (0.0-4.3) % Glucose (75-100) mg/dL POC Glucose 246 H 190 H 198 H (70-105) Calcium (8.4-10.2) mg/dL 10/20/18 10/20/18 10/20/18 Range/Units 06:49 06:49 08:36 RBC 3.35 L (3.65-5.03) M/mm3 Hgb 10.1 L (11.8-15.2) gm/dl Hct 30.0 L (35.5-45.6) % RDW 13.1 L (13.2-15.2) % Emmons % (Auto) 8.4 H (0.0-7.3) % Eos % (Auto) 4.6 H (0.0-4.3) % Glucose 153 H (75-100) mg/dL POC Glucose 148 H (70-105) Calcium 8.0 L (8.4-10.2) mg/dL
[2018-10-20] MEDS ORDERED: MAXIPIME/NS 2 GM/100 ML 2 GM/100 ML BAG IV SCH (10:00)
[2018-10-20] MEDS: PROzac PO SCH (10:40)
[2018-10-20] MEDS: LOVENOX SUB-Q SCH (10:40)
[2018-10-20] MEDS: NAMENDA PO SCH (10:42)
[2018-10-20] MEDS: PROTONIX PO SCH (10:42)
[2018-10-20] MEDS: CLARITIN PO SCH (10:42)
[2018-10-20] MEDS: ZESTRIL PO SCH (10:43)
[2018-10-20] MEDS: SODIUM CHLORIDE FLUSH SYRINGE 10 ML IV SCH (10:43)
[2018-10-20 10:44] VITALS: BP 139/60
--- NOTE | 2018-10-20 13:12 | Progress Note ---
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 Patient's mental status improved and febrile nature improved after removal of infected toe. Wound care saw patient and believes patient will require debridement to allow for wound vac to be placed. Wound care mentioned Dr. Salazar would be willing to see the patient to assist with wound vac placement/debridement. Appreciate wound care and Dr. Salazar assistance. ID for antibiotics. Appreciate assistance. Medicine for diabetic control. Appreciate assistance. After wound VAC place, patient will need wound care appointment and wound VAC insurance precertification for discharge. Discussed with case management. Subjective Date of service: 10/20/18 Principal diagnosis: diabetic nephropathy, status post debridements, T2DM, CAD, PAD. Interval history: Doing well. Since surgery, afebrile. No complaints. The foot is warm and well-perfused. Bandages in place. Objective - Constitutional Vitals: Vital Signs - 12hr 10/20/18 10/20/18 10/20/18 04:16 08:15 08:28 Temperature 98.0 F 98.1 F Pulse Rate 52 L 56 L Pulse Rate [ 78 From Monitor] Respiratory 20 18 Rate Blood Pressure 162/55 164/30 O2 Sat by Pulse 98 100 98 Oximetry 10/20/18 10/20/18 10:34 10:43 Temperature Pulse Rate 55 L 69 Pulse Rate [ From Monitor] Respiratory Rate Blood Pressure 145/41 139/60 O2 Sat by Pulse 99 Oximetry General appearance: Present: no acute distress - EENT Eyes: EOM intact ENT: hearing intact - Respiratory Respiratory effort: normal Extremities: normal temperature, normal color, abnormal (see subjective) - Labs CBC & Chem 7: 10/20/18 06:49 10/20/18 06:49 Labs: Abnormal lab results 10/19/18 10/19/18 10/20/18 Range/Units 16:24 20:24 06:49 RBC 3.35 L (3.65-5.03) M/mm3 Hgb 10.1 L (11.8-15.2) gm/dl Hct 30.0 L (35.5-45.6) % RDW 13.1 L (13.2-15.2) % [place] % (Auto) 8.4 H (0.0-7.3) % Eos % (Auto) 4.6 H (0.0-4.3) % Glucose (75-100) mg/dL POC Glucose 190 H 198 H (70-105) Calcium (8.4-10.2) mg/dL 10/20/18 10/20/18 Range/Units 06:49 08:36 RBC (3.65-5.03) M/mm3 Hgb (11.8-15.2) gm/dl Hct (35.5-45.6) % RDW (13.2-15.2) % [place] % (Auto) (0.0-7.3) % Eos % (Auto) (0.0-4.3) % Glucose 153 H (75-100) mg/dL POC Glucose 148 H (70-105) Calcium 8.0 L (8.4-10.2) mg/dL Medications & Allergies - Medications Allergies/Adverse Reactions: Allergies No Known Allergies Allergy (Unverified 10/14/18 21:13) Home Medications: Home Medications Medication Instructions Recorded Confirmed Last Taken Type Aspirin [Aspirin BABY CHEW TAB] 81 mg PO QHS 10/18/18 10/18/18 Unknown History Al Oakley 24,000 Units Capsule 24,000 units PO TID 10/18/18 10/18/18 Unknown History Docusate Sodium [Colace CAP] 100 mg PO DAILY 10/18/18 10/18/18 Unknown History FLUoxetine HCL [PROzac] 40 mg PO QDAY 10/18/18 10/18/18 Unknown History Gabapentin [Neurontin] 600 mg PO QHS 10/18/18 10/18/18 Unknown History Insulin Glargine,Hum.rec.anlog 40 units SQ QAM 10/18/18 10/18/18 Unknown History [Touraisa Solostar] Levothyroxine [Synthroid] 100 mcg PO QAM 10/18/18 10/18/18 Unknown History Lisinopril [Zestril TAB] 5 mg PO QHS 10/18/18 10/18/18 Unknown History Memantine [Namenda] 10 mg PO BID 10/18/18 10/18/18 Unknown History Pantoprazole [Protonix] 40 mg PO QDAY 10/18/18 10/18/18 Unknown History Simvastatin 40 mg PO QHS 10/18/18 10/18/18 Unknown History Tizanidine HCl [Zanaflex 4mg CAP] 4 mg PO QHS 10/18/18 10/18/18 Unknown History Active Medications: Generic Name Dose Route Start Last Admin Trade Name Freq PRN Reason Stop Dose Admin Acetaminophen 650 mg 10/14/18 21:27 10/16/18 23:45 Tylenol PO 650 mg Q4H PRN Administration Pain MILD(1-3)/Fever >100.5/ALMARAZ Dextrose 50 ml 10/15/18 14:22 D50w (25gm) Syringe IV PRN PRN Hypoglycemia Enoxaparin Sodium 40 mg 10/16/18 10:00 10/20/18 10:40 Lovenox SUB-Q 40 mg QDAY@1000 BALBINA Administration Fluoxetine HCl 40 mg 10/15/18 10:00 10/20/18 10:40 Prozac PO 40 mg QDAY BALBINA Administration Gabapentin 600 mg 10/14/18 22:00 10/19/18 21:15 Neurontin PO 600 mg QHS BALBINA Administration Hydralazine HCl 10 mg 10/15/18 04:43 10/17/18 22:19 Apresoline IV 10 mg Q4H PRN Administration Blood Pressure Sodium Chloride 1,000 mls @ 75 mls/hr 10/15/18 15:00 10/20/18 06:30 Nacl 0.9% 1000 Ml IV 75 mls/hr DIRECT BALBINA Administration Cefepime HCl 2 gm in 100 mls @ 200 mls/hr 10/20/18 10:00 10/20/18 10:43 Maxipime/Ns 2 Gm/100 Ml IV 200 mls/hr Q12HR BALBINA Administration Protocol Insulin Human Lispro 0 unit 10/14/18 22:00 10/20/18 08:00 Humalog SUB-Q Not Given ACHS BALBINA Protocol Levothyroxine Sodium 100 mcg 10/15/18 06:00 10/20/18 06:30 Synthroid PO 100 mcg DAILY@0600 BALBINA Administration Lisinopril 5 mg 10/15/18 10:00 10/20/18 10:43 Zestril PO 5 mg QDAY BALBINA Administration Loratadine 10 mg 10/15/18 10:00 10/20/18 10:42 Claritin PO 10 mg QDAY [facility] Administration Memantine 10 mg 10/14/18 22:00 10/20/18 10:42 Namenda PO 10 mg Q12HR [facility] Administration Ondansetron HCl 4 mg 10/14/18 21:27 Zofran IV Q8H PRN Nausea And Vomiting Oxycodone/Acetaminophen 2 tab 10/14/18 21:48 10/16/18 18:02 Percocet 5/325 PO 2 tab Q6H PRN Administration Pain, Moderate (4-6) Pantoprazole Sodium 40 mg 10/15/18 10:00 10/20/18 10:42 Protonix PO 40 mg QDAY [facility]BINA Administration Pravastatin Sodium 80 mg 10/14/18 22:00 10/19/18 21:15 Pravachol PO 80 mg QHS [facility]INA Administration Sodium Chloride 10 ml 10/14/18 22:00 10/20/18 10:43 Sodium Chloride Flush Syringe 10 Ml IV 10 ml BID BALBINA Administration Sodium Chloride 10 ml 10/14/18 21:27 Sodium Chloride Flush Syringe 10 Ml IV PRN PRN LINE FLUSH Tamsulosin HCl 0.4 mg 10/14/18 22:00 10/19/18 21:15 Flomax PO 0.4 mg QHS [facility] Administration Tizanidine HCl 4 mg 10/14/18 22:46 10/17/18 22:17 Zanaflex PO 4 mg Q6H PRN Administration Muscle Spasm
--- NOTE | 2018-10-20 13:20 | Consultation ---
History of Present Illness Consult date: 10/20/18 Chief complaint: Diabetic left foot ulcers - History of present illness History of present illness: 88 yo diabetic male with PAD. He chews tobacco. He is s/p TMA of the left great toe. He has been evaluated by Vascular. Past History Past Medical History: CAD, diabetes, PVD Past Surgical History: Other (Toe amputation) Social history: denies: smoking, alcohol abuse Family history: CAD, diabetes Medications and Allergies Allergies Allergy/AdvReac Type Severity Reaction Status Date / Time No Known Allergies Allergy Unverified 10/14/18 21:13 Home Medications Medication Instructions Recorded Confirmed Last Taken Type Aspirin [Aspirin BABY CHEW TAB] 81 mg PO QHS 10/18/18 10/18/18 Unknown History Al Oakley 24,000 Units Capsule 24,000 units PO TID 10/18/18 10/18/18 Unknown History Docusate Sodium [Colace CAP] 100 mg PO DAILY 10/18/18 10/18/18 Unknown History FLUoxetine HCL [PROzac] 40 mg PO QDAY 10/18/18 10/18/18 Unknown History Gabapentin [Neurontin] 600 mg PO QHS 10/18/18 10/18/18 Unknown History Insulin Glargine,Hum.rec.anlog 40 units SQ QAM 10/18/18 10/18/18 Unknown History [Michelle Sanchez] Levothyroxine [Synthroid] 100 mcg PO QAM 10/18/18 10/18/18 Unknown History Lisinopril [Zestril TAB] 5 mg PO QHS 10/18/18 10/18/18 Unknown History Memantine [Namenda] 10 mg PO BID 10/18/18 10/18/18 Unknown History Pantoprazole [Protonix] 40 mg PO QDAY 10/18/18 10/18/18 Unknown History Simvastatin 40 mg PO QHS 10/18/18 10/18/18 Unknown History Tizanidine HCl [Zanaflex 4mg CAP] 4 mg PO QHS 10/18/18 10/18/18 Unknown History Active Meds: Active Medications Acetaminophen (Tylenol) 650 mg PO Q4H PRN PRN Reason: Pain MILD(1-3)/Fever >100.5/ALMARAZ Last Admin: 10/16/18 23:45 Dose: 650 mg Documented by: Dextrose (D50w (25gm) Syringe) 50 ml IV PRN PRN PRN Reason: Hypoglycemia Enoxaparin Sodium (Lovenox) 40 mg SUB-Q QDAY@1000 [facility] Last Admin: 10/20/18 10:40 Dose: 40 mg Documented by: Fluoxetine HCl (Prozac) 40 mg PO QDAY [facility] Last Admin: 10/20/18 10:40 Dose: 40 mg Documented by: Gabapentin (Neurontin) 600 mg PO QHS [facility] Last Admin: 10/19/18 21:15 Dose: 600 mg Documented by: Hydralazine HCl (Apresoline) 10 mg IV Q4H PRN PRN Reason: Blood Pressure Last Admin: 10/17/18 22:19 Dose: 10 mg Documented by: Sodium Chloride (Nacl 0.9% 1000 Ml) 1,000 mls @ 75 mls/hr IV DIRECT [facility] Last Admin: 10/20/18 06:30 Dose: 75 mls/hr Documented by: Cefepime HCl (Maxipime/Ns 2 Gm/100 Ml) 2 gm in 100 mls @ 200 mls/hr IV Q12HR [facility]; Protocol Last Admin: 10/20/18 10:43 Dose: 200 mls/hr Documented by: Insulin Human Lispro (Humalog) 0 unit SUB-Q ACHS [facility]; Protocol Last Admin: 10/20/18 08:00 Dose: Not Given Documented by: Levothyroxine Sodium (Synthroid) 100 mcg PO DAILY@0600 [facility] Last Admin: 10/20/18 06:30 Dose: 100 mcg Documented by: Lisinopril (Zestril) 5 mg PO QDAY [facility] Last Admin: 10/20/18 10:43 Dose: 5 mg Documented by: Loratadine (Claritin) 10 mg PO QDAY [facility] Last Admin: 10/20/18 10:42 Dose: 10 mg Documented by: Memantine (Namenda) 10 mg PO Q12HR [facility] Last Admin: 10/20/18 10:42 Dose: 10 mg Documented by: Ondansetron HCl (Zofran) 4 mg IV Q8H PRN PRN Reason: Nausea And Vomiting Oxycodone/Acetaminophen (Percocet 5/325) 2 tab PO Q6H PRN PRN Reason: Pain, Moderate (4-6) Last Admin: 10/16/18 18:02 Dose: 2 tab Documented by: Pantoprazole Sodium (Protonix) 40 mg PO QDAY [facility] Last Admin: 10/20/18 10:42 Dose: 40 mg Documented by: Pravastatin Sodium (Pravachol) 80 mg PO QHS [facility] Last Admin: 10/19/18 21:15 Dose: 80 mg Documented by: Sodium Chloride (Sodium Chloride Flush Syringe 10 Ml) 10 ml IV BID [facility] Last Admin: 10/20/18 10:43 Dose: 10 ml Documented by: Sodium Chloride (Sodium Chloride Flush Syringe 10 Ml) 10 ml IV PRN PRN PRN Reason: LINE FLUSH Tamsulosin HCl (Flomax) 0.4 mg PO QHS [facility] Last Admin: 10/19/18 21:15 Dose: 0.4 mg Documented by: Tizanidine HCl (Zanaflex) 4 mg PO Q6H PRN PRN Reason: Muscle Spasm Last Admin: 10/17/18 22:17 Dose: 4 mg Documented by: Review of Systems All systems: negative (none) Exam Vital Signs Temp Pulse Resp BP Pulse Ox 100.3 F H 80 16 138/31 98 10/14/18 21:35 10/14/18 21:35 10/14/18 21:35 10/14/18 21:35 10/14/18 21:35 - General physical appearance Positive: well developed, well nourished, no distress - Eyes Positive: PERRL, normal occular movement - ENT Positive: normal pinna, normal nares, normal mucosa, no hearing loss, no congestion - Neck Positive: no masses, no bruits, trachea midline, no venous distension - Respiratory Positive: normal expansion, normal respiratory effort, clear to auscultation - Cardiovascular Rhythm: regular Heart Sounds: Present: S1 & S2. Absent: rub, click - Extremities Extremity abnormal: other (There is a 4.4 X 6 X 3.3 cm wound at the former site of the left great toe with necrotic SQ and fascia present. There is also a 2.3 X 4.8 X 0.2 cm ulcer over the lateral aspect of his distal left foot with exposed, necrotic SQ and fascia.) - Breasts Breasts: deferred - Abdomen Abdomen: Present: soft, bowel sounds normal. Absent: tender, distended Hernia: none - Genitourinary Male Genitourinary: deferred - Neurologic Neurologic: alert and oriented to time, place and person, motor strength and sensation are grossly intact - Psychiatric Psychiatric: appropriate mood/affect, intact judgment & insight Results - Labs 10/20/18 06:49 10/20/18 06:49 Abnormal lab results 10/19/18 10/19/18 10/20/18 Range/Units 16:24 20:24 06:49 RBC 3.35 L (3.65-5.03) M/mm3 Hgb 10.1 L (11.8-15.2) gm/dl Hct 30.0 L (35.5-45.6) % RDW 13.1 L (13.2-15.2) % [place] % (Auto) 8.4 H (0.0-7.3) % Eos % (Auto) 4.6 H (0.0-4.3) % Glucose (75-100) mg/dL POC Glucose 190 H 198 H (70-105) Calcium (8.4-10.2) mg/dL 10/20/18 10/20/18 Range/Units 06:49 08:36 RBC (3.65-5.03) M/mm3 Hgb (11.8-15.2) gm/dl Hct (35.5-45.6) % RDW (13.2-15.2) % [place] % (Auto) (0.0-7.3) % Eos % (Auto) (0.0-4.3) % Glucose 153 H (75-100) mg/dL POC Glucose 148 H (70-105) Calcium 8.0 L (8.4-10.2) mg/dL Diabetes panel 10/20/18 Range/Units 06:49 Sodium 140 (137-145) mmol/L Potassium 4.2 (3.6-5.0) mmol/L Chloride 104.5 (98-107) mmol/L Carbon Dioxide 26 (22-30) mmol/L BUN 12 (9-20) mg/dL Creatinine 1.1 (0.8-1.5) mg/dL Glucose 153 H (75-100) mg/dL Calcium 8.0 L (8.4-10.2) mg/dL Calcium panel 10/20/18 Range/Units 06:49 Calcium 8.0 L (8.4-10.2) mg/dL Pituitary panel 10/20/18 Range/Units 06:49 Sodium 140 (137-145) mmol/L Potassium 4.2 (3.6-5.0) mmol/L Chloride 104.5 (98-107) mmol/L Carbon Dioxide 26 (22-30) mmol/L BUN 12 (9-20) mg/dL Creatinine 1.1 (0.8-1.5) mg/dL Glucose 153 H (75-100) mg/dL Calcium 8.0 L (8.4-10.2) mg/dL Adrenal panel 10/20/18 Range/Units 06:49 Sodium 140 (137-145) mmol/L Potassium 4.2 (3.6-5.0) mmol/L Chloride 104.5 (98-107) mmol/L Carbon Dioxide 26 (22-30) mmol/L BUN 12 (9-20) mg/dL Creatinine 1.1 (0.8-1.5) mg/dL Glucose 153 H (75-100) mg/dL Calcium 8.0 L (8.4-10.2) mg/dL - Imaging Additional studies: Duplex arterial US of BLE on 10/16/18 was reviewed. A1c was 6.7 on 10/15/18. Assessment and Plan - Patient Problems (1) Chronic ulcer of left foot with necrosis of muscle Current Visit: Yes Status: Acute Plan to address problem: 1) Will debride left foot ulcers at pt's bedside. 2) Wound care nurse consult 3) F/u in Wound clinic with HBOT 4) Arrange for NPWT
--- NOTE | 2018-10-20 13:40 | Procedure Note ---
Date of procedure: 10/20/18 Pre-op diagnosis: 1) Left medial foot wound 2) Left lateral foot ulcer Post-op diagnosis: same Procedure: Debridement of left medial foot wound and left lateral foot ulcer Description of procedure: Pt was supine on his bed. The left foot was prepped and draped. A surgical, excisional debridement of necrotic SQ tissue and fascia was performed at both of the above sites with forceps and scissors. Bleeding was minimal and was controlled with pressure. Pt tolerated the procedure well. Wounds were then dressed by the Wound Care nurses. Final wound measurements were as follows: 1) Left medial foot wound - 4.6 X 6 X 3.5 cm 2) Left lateral foot wound - 2.5 X 5 X 0.4 cm Anesthesia: none Surgeon: MARILEE BENITEZ Estimated blood loss: minimal Pathology: none Specimen disposition: discarded Condition: stable Disposition: no change
--- NOTE | 2018-10-20 15:36 | Event Note ---
Date: 10/20/18 Contacted by Derek at Wound Care. Dr. Salazar was able to debride the ulcer and patient will followup at Wound Care on for wound vac placement to avoid prolonged stay at [facility]. Plan for probable discharge tomorrow. Will followup in clinic for RLE YUN of 0.21 and LLE CLI with Dr. Dow.
--- NOTE | 2018-10-20 15:40 | Discharge Summary ---
Providers - Providers Date of Admission: 10/14/18 21:27 Date of discharge: 10/20/18 Attending physician: ROSARIO DOHERTY 10/14/18 21:27 Consult to Physician [CONS] Routine Comment: Consulting Provider: MEIR PADILLA Physician Instructions: Reason For Exam: Antibiotics Management for left foot ulceration Consult to Physician [CONS] Routine Comment: Consulting Provider: ALDA DELEON Physician Instructions: Reason For Exam: medical management 10/15/18 09:29 Consult to Wound/ET Nurse [CONS] Routine Reason For Exam: wound eval possible vac 10/1610/17/18 10:38 Physical Therapy Evaluation and Treat [CONS] Routine Comment: Reason For Exam: left foot debridement. 10/20/18 11:28 Consult to Physician [CONS] Routine Comment: Consulting Provider: MARILEE BENITEZ Physician Instructions: surgical debridement of left foot Reason For Exam: left foot ulcer Hospitalization Procedures: P1) Left medial foot wound 2) Left lateral foot ulcer Debridement of left medial foot wound and left lateral foot ulcer done by Dr Martin Tadeo Description of procedure: Pt was supine on his bed. The left foot was prepped and draped. A surgical, excisional debridement of necrotic SQ tissue and fascia was performed at both of the above sites with forceps and scissors. Bleeding was minimal and was controlled with pressure. Pt tolerated the procedure well. Wounds were then dressed by the Wound Care nurses. Final wound measurements were as follows: 1) Left medial foot wound - 4.6 X 6 X 3.5 cm 2) Left lateral foot wound - 2.5 X 5 X 0.4 cm Anesthesia: none Surgeon: MARILEE BENITEZ Estimated blood loss: minimal Pathology: none Specimen disposition: discarded Condition: stable Disposition: no change Hospital course: 1. 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, pending path, on vancomycin and cefepime - follow up surgical cultures and pathology - may take 5-7 days because the bone has to be decalcified.Patient to be discharged before biopsy margin is back, one alternative would be to give him PO levaquin for 7-10 days and f/u in the ID office in 1 week, if margin is positive for osteomyelitis ID will arrange IV abx in the office - outpatient wound care and HBOT - follow-up ID office in 2 weeks (sent to workgroup leader) Follow up in wound clinic with Dr Martin DM CHO DIET Mildly elevated BG A1c-6.7 Cont hypoglycemics and f/u with pcp Hyperkalemia - corrected ROSANNE - improved Wound vac and HBOT as outpatient Disposition: DC-01 TO HOME OR SELFCARE Core Measure Documentation - Palliative Care Palliative Care/ Comfort Measures: Not Applicable - Core Measures Any of the following diagnoses?: none Exam - Constitutional Vitals: Temp Pulse Resp BP Pulse Ox 98.1 F 69 18 139/60 99 10/20/18 08:28 10/20/18 10:43 10/20/18 08:28 10/20/18 10:43 10/20/18 10:34 General appearance: Present: no acute distress, well-nourished - EENT Eyes: Present: PERRL ENT: hearing intact, clear oral mucosa - Neck Neck: Present: supple, normal ROM - Respiratory Respiratory effort: normal Respiratory: bilateral: CTA - Cardiovascular Heart rate: 78 Rhythm: regular Heart Sounds: Present: S1 & S2. Absent: rub, click - Extremities Extremities: pulses symmetrical, No edema, abnormal (L foot ulcer s/p depbridement-see discharge kami williamson) Peripheral Pulses: within normal limits - Abdominal General gastrointestinal: Present: soft, non-tender, non-distended, normal bowel sounds Male genitourinary: Present: normal - Integumentary Integumentary: Present: clear, warm, dry - Musculoskeletal Musculoskeletal: gait normal, strength equal bilaterally - Psychiatric Psychiatric: appropriate mood/affect, intact judgment & insight - Neurologic Neurologic: CNII-XII intact, moves all extremities Plan Weight Bearing Status: Weight Bear as Tolerated Diet: diabetic Durable Medical Equipment Needed Upon Discharge: Walker-Standard Follow up with: ANAYELI INMAN [Other] - 7 Days MARILEE BENITEZ MD [Staff Physician] - 7 Days ANGIE TRISTAN MD [Staff Physician] - 7 Days
--- NOTE | 2018-10-20 17:32 | XRay Report ---
LEFT FOOT, 3 VIEWS 10/20/2018 INDICATION / CLINICAL INFORMATION: left foot ulcer. COMPARISON: None available. FINDINGS: Great toe amputation at the level of the mid first metatarsal. There are areas of irregular lucency noted in the remaining proximal first metatarsal. It is uncertai n if these areas represent localized bony demineralization due to hyperemia or cortical loss secondar y to infection. There is fusiform cortical thickening of the proximal second metatarsal shaft, suggesting healed frac ture. Soft tissue irregularity noted over the great toe amputation site. There is also soft tissue irregularity overlying the distal fifth metatarsal without associated skele deonte abnormality. Signer Name: Albert Shafer MD Signed: 10/20/2018 5:28 PM Workstation Name: [id number]
== END 2018-10-20 18:36 | disposition home health service (06) | DRG 853 ==
LOC: OR 15:42 → 4A 21:27
PROVIDERS: ADMIT Surgery Vascular Surgery; ATTEND Surgery Vascular Surgery
PROC: 0KBW0ZZ Excision of Left Foot Muscle, Open Approach (ICD-10-PCS; principal; 2018-10-14)
PROC: 0Y6N0Z9 Detachment at Left Foot, Partial 1st Ray, Open Approach (ICD-10-PCS; 2018-10-14)
PROC: 0JBR0ZZ Excision of Left Foot Subcutaneous Tissue and Fascia, Open Approach (ICD-10-PCS; 2018-10-20)
PROC: 0JBR0ZZ Excision of Left Foot Subcutaneous Tissue and Fascia, Open Approach (ICD-10-PCS; 2018-10-20)
DX: A41.9 Sepsis, unspecified organism (principal); N17.0 Acute kidney failure with tubular necrosis; M86.8X7 Other osteomyelitis, ankle and foot; E11.52 Type 2 diabetes mellitus with diabetic peripheral angiopathy with gangrene; E11.621 Type 2 diabetes mellitus with foot ulcer; L97.523 Non-pressure chronic ulcer of other part of left foot with necrosis of muscle; I25.10 Atherosclerotic heart disease of native coronary artery without angina pectoris; E87.5 Hyperkalemia; E11.21 Type 2 diabetes mellitus with diabetic nephropathy; E11.40 Type 2 diabetes mellitus with diabetic neuropathy, unspecified; E11.51 Type 2 diabetes mellitus with diabetic peripheral angiopathy without gangrene; E11.69 Type 2 diabetes mellitus with other specified complication; Z86.73 Personal history of transient ischemic attack (TIA), and cerebral infarction without residual deficits
CPT/HCPCS: 36415; 80048; 82962; 83036; 85025; 87076; 87116; 87186; 88305; 88311; 93922; 93925; G0378; A9270-GY; J0360; J0692; J0696; J1650; J1815; J2704; J3010; J3370; J7030; J7040; J7120

== ENCOUNTER 2018-10-22 13:02 | Outpatient (CLI) | payer MEDICARE | END 2018-10-22 13:03 | disposition home or self-care (01) | LOC: WOUND 13:02 | PROVIDERS: ATTEND Surgery | DX: E11.621 Type 2 diabetes mellitus with foot ulcer (principal); L97.423 Non-pressure chronic ulcer of left heel and midfoot with necrosis of muscle; E11.51 Type 2 diabetes mellitus with diabetic peripheral angiopathy without gangrene; I10 Essential (primary) hypertension; I25.10 Atherosclerotic heart disease of native coronary artery without angina pectoris; Z86.73 Personal history of transient ischemic attack (TIA), and cerebral infarction without residual deficits; Z96.659 Presence of unspecified artificial knee joint; Z89.412 Acquired absence of left great toe; Z87.891 Personal history of nicotine dependence | CPT/HCPCS: 11043; 11044; 11047; G0463; 99215 ==

== ENCOUNTER 2018-10-22 15:03 | Outpatient (CLI) | payer MEDICARE ==
--- NOTE | 2018-10-22 16:39 | XRay Report ---
CHEST 2 VIEWS INDICATION / CLINICAL INFORMATION: E11.621) Type 2 diabetes mellitus with foot ulcer/HBO CLEARANCE. COMPARISON: None available. FINDINGS: SUPPORT DEVICES: None. HEART / MEDIASTINUM: No significant abnormality. LUNGS / PLEURA: No significant pulmonary or pleural abnormality. No pneumothorax. ADDITIONAL FINDINGS: No significant additional findings. IMPRESSION: 1. No acute findings. Signer Name: Mukesh Frausto MD Signed: 10/22/2018 4:35 PM Workstation Name: [id number] ([id number]
== END 2018-10-22 15:04 | disposition home or self-care (01) ==
LOC: XRAY 15:03
PROVIDERS: ATTEND Surgery
DX: E11.621 Type 2 diabetes mellitus with foot ulcer (principal); L97.423 Non-pressure chronic ulcer of left heel and midfoot with necrosis of muscle; I10 Essential (primary) hypertension; E78.00 Pure hypercholesterolemia, unspecified; M19.90 Unspecified osteoarthritis, unspecified site; E03.9 Hypothyroidism, unspecified; F32.9 Major depressive disorder, single episode, unspecified; Z86.73 Personal history of transient ischemic attack (TIA), and cerebral infarction without residual deficits
CPT/HCPCS: 71046

== ENCOUNTER 2018-11-05 12:46 | Outpatient (CLI) | payer MEDICARE ==
[2018-11-05] MEDS ORDERED: XYLOCAINE TOPICAL 4% TP ONE (13:00)
[2018-11-05] MEDS ORDERED: SILVER NITRATE TP ONE (13:00)
== END 2018-11-05 12:47 | disposition home or self-care (01) ==
LOC: WOUND 12:46
PROVIDERS: ATTEND Surgery
DX: E11.621 Type 2 diabetes mellitus with foot ulcer (principal); L97.423 Non-pressure chronic ulcer of left heel and midfoot with necrosis of muscle; E11.51 Type 2 diabetes mellitus with diabetic peripheral angiopathy without gangrene; I10 Essential (primary) hypertension; I25.10 Atherosclerotic heart disease of native coronary artery without angina pectoris; Z86.73 Personal history of transient ischemic attack (TIA), and cerebral infarction without residual deficits; Z96.659 Presence of unspecified artificial knee joint; Z89.412 Acquired absence of left great toe; Z87.891 Personal history of nicotine dependence
CPT/HCPCS: 97605

== ENCOUNTER 2018-11-16 12:32 | Outpatient (CLI) | payer MEDICARE | END 2018-11-16 12:33 | disposition home or self-care (01) | LOC: WOUND 12:32 | PROVIDERS: ATTEND Surgery | DX: E11.621 Type 2 diabetes mellitus with foot ulcer (principal); L97.521 Non-pressure chronic ulcer of other part of left foot limited to breakdown of skin; L97.423 Non-pressure chronic ulcer of left heel and midfoot with necrosis of muscle; E11.51 Type 2 diabetes mellitus with diabetic peripheral angiopathy without gangrene; I10 Essential (primary) hypertension; I25.10 Atherosclerotic heart disease of native coronary artery without angina pectoris; Z86.73 Personal history of transient ischemic attack (TIA), and cerebral infarction without residual deficits; Z87.891 Personal history of nicotine dependence | CPT/HCPCS: 82962; 97605; G0277; 99183 ==

== ENCOUNTER 2018-11-17 13:26 | Outpatient (CLI) | payer MEDICARE | END 2018-11-17 13:27 | disposition home or self-care (01) | LOC: WOUND 13:26 | PROVIDERS: ATTEND Surgery | DX: E11.621 Type 2 diabetes mellitus with foot ulcer (principal); L97.423 Non-pressure chronic ulcer of left heel and midfoot with necrosis of muscle; L97.521 Non-pressure chronic ulcer of other part of left foot limited to breakdown of skin; E11.51 Type 2 diabetes mellitus with diabetic peripheral angiopathy without gangrene; I10 Essential (primary) hypertension; I25.10 Atherosclerotic heart disease of native coronary artery without angina pectoris; Z86.73 Personal history of transient ischemic attack (TIA), and cerebral infarction without residual deficits; Z87.891 Personal history of nicotine dependence | CPT/HCPCS: 82962; G0277; 99183 ==

== ENCOUNTER 2018-11-18 12:41 | Outpatient (CLI) | payer MEDICARE | END 2018-11-18 12:42 | disposition home or self-care (01) | LOC: WOUND 12:41 | PROVIDERS: ATTEND Surgery | DX: E11.621 Type 2 diabetes mellitus with foot ulcer (principal); L97.423 Non-pressure chronic ulcer of left heel and midfoot with necrosis of muscle; E11.51 Type 2 diabetes mellitus with diabetic peripheral angiopathy without gangrene; I10 Essential (primary) hypertension; I25.10 Atherosclerotic heart disease of native coronary artery without angina pectoris; Z86.73 Personal history of transient ischemic attack (TIA), and cerebral infarction without residual deficits; Z87.891 Personal history of nicotine dependence | CPT/HCPCS: 82962; G0277; 99183 ==

== ENCOUNTER 2018-11-19 12:43 | Outpatient (CLI) | payer MEDICARE | END 2018-11-19 12:44 | disposition home or self-care (01) | LOC: WOUND 12:43 | PROVIDERS: ATTEND Surgery | DX: E11.621 Type 2 diabetes mellitus with foot ulcer (principal); L97.423 Non-pressure chronic ulcer of left heel and midfoot with necrosis of muscle; E11.51 Type 2 diabetes mellitus with diabetic peripheral angiopathy without gangrene; I10 Essential (primary) hypertension; I25.10 Atherosclerotic heart disease of native coronary artery without angina pectoris; Z86.73 Personal history of transient ischemic attack (TIA), and cerebral infarction without residual deficits; Z87.891 Personal history of nicotine dependence | CPT/HCPCS: 82962; G0277; 99183 ==

== ENCOUNTER 2018-11-20 13:00 | Outpatient (CLI) | payer MEDICARE | END 2018-11-20 13:01 | disposition home or self-care (01) | LOC: WOUND 13:00 | PROVIDERS: ATTEND Surgery | DX: E11.621 Type 2 diabetes mellitus with foot ulcer (principal); L97.423 Non-pressure chronic ulcer of left heel and midfoot with necrosis of muscle; E11.51 Type 2 diabetes mellitus with diabetic peripheral angiopathy without gangrene; I10 Essential (primary) hypertension; I25.10 Atherosclerotic heart disease of native coronary artery without angina pectoris; Z86.73 Personal history of transient ischemic attack (TIA), and cerebral infarction without residual deficits; Z87.891 Personal history of nicotine dependence | CPT/HCPCS: 82962; 99183; G0277 ==

== ENCOUNTER 2018-11-23 12:37 | Outpatient (CLI) | payer MEDICARE | END 2018-11-23 12:38 | disposition home or self-care (01) | LOC: WOUND 12:37 | PROVIDERS: ATTEND Surgery | DX: E11.621 Type 2 diabetes mellitus with foot ulcer (principal); L97.423 Non-pressure chronic ulcer of left heel and midfoot with necrosis of muscle; E11.51 Type 2 diabetes mellitus with diabetic peripheral angiopathy without gangrene; I10 Essential (primary) hypertension; I25.10 Atherosclerotic heart disease of native coronary artery without angina pectoris; Z86.73 Personal history of transient ischemic attack (TIA), and cerebral infarction without residual deficits; Z87.891 Personal history of nicotine dependence | CPT/HCPCS: 82962; G0277; 99183 ==

== ENCOUNTER 2018-11-24 12:10 | Outpatient (CLI) | payer MEDICARE | END 2018-11-24 12:11 | disposition home or self-care (01) | LOC: WOUND 12:10 | PROVIDERS: ATTEND Surgery | DX: E11.621 Type 2 diabetes mellitus with foot ulcer (principal); L97.423 Non-pressure chronic ulcer of left heel and midfoot with necrosis of muscle; L97.521 Non-pressure chronic ulcer of other part of left foot limited to breakdown of skin; E11.51 Type 2 diabetes mellitus with diabetic peripheral angiopathy without gangrene; I10 Essential (primary) hypertension; I25.10 Atherosclerotic heart disease of native coronary artery without angina pectoris; Z86.73 Personal history of transient ischemic attack (TIA), and cerebral infarction without residual deficits; Z87.891 Personal history of nicotine dependence | CPT/HCPCS: 82962; 97605; G0277; 99183 ==

== ENCOUNTER 2018-11-25 09:43 | Outpatient (CLI) | payer MEDICARE | END 2018-11-25 09:44 | disposition home or self-care (01) | LOC: WOUND 09:43 | PROVIDERS: ATTEND Surgery | DX: E11.621 Type 2 diabetes mellitus with foot ulcer (principal); L97.423 Non-pressure chronic ulcer of left heel and midfoot with necrosis of muscle; E11.51 Type 2 diabetes mellitus with diabetic peripheral angiopathy without gangrene; I10 Essential (primary) hypertension; I25.10 Atherosclerotic heart disease of native coronary artery without angina pectoris; Z86.73 Personal history of transient ischemic attack (TIA), and cerebral infarction without residual deficits; Z87.891 Personal history of nicotine dependence | CPT/HCPCS: 82962; G0277; 99183 ==

== ENCOUNTER 2018-11-26 09:41 | Outpatient (CLI) | payer MEDICARE | END 2018-11-26 09:42 | disposition home or self-care (01) | LOC: WOUND 09:41 | PROVIDERS: ATTEND Surgery | DX: E11.621 Type 2 diabetes mellitus with foot ulcer (principal); L97.423 Non-pressure chronic ulcer of left heel and midfoot with necrosis of muscle; E11.51 Type 2 diabetes mellitus with diabetic peripheral angiopathy without gangrene; I10 Essential (primary) hypertension; I25.10 Atherosclerotic heart disease of native coronary artery without angina pectoris; Z86.73 Personal history of transient ischemic attack (TIA), and cerebral infarction without residual deficits; Z87.891 Personal history of nicotine dependence | CPT/HCPCS: 11043; 82962; 97605; G0277; 99183 ==

== ENCOUNTER 2018-11-27 10:05 | Outpatient (CLI) | payer MEDICARE | END 2018-11-27 10:06 | disposition home or self-care (01) | LOC: WOUND 10:05 | PROVIDERS: ATTEND Surgery | DX: E11.621 Type 2 diabetes mellitus with foot ulcer (principal); L97.423 Non-pressure chronic ulcer of left heel and midfoot with necrosis of muscle; E11.51 Type 2 diabetes mellitus with diabetic peripheral angiopathy without gangrene; I10 Essential (primary) hypertension; I25.10 Atherosclerotic heart disease of native coronary artery without angina pectoris; Z86.73 Personal history of transient ischemic attack (TIA), and cerebral infarction without residual deficits; Z87.891 Personal history of nicotine dependence | CPT/HCPCS: 82962; G0277; 99183 ==

== ENCOUNTER 2018-11-30 09:58 | Outpatient (CLI) | payer MEDICARE | END 2018-11-30 09:59 | disposition home or self-care (01) | LOC: WOUND 09:58 | PROVIDERS: ATTEND Surgery | DX: E11.621 Type 2 diabetes mellitus with foot ulcer (principal); L97.423 Non-pressure chronic ulcer of left heel and midfoot with necrosis of muscle; E11.51 Type 2 diabetes mellitus with diabetic peripheral angiopathy without gangrene; I10 Essential (primary) hypertension; I25.10 Atherosclerotic heart disease of native coronary artery without angina pectoris; Z86.73 Personal history of transient ischemic attack (TIA), and cerebral infarction without residual deficits; Z87.891 Personal history of nicotine dependence | CPT/HCPCS: 82962; 99183; G0277 ==

== ENCOUNTER 2018-12-01 10:45 | Outpatient (CLI) | payer MEDICARE | END 2018-12-01 10:46 | disposition home or self-care (01) | LOC: WOUND 10:45 | PROVIDERS: ATTEND Surgery | DX: E11.621 Type 2 diabetes mellitus with foot ulcer (principal); L97.423 Non-pressure chronic ulcer of left heel and midfoot with necrosis of muscle; E11.51 Type 2 diabetes mellitus with diabetic peripheral angiopathy without gangrene; I10 Essential (primary) hypertension; I25.10 Atherosclerotic heart disease of native coronary artery without angina pectoris; Z86.73 Personal history of transient ischemic attack (TIA), and cerebral infarction without residual deficits; Z87.891 Personal history of nicotine dependence | CPT/HCPCS: 97605; G0277; 82962; 99183 ==

== ENCOUNTER 2018-12-02 10:18 | Outpatient (CLI) | payer MEDICARE | END 2018-12-02 10:19 | disposition home or self-care (01) | LOC: WOUND 10:18 | PROVIDERS: ATTEND Surgery | DX: E11.621 Type 2 diabetes mellitus with foot ulcer (principal); L97.423 Non-pressure chronic ulcer of left heel and midfoot with necrosis of muscle; E11.51 Type 2 diabetes mellitus with diabetic peripheral angiopathy without gangrene; I10 Essential (primary) hypertension; I25.10 Atherosclerotic heart disease of native coronary artery without angina pectoris; Z86.73 Personal history of transient ischemic attack (TIA), and cerebral infarction without residual deficits; Z87.891 Personal history of nicotine dependence | CPT/HCPCS: 82962; G0277; 99183 ==

== ENCOUNTER 2018-12-03 09:51 | Outpatient (CLI) | payer MEDICARE | END 2018-12-03 09:52 | disposition home or self-care (01) | LOC: WOUND 09:51 | PROVIDERS: ATTEND Surgery | DX: E11.621 Type 2 diabetes mellitus with foot ulcer (principal); L97.423 Non-pressure chronic ulcer of left heel and midfoot with necrosis of muscle; E11.51 Type 2 diabetes mellitus with diabetic peripheral angiopathy without gangrene; I10 Essential (primary) hypertension; I25.10 Atherosclerotic heart disease of native coronary artery without angina pectoris; Z86.73 Personal history of transient ischemic attack (TIA), and cerebral infarction without residual deficits; Z87.891 Personal history of nicotine dependence | CPT/HCPCS: 11042; 11043; 82962; 97605; G0277; 99183 ==

== ENCOUNTER 2018-12-04 09:49 | Outpatient (CLI) | payer MEDICARE | END 2018-12-04 09:50 | disposition home or self-care (01) | LOC: WOUND 09:49 | PROVIDERS: ATTEND Surgery | DX: E11.621 Type 2 diabetes mellitus with foot ulcer (principal); L97.423 Non-pressure chronic ulcer of left heel and midfoot with necrosis of muscle; E11.51 Type 2 diabetes mellitus with diabetic peripheral angiopathy without gangrene; I10 Essential (primary) hypertension; I25.10 Atherosclerotic heart disease of native coronary artery without angina pectoris; Z86.73 Personal history of transient ischemic attack (TIA), and cerebral infarction without residual deficits | CPT/HCPCS: 82962; G0277; 99183 ==

== ENCOUNTER 2018-12-07 09:39 | Outpatient (CLI) | payer MEDICARE | END 2018-12-07 09:40 | disposition home or self-care (01) | LOC: WOUND 09:39 | PROVIDERS: ATTEND Surgery | DX: E11.621 Type 2 diabetes mellitus with foot ulcer (principal); L97.423 Non-pressure chronic ulcer of left heel and midfoot with necrosis of muscle; E11.51 Type 2 diabetes mellitus with diabetic peripheral angiopathy without gangrene; I10 Essential (primary) hypertension; I25.10 Atherosclerotic heart disease of native coronary artery without angina pectoris; Z86.73 Personal history of transient ischemic attack (TIA), and cerebral infarction without residual deficits; Z87.891 Personal history of nicotine dependence | CPT/HCPCS: 82962; G0277; 99183 ==

== ENCOUNTER 2018-12-08 10:19 | Outpatient (CLI) | payer MEDICARE | END 2018-12-08 10:20 | disposition home or self-care (01) | LOC: WOUND 10:19 | PROVIDERS: ATTEND Surgery | DX: E11.621 Type 2 diabetes mellitus with foot ulcer (principal); L97.423 Non-pressure chronic ulcer of left heel and midfoot with necrosis of muscle; E11.51 Type 2 diabetes mellitus with diabetic peripheral angiopathy without gangrene; I10 Essential (primary) hypertension; I25.10 Atherosclerotic heart disease of native coronary artery without angina pectoris; Z86.73 Personal history of transient ischemic attack (TIA), and cerebral infarction without residual deficits; Z87.891 Personal history of nicotine dependence | CPT/HCPCS: 82962; 97605; 99183; G0277 ==

== ENCOUNTER 2018-12-09 10:14 | Outpatient (CLI) | payer MEDICARE | END 2018-12-09 10:15 | disposition home or self-care (01) | LOC: WOUND 10:14 | PROVIDERS: ATTEND Surgery | DX: E11.621 Type 2 diabetes mellitus with foot ulcer (principal); L97.423 Non-pressure chronic ulcer of left heel and midfoot with necrosis of muscle; E11.51 Type 2 diabetes mellitus with diabetic peripheral angiopathy without gangrene; I10 Essential (primary) hypertension; I25.10 Atherosclerotic heart disease of native coronary artery without angina pectoris; Z86.73 Personal history of transient ischemic attack (TIA), and cerebral infarction without residual deficits; Z87.891 Personal history of nicotine dependence | CPT/HCPCS: 82962; 99183; G0277 ==

== ENCOUNTER 2018-12-10 09:41 | Outpatient (CLI) | payer MEDICARE | END 2018-12-10 09:42 | disposition home or self-care (01) | LOC: WOUND 09:41 | PROVIDERS: ATTEND Surgery | DX: E11.621 Type 2 diabetes mellitus with foot ulcer (principal); L97.423 Non-pressure chronic ulcer of left heel and midfoot with necrosis of muscle; E11.51 Type 2 diabetes mellitus with diabetic peripheral angiopathy without gangrene; I10 Essential (primary) hypertension; I25.10 Atherosclerotic heart disease of native coronary artery without angina pectoris; Z86.73 Personal history of transient ischemic attack (TIA), and cerebral infarction without residual deficits; Z87.891 Personal history of nicotine dependence | CPT/HCPCS: 11043; 11044; 11047; 97605; G0277; 82962; 99183 ==

== ENCOUNTER 2018-12-11 09:40 | Outpatient (CLI) | payer MEDICARE | END 2018-12-11 09:41 | disposition home or self-care (01) | LOC: WOUND 09:40 | PROVIDERS: ATTEND Surgery | DX: E11.621 Type 2 diabetes mellitus with foot ulcer (principal); L97.423 Non-pressure chronic ulcer of left heel and midfoot with necrosis of muscle; E11.51 Type 2 diabetes mellitus with diabetic peripheral angiopathy without gangrene; I10 Essential (primary) hypertension; I25.10 Atherosclerotic heart disease of native coronary artery without angina pectoris; Z86.73 Personal history of transient ischemic attack (TIA), and cerebral infarction without residual deficits; Z87.891 Personal history of nicotine dependence | CPT/HCPCS: 99183; G0277 ==

== ENCOUNTER 2018-12-14 10:03 | Outpatient (CLI) | payer MEDICARE | END 2018-12-14 10:04 | disposition home or self-care (01) | LOC: WOUND 10:03 | PROVIDERS: ATTEND Surgery | DX: E11.621 Type 2 diabetes mellitus with foot ulcer (principal); L97.526 Non-pressure chronic ulcer of other part of left foot with bone involvement without evidence of necrosis; L97.423 Non-pressure chronic ulcer of left heel and midfoot with necrosis of muscle; E11.51 Type 2 diabetes mellitus with diabetic peripheral angiopathy without gangrene; I10 Essential (primary) hypertension; I25.10 Atherosclerotic heart disease of native coronary artery without angina pectoris; Z86.73 Personal history of transient ischemic attack (TIA), and cerebral infarction without residual deficits; Z87.891 Personal history of nicotine dependence | CPT/HCPCS: 82962; 97605; G0277; 99183 ==

== ENCOUNTER 2018-12-15 09:38 | Outpatient (CLI) | payer MEDICARE | END 2018-12-15 09:39 | disposition home or self-care (01) | LOC: WOUND 09:38 | PROVIDERS: ATTEND Surgery | DX: E11.621 Type 2 diabetes mellitus with foot ulcer (principal); L97.423 Non-pressure chronic ulcer of left heel and midfoot with necrosis of muscle; E11.51 Type 2 diabetes mellitus with diabetic peripheral angiopathy without gangrene; I10 Essential (primary) hypertension; I25.10 Atherosclerotic heart disease of native coronary artery without angina pectoris; Z86.73 Personal history of transient ischemic attack (TIA), and cerebral infarction without residual deficits; Z87.891 Personal history of nicotine dependence | CPT/HCPCS: 82962 ==

== ENCOUNTER 2018-12-15 10:08 | Emergency (ER) | payer MEDICARE ==
[2018-12-15] MEDS ORDERED: ONDANSETRON 4 MG/2 ML INJ IV ONE (10:50)
--- NOTE | 2018-12-15 11:49 | Cat Scan Report ---
CT head without contrast HISTORY: altered mental status. TECHNIQUE: Axial imaging performed from the skull apex through the skull base without the use of con trast. All CT scans at this location are performed using CT dose reduction for ALARA by means of aut omated exposure control. COMPARISON: CT head from 10/29/2018 FINDINGS: Parenchyma: No acute intracranial hemorrhage or parenchymal abnormality. Ventricles: There is mild diffuse brain atrophy with commensurate ventricular enlargement which is l ikely age appropriate. Soft tissues: Soft tissues including the orbits appear normal. Bones: No acute osseous abnormality. Sinuses: Sinuses and mastoid air cells are clear. IMPRESSION: No acute abnormality. Signer Name: Michael Ortega MD Signed: 12/15/2018 11:44 AM Workstation Name: [id number]
--- NOTE | 2018-12-15 12:05 | XRay Report ---
CHEST 1 VIEW 12/15/2018 11:41 AM INDICATION / CLINICAL INFORMATION: Chest Pain. COMPARISON: CTA chest on 10/30/2018. FINDINGS: SUPPORT DEVICES: None. HEART / MEDIASTINUM: Normal heart size. Atherosclerosis in the thoracic aorta. LUNGS / PLEURA: No significant pulmonary or pleural abnormality. No pneumothorax. ADDITIONAL FINDINGS: No significant additional findings. IMPRESSION: 1. No acute findings. No adverse change from the prior exam. Signer Name: Gamal Martins MD Signed: 12/15/2018 12:00 PM Workstation Name: [id number]
[2018-12-15 12:07] LABS: Basophils # (Auto) 0.1 K/mm3 (0.0-0.1); Basophils % (Auto) 1.1 % (0.0-1.8); Eosinophils # (Auto) 0.1 K/mm3 (0.0-0.4); Eosinophils % (Auto) 1.4 % (0.0-4.3); Hematocrit 30.7 % (35.5-45.6); Hemoglobin 10.2 gm/dl (11.8-15.2); Lymphocytes # (Auto) 1.9 K/mm3 (1.2-5.4); Lymphocytes % (Auto) 21.5 % (13.4-35.0); Mean Corpuscular HGB Conc 33 % (32-34); Mean Corpuscular Volume 88 fl (84-94); Monocytes # (Auto) 0.8 K/mm3 (0.0-0.8); Monocytes % (Auto) 8.4 % (0.0-7.3); Platelet Count 187 K/mm3 (140-440); Red Blood Count 3.48 M/mm3 (3.65-5.03); Red Cell Distribution Width 14.4 % (13.2-15.2)
[2018-12-15 12:21] LABS: INR 1.13 (0.87-1.13); Partial Thromboplastin Time 30.2 Sec. (24.2-36.6)
[2018-12-15 12:31] LABS: Alanine Aminotransferase 14 units/L (7-56); Albumin 2.8 g/dL (3.9-5); BUN/Creatinine Ratio 16; Blood Urea Nitrogen 19 mg/dL (9-20); Calcium 8.2 mg/dL (8.4-10.2); Hemolysis Index 7
[2018-12-15 12:35] LABS: Bilirubin,Direct < 0.2 mg/dL (0-0.2)
--- NOTE | 2018-12-15 13:27 | Emergency Department Report ---
ED General Adult HPI - General Chief complaint: Altered Mental Status Stated complaint: UNRESPONSIVE/BP 90/56 Time Seen by Provider: 12/15/18 10:47 Source: patient Mode of arrival: Stretcher Limitations: No Limitations - History of Present Illness Initial comments: 88-year-old man who was thought to be poorly responsive at the [facility]. He was brought to the emergency department for evaluation. Later on we found out that the had given him he Zanaflex. The did not present with the patient initially. By the time the presented she gave the above history stating that this has happened before after Zanaflex. She also states the patient has returned to his baseline mental status. At the time of my evaluation before the arrived the patient was responsive. He was verbally coherent. He is quite hard of hearing but answers appropriately all of my questions. -: Gradual Improves with: none Worsens with: none - Related Data Previous Rx's Medication Instructions Recorded Last Taken Type Al Oakley 24,000 Units Capsule 24,000 units PO TID #90 10/20/18 10/28/18 Rx oxyCODONE /ACETAMINOPHEN [Percocet 2 tab PO Q6H PRN #30 tablet 10/20/18 10/26/18 Rx 5/325 mg] Aspirin [Aspirin BABY CHEW TAB] 81 mg PO QHS #40 tab.chew 11/01/18 Unknown Rx FLUoxetine [PROzac] 40 mg PO QDAY #30 capsule 11/01/18 Unknown Rx Gabapentin 600 mg PO HS #30 capsule 11/01/18 Unknown Rx Insulin Glargine,Hum.rec.anlog 40 units SQ QAM #5 insuln.pen 11/01/18 Unknown Rx [Toujeo Solostar] Levothyroxine [Synthroid] 100 mcg PO QAM #100 tablet 11/01/18 Unknown Rx Lisinopril [Zestril TAB] 5 mg PO QHS #30 tablet 11/01/18 Unknown Rx Memantine 10 mg PO BID #60 tablet 11/01/18 Unknown Rx Memantine 10 mg PO Q12HR #60 tablet 11/01/18 Unknown Rx Pantoprazole [Protonix TAB] 40 mg PO QDAY #30 tablet 11/01/18 Unknown Rx Pravastatin [Pravachol] 80 mg PO QHS #30 tablet 11/01/18 Unknown Rx Tamsulosin [Flomax] 0.4 mg PO QHS #30 capsule 11/01/18 Unknown Rx levoFLOXacin [Levaquin TAB] 750 mg PO QDAY #10 tab 11/01/18 Unknown Rx tiZANidine [Zanaflex 4mg TAB] 4 mg PO QHS #30 tablet 11/01/18 Unknown Rx Allergies Allergy/AdvReac Type Severity Reaction Status Date / Time No Known Allergies Allergy Unverified 10/14/18 21:13 ED Review of Systems ROS: Stated complaint: UNRESPONSIVE/BP 90/56 Other details as noted in HPI Constitutional: denies: chills, fever Eyes: denies: eye pain, eye discharge, vision change ENT: denies: ear pain, throat pain Respiratory: denies: cough, shortness of breath Cardiovascular: denies: chest pain, orthopnea Endocrine: no symptoms reported Gastrointestinal: denies: abdominal pain, nausea, diarrhea Genitourinary: denies: urgency, dysuria Musculoskeletal: denies: back pain, joint swelling Skin: denies: rash, lesions Neurological: denies: headache, weakness, paresthesias Psychiatric: denies: anxiety, depression Hematological/Lymphatic: denies: easy bleeding, easy bruising ED Past Medical Hx - Past Medical History Hx Hypertension: Yes Hx CVA: Yes Hx Diabetes: Yes Hx Arthritis: Yes Hx Dementia: Yes - Surgical History Hx Cholecystectomy: Yes - Social History Smoking Status: Former Smoker - Medications Home Medications: Home Medications Medication Instructions Recorded Confirmed Last Taken Type Al Oakley 24,000 Units Capsule 24,000 units PO TID #90 10/20/18 10/29/18 10/28/18 Rx oxyCODONE /ACETAMINOPHEN [Percocet 2 tab PO Q6H PRN #30 tablet 10/20/18 10/29/18 10/26/18 Rx 5/325 mg] Aspirin [Aspirin BABY CHEW TAB] 81 mg PO QHS #40 tab.chew 11/01/18 Unknown Rx FLUoxetine [PROzac] 40 mg PO QDAY #30 capsule 11/01/18 Unknown Rx Gabapentin 600 mg PO HS #30 capsule 11/01/18 Unknown Rx Insulin Glargine,Hum.rec.anlog 40 units SQ QAM #5 insuln.pen 11/01/18 Unknown Rx [Toujeo Solostar] Levothyroxine [Synthroid] 100 mcg PO QAM #100 tablet 11/01/18 Unknown Rx Lisinopril [Zestril TAB] 5 mg PO QHS #30 tablet 11/01/18 Unknown Rx Memantine 10 mg PO BID #60 tablet 11/01/18 Unknown Rx Memantine 10 mg PO Q12HR #60 tablet 11/01/18 Unknown Rx Pantoprazole [Protonix TAB] 40 mg PO QDAY #30 tablet 11/01/18 Unknown Rx Pravastatin [Pravachol] 80 mg PO QHS #30 tablet 11/01/18 Unknown Rx Tamsulosin [Flomax] 0.4 mg PO QHS #30 capsule 11/01/18 Unknown Rx levoFLOXacin [Levaquin TAB] 750 mg PO QDAY #10 tab 11/01/18 Unknown Rx tiZANidine [Zanaflex 4mg TAB] 4 mg PO QHS #30 tablet 11/01/18 Unknown Rx ED Physical Exam - General Limitations: No Limitations General appearance: alert, in no apparent distress - Head Head exam: Present: atraumatic, normocephalic - Eye Eye exam: Present: normal appearance - ENT ENT exam: Present: mucous membranes moist - Neck Neck exam: Present: normal inspection - Respiratory Respiratory exam: Present: normal lung sounds bilaterally. Absent: respiratory distress - Cardiovascular Cardiovascular Exam: Present: regular rate, normal rhythm. Absent: systolic murmur, diastolic murmur, rubs, gallop - GI/Abdominal GI/Abdominal exam: Present: soft, normal bowel sounds. Absent: distended, tenderness, guarding, rebound - Rectal Rectal exam: Present: deferred - Extremities Exam Extremities exam: Present: other (wound VAC and dressed left foot. No apparent signs of ascending infection.) - Back Exam Back exam: Present: normal inspection - Neurological Exam Neurological exam: Present: alert, oriented X3, CN II-XII intact. Absent: motor sensory deficit - Psychiatric Psychiatric exam: Present: normal affect, normal mood - Skin Skin exam: Present: warm, dry, intact, normal color. Absent: rash ED Course Vital Signs 12/15/18 10:47 Temperature 97.8 F ED Medical Decision Making - Lab Data Result diagrams: 12/15/18 11:38 12/15/18 11:38 Laboratory Results - last 24 hr 12/15/18 12/15/18 12/15/18 11:17 11:38 11:38 WBC 9.0 RBC 3.48 L Hgb 10.2 L Hct 30.7 L MCV 88 MCH 29 MCHC 33 RDW 14.4 Plt Count 187 Lymph % (Auto) 21.5 [place] % (Auto) 8.4 H Eos % (Auto) 1.4 Baso % (Auto) 1.1 Lymph # 1.9 [place] # 0.8 Eos # 0.1 Baso # 0.1 Seg Neutrophils % 67.6 Seg Neutrophils # 6.1 PT INR APTT Sodium Potassium Chloride Carbon Dioxide Anion Gap BUN Creatinine Estimated GFR BUN/Creatinine Ratio Glucose POC Glucose 128 H Lactic Acid Calcium Total Bilirubin Direct Bilirubin Indirect Bilirubin AST ALT Alkaline Phosphatase Ammonia Total Creatine Kinase Troponin T 0.020 Total Protein Albumin Albumin/Globulin Ratio TSH 12/15/18 12/15/18 12/15/18 11:38 11:38 11:38 WBC RBC Hgb Hct MCV MCH MCHC RDW Plt Count Lymph % (Auto) [place] % (Auto) Eos % (Auto) Baso % (Auto) Lymph # [place] # Eos # Baso # Seg Neutrophils % Seg Neutrophils # PT 14.4 INR 1.13 APTT 30.2 Sodium 138 Potassium 3.9 Chloride 103.0 Carbon Dioxide 21 L Anion Gap 18 BUN 19 Creatinine 1.2 Estimated GFR 57 BUN/Creatinine Ratio 16 Glucose 122 H POC Glucose Lactic Acid 1.30 Calcium 8.2 L Total Bilirubin 0.20 Direct Bilirubin < 0.2 Indirect Bilirubin 0.0 AST 20 ALT 14 Alkaline Phosphatase 79 Ammonia Total Creatine Kinase Troponin T Total Protein 7.2 Albumin 2.8 L Albumin/Globulin Ratio 0.6 TSH 12/15/18 12/15/18 12/15/18 11:38 11:38 11:38 WBC RBC Hgb Hct MCV MCH MCHC RDW Plt Count Lymph % (Auto) [place] % (Auto) Eos % (Auto) Baso % (Auto) Lymph # [place] # Eos # Baso # Seg Neutrophils % Seg Neutrophils # PT INR APTT Sodium Potassium Chloride Carbon Dioxide Anion Gap BUN Creatinine Estimated GFR BUN/Creatinine Ratio Glucose POC Glucose Lactic Acid Calcium Total Bilirubin Direct Bilirubin Indirect Bilirubin AST ALT Alkaline Phosphatase Ammonia 29.0 Total Creatine Kinase 46 L Troponin T Total Protein Albumin Albumin/Globulin Ratio TSH 1.690 - EKG Data -: EKG Interpreted by Vt EKG shows normal: sinus rhythm Rate: normal - EKG Data Interpretation: other (poor R-wave progression left anterior fascicular block consider old anterior zone) - Radiology Data Radiology results: report reviewed (chest x-ray and CT head no acute process) Critical care attestation.: If time is entered above; I have spent that time in minutes in the direct care of this critically ill patient, excluding procedure time. ED Disposition Clinical Impression: Transient alteration of awareness Adverse effects of medication Qualifiers: Encounter type: initial encounter Qualified Code(s): T50.905A - Adverse effect of unspecified drugs, medicaments and biological substances, initial encounter Disposition: DC-01 TO HOME OR SELFCARE Is pt being admited?: No Does the pt Need Aspirin: No Condition: Stable Instructions: Altered Mental Status (ED) Additional Instructions: I do not recommend any further use of Zanaflex. Further care with your primary care providers and consultants. Return to the emergency department any acute change or problem. Time of Disposition: 13:40
[2018-12-15 14:09] VITALS: BP 123/48
== END 2018-12-15 14:09 | disposition home or self-care (01) ==
LOC: ED 10:08
DX: T50.995A Adverse effect of other drugs, medicaments and biological substances, initial encounter (principal); I10 Essential (primary) hypertension; E11.9 Type 2 diabetes mellitus without complications; Z86.73 Personal history of transient ischemic attack (TIA), and cerebral infarction without residual deficits; F03.90 Unspecified dementia, unspecified severity, without behavioral disturbance, psychotic disturbance, mood disturbance, and anxiety; Z90.49 Acquired absence of other specified parts of digestive tract; Z87.891 Personal history of nicotine dependence; Z79.4 Long term (current) use of insulin; Y92.89 Other specified places as the place of occurrence of the external cause
CPT/HCPCS: 36415; 70450; 71045; 80048; 80076; 82140; 82550; 82962; 84443; 84484; 85025; 85610; 85730; 93005; 93010; 96374

== ENCOUNTER 2018-12-16 10:03 | Outpatient (CLI) | payer MEDICARE | END 2018-12-16 10:04 | disposition home or self-care (01) | LOC: WOUND 10:03 | PROVIDERS: ATTEND Surgery | DX: E11.621 Type 2 diabetes mellitus with foot ulcer (principal); L97.423 Non-pressure chronic ulcer of left heel and midfoot with necrosis of muscle; E11.51 Type 2 diabetes mellitus with diabetic peripheral angiopathy without gangrene; I10 Essential (primary) hypertension; I25.10 Atherosclerotic heart disease of native coronary artery without angina pectoris; Z86.73 Personal history of transient ischemic attack (TIA), and cerebral infarction without residual deficits; Z87.891 Personal history of nicotine dependence | CPT/HCPCS: 82962; 99183; G0277 ==

== ENCOUNTER 2018-12-17 08:46 | Outpatient (CLI) | payer MEDICARE | END 2018-12-17 08:47 | disposition home or self-care (01) | LOC: WOUND 08:46 | PROVIDERS: ATTEND Surgery | DX: E11.621 Type 2 diabetes mellitus with foot ulcer (principal); L97.423 Non-pressure chronic ulcer of left heel and midfoot with necrosis of muscle; E11.51 Type 2 diabetes mellitus with diabetic peripheral angiopathy without gangrene; I10 Essential (primary) hypertension; I25.10 Atherosclerotic heart disease of native coronary artery without angina pectoris; Z86.73 Personal history of transient ischemic attack (TIA), and cerebral infarction without residual deficits; Z87.891 Personal history of nicotine dependence | CPT/HCPCS: 11043; 11044; 82962; G0277; 99183 ==

== ENCOUNTER 2018-12-24 09:53 | Day surgery (SDC) | payer MEDICARE ==
--- NOTE | 2018-12-24 12:13 | Anesthesia Day of Surgery ---
Anesthesia Day of Surgery - Day of Surgery Patient Examined: Yes Patient H&P Reviewed: Yes Patient is NPO: Yes
--- NOTE | 2018-12-24 12:13 | Anesthesia Consultation ---
Anesthesia Consult and Med Hx Date of service: 12/24/18 - Airway Anesthetic Teeth Evaluation: Dentures ROM Head & Neck: Adequate Mental/Hyoid Distance: Adequate Mallampati Class: Class II Intubation Access Assessment: Good - Pulmonary Exam CTA: Yes - Cardiac Exam Cardiac Exam: RRR - Pre-Operative Health Status ASA Pre-Surgery Classification: ASA4 Proposed Anesthetic Plan: General (CVA, HTN, DM, hypothyroid, high chl) - Pulmonary Hx Smoking: Yes (FORMER FOR ABOUT 60 YRS; QUIT 1991) - Cardiovascular System Hx Hypertension: Yes (RESOLVED, UNSURE WHEN PRIMARY DIAGNOSES OCCURED) Hx Coronary Artery Disease: Yes (S/P Angioplasty) Hx Peripheral Vascular Disease: Yes - Central Nervous System 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
[2018-12-24] MEDS ORDERED: SODIUM CHLORIDE 0.9% 1000 ML 1,000 ML IV SCH (13:00)
[2018-12-24] MEDS ORDERED: LIDOCAINE MPF (2%) 20 MG/1 ML VIAL 5 ML ONE (13:20)
[2018-12-24] MEDS ORDERED: fentaNYL 100 MCG/2 ML INJ ONE (13:21)
[2018-12-24] MEDS ORDERED: PROPOFOL 200 MG/20 ML VIAL IV ONE (13:21)
[2018-12-24] MEDS ORDERED: GLYCOPYRROLATE 0.4 MG/2 ML INJ ONE (14:05)
[2018-12-24] MEDS ORDERED: PHENYLEPHRINE/NS 1,000 MCG/10 ML SYRINGE (OR USE) IV ONE (14:10)
[2018-12-24] MEDS ORDERED: SODIUM CHLORIDE 0.9% IRR 1,500 ML BOTTLE IR ONE (14:23)
--- NOTE | 2018-12-24 15:26 | Post Operative Note ---
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
--- NOTE | 2018-12-24 16:09 | Procedure Note ---
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 General anesthesia was administered by LMA. Left foot was prepped and draped. The 2nd through 5th toes were excised through the MTP joints with the Bovie. During this excision a medial and a lateral abscess were encountered and these were individually cultured. Hemostasis was obtained with the Bovie. The 1st through 5th metatarsal shafts/heads were freed up with a periosteal elevator and these were amputated with a bone saw. Tendons were maximally retracted and trans ected. Additional necrotic soft tissue was excised. Wound was irrigated. The plantar flap was approximated to the dorsal flap with a single suture of 3-0 Nylon. The wound was then packed open with a dilute Betadine moistened Kerlix roll followed by a dry Kerlix roll and Coban. Pt tolerated the procedure well. He was taken to PACU in stable condition. Anesthesia: other (LMA) Surgeon: MARILEE BENITEZ Estimated blood loss: 50-100ml Pathology: list (1) 2nd - 5th toes 2) 1st - 5th metatarsal shafts/heads 3) C&S of medial and lateral deep abscesses) Specimen disposition: to lab Condition: stable Disposition: PACU
[2018-12-24 17:05] VITALS: BP 127/52
== END 2018-12-24 09:54 | disposition home or self-care (01) ==
LOC: OR 09:53
PROVIDERS: ATTEND Surgery
DX: E11.69 Type 2 diabetes mellitus with other specified complication (principal); M86.8X8 Other osteomyelitis, other site; E11.621 Type 2 diabetes mellitus with foot ulcer; L97.523 Non-pressure chronic ulcer of other part of left foot with necrosis of muscle; E03.9 Hypothyroidism, unspecified; I10 Essential (primary) hypertension; F03.90 Unspecified dementia, unspecified severity, without behavioral disturbance, psychotic disturbance, mood disturbance, and anxiety; E78.5 Hyperlipidemia, unspecified; E11.42 Type 2 diabetes mellitus with diabetic polyneuropathy; G62.9 Polyneuropathy, unspecified; I25.10 Atherosclerotic heart disease of native coronary artery without angina pectoris; E11.51 Type 2 diabetes mellitus with diabetic peripheral angiopathy without gangrene; I73.9 Peripheral vascular disease, unspecified; E78.00 Pure hypercholesterolemia, unspecified; K21.9 Gastro-esophageal reflux disease without esophagitis; M19.90 Unspecified osteoarthritis, unspecified site; F32.9 Major depressive disorder, single episode, unspecified; Z87.442 Personal history of urinary calculi; Z98.890 Other specified postprocedural states; Z79.899 Other long term (current) drug therapy; Z88.5 Allergy status to narcotic agent; Z79.82 Long term (current) use of aspirin; Z90.49 Acquired absence of other specified parts of digestive tract; Z79.4 Long term (current) use of insulin; Z87.891 Personal history of nicotine dependence; Z98.41 Cataract extraction status, right eye; Z98.42 Cataract extraction status, left eye; Z86.73 Personal history of transient ischemic attack (TIA), and cerebral infarction without residual deficits; Z88.8 Allergy status to other drugs, medicaments and biological substances
CPT/HCPCS: 28805; 82962; 87075; 87076; 87116; 87186; 88304; 88305; 88311; J2370; J2704; J3010; J7030

== ENCOUNTER 2018-12-25 13:58 | Outpatient (CLI) | payer MEDICARE | END 2018-12-25 13:59 | disposition home or self-care (01) | LOC: WOUND 13:58 | PROVIDERS: ATTEND Surgery | DX: T87.89 Other complications of amputation stump (principal); E11.51 Type 2 diabetes mellitus with diabetic peripheral angiopathy without gangrene; I10 Essential (primary) hypertension; I25.10 Atherosclerotic heart disease of native coronary artery without angina pectoris; Z86.73 Personal history of transient ischemic attack (TIA), and cerebral infarction without residual deficits; Z87.891 Personal history of nicotine dependence; Y83.5 Amputation of limb(s) as the cause of abnormal reaction of the patient, or of later complication, without mention of misadventure at the time of the procedure; Y92.89 Other specified places as the place of occurrence of the external cause | CPT/HCPCS: 99214; G0463 ==

== ENCOUNTER 2018-12-29 10:39 | Outpatient (CLI) | payer MEDICARE | END 2018-12-29 10:40 | disposition home or self-care (01) | LOC: WOUND 10:39 | PROVIDERS: ATTEND Surgery | DX: T87.89 Other complications of amputation stump (principal); E11.621 Type 2 diabetes mellitus with foot ulcer; L97.423 Non-pressure chronic ulcer of left heel and midfoot with necrosis of muscle; E11.51 Type 2 diabetes mellitus with diabetic peripheral angiopathy without gangrene; I10 Essential (primary) hypertension; I25.10 Atherosclerotic heart disease of native coronary artery without angina pectoris; Z86.73 Personal history of transient ischemic attack (TIA), and cerebral infarction without residual deficits; Z87.891 Personal history of nicotine dependence; Y83.5 Amputation of limb(s) as the cause of abnormal reaction of the patient, or of later complication, without mention of misadventure at the time of the procedure | CPT/HCPCS: 97605 ==

== ENCOUNTER 2019-01-05 10:48 | Outpatient (CLI) | payer MEDICARE | END 2019-01-05 10:49 | disposition home or self-care (01) | LOC: WOUND 10:48 | PROVIDERS: ATTEND Surgery | DX: T87.89 Other complications of amputation stump (principal); E11.621 Type 2 diabetes mellitus with foot ulcer; L97.423 Non-pressure chronic ulcer of left heel and midfoot with necrosis of muscle; E11.51 Type 2 diabetes mellitus with diabetic peripheral angiopathy without gangrene; I10 Essential (primary) hypertension; I25.10 Atherosclerotic heart disease of native coronary artery without angina pectoris; Z86.73 Personal history of transient ischemic attack (TIA), and cerebral infarction without residual deficits; Z87.891 Personal history of nicotine dependence; Y83.5 Amputation of limb(s) as the cause of abnormal reaction of the patient, or of later complication, without mention of misadventure at the time of the procedure | CPT/HCPCS: 97606 ==

== ENCOUNTER 2019-01-12 11:20 | Outpatient (CLI) | payer MEDICARE | END 2019-01-12 11:21 | disposition home or self-care (01) | LOC: WOUND 11:20 | PROVIDERS: ATTEND Surgery | DX: T87.89 Other complications of amputation stump (principal); E11.621 Type 2 diabetes mellitus with foot ulcer; L97.423 Non-pressure chronic ulcer of left heel and midfoot with necrosis of muscle; E11.51 Type 2 diabetes mellitus with diabetic peripheral angiopathy without gangrene; I10 Essential (primary) hypertension; I25.10 Atherosclerotic heart disease of native coronary artery without angina pectoris; Z86.73 Personal history of transient ischemic attack (TIA), and cerebral infarction without residual deficits; Z87.891 Personal history of nicotine dependence; Y83.5 Amputation of limb(s) as the cause of abnormal reaction of the patient, or of later complication, without mention of misadventure at the time of the procedure | CPT/HCPCS: 97606 ==

== ENCOUNTER 2019-01-19 10:05 | Outpatient (CLI) | payer MEDICARE | END 2019-01-19 10:06 | disposition home or self-care (01) | LOC: WOUND 10:05 | PROVIDERS: ATTEND Surgery | DX: T87.89 Other complications of amputation stump (principal); E11.621 Type 2 diabetes mellitus with foot ulcer; L97.423 Non-pressure chronic ulcer of left heel and midfoot with necrosis of muscle; E11.51 Type 2 diabetes mellitus with diabetic peripheral angiopathy without gangrene; I10 Essential (primary) hypertension; I25.10 Atherosclerotic heart disease of native coronary artery without angina pectoris; Z86.73 Personal history of transient ischemic attack (TIA), and cerebral infarction without residual deficits; Z87.891 Personal history of nicotine dependence; Y83.5 Amputation of limb(s) as the cause of abnormal reaction of the patient, or of later complication, without mention of misadventure at the time of the procedure | CPT/HCPCS: 97606 ==

== ENCOUNTER 2019-01-26 10:54 | Outpatient (CLI) | payer MEDICARE | END 2019-01-26 10:55 | disposition home or self-care (01) | LOC: WOUND 10:54 | PROVIDERS: ATTEND Surgery | DX: T87.89 Other complications of amputation stump (principal); E11.621 Type 2 diabetes mellitus with foot ulcer; L97.423 Non-pressure chronic ulcer of left heel and midfoot with necrosis of muscle; E11.51 Type 2 diabetes mellitus with diabetic peripheral angiopathy without gangrene; I10 Essential (primary) hypertension; I25.10 Atherosclerotic heart disease of native coronary artery without angina pectoris; Z86.73 Personal history of transient ischemic attack (TIA), and cerebral infarction without residual deficits; Z87.891 Personal history of nicotine dependence; Y83.5 Amputation of limb(s) as the cause of abnormal reaction of the patient, or of later complication, without mention of misadventure at the time of the procedure | CPT/HCPCS: 97606 ==

== ENCOUNTER 2019-02-02 11:22 | Outpatient (CLI) | payer MEDICARE | END 2019-02-02 11:23 | disposition home or self-care (01) | LOC: WOUND 11:22 | PROVIDERS: ATTEND Surgery | DX: T87.89 Other complications of amputation stump (principal); E11.621 Type 2 diabetes mellitus with foot ulcer; L97.423 Non-pressure chronic ulcer of left heel and midfoot with necrosis of muscle; E11.51 Type 2 diabetes mellitus with diabetic peripheral angiopathy without gangrene; I10 Essential (primary) hypertension; I25.10 Atherosclerotic heart disease of native coronary artery without angina pectoris; Z86.73 Personal history of transient ischemic attack (TIA), and cerebral infarction without residual deficits; Z87.891 Personal history of nicotine dependence; Y83.5 Amputation of limb(s) as the cause of abnormal reaction of the patient, or of later complication, without mention of misadventure at the time of the procedure ==

== ENCOUNTER 2019-02-09 10:35 | Outpatient (CLI) | payer MEDICARE | END 2019-02-09 10:36 | disposition home or self-care (01) | LOC: WOUND 10:35 | PROVIDERS: ATTEND Surgery | DX: T87.89 Other complications of amputation stump (principal); E11.621 Type 2 diabetes mellitus with foot ulcer; L97.423 Non-pressure chronic ulcer of left heel and midfoot with necrosis of muscle; E11.51 Type 2 diabetes mellitus with diabetic peripheral angiopathy without gangrene; I10 Essential (primary) hypertension; I25.10 Atherosclerotic heart disease of native coronary artery without angina pectoris; Z86.73 Personal history of transient ischemic attack (TIA), and cerebral infarction without residual deficits; Z87.891 Personal history of nicotine dependence; Y83.5 Amputation of limb(s) as the cause of abnormal reaction of the patient, or of later complication, without mention of misadventure at the time of the procedure ==

== ENCOUNTER 2019-02-23 10:22 | Outpatient (CLI) | payer MEDICARE | END 2019-02-23 10:23 | disposition home or self-care (01) | LOC: WOUND 10:22 | PROVIDERS: ATTEND Surgery | DX: T87.89 Other complications of amputation stump (principal); E11.621 Type 2 diabetes mellitus with foot ulcer; L97.423 Non-pressure chronic ulcer of left heel and midfoot with necrosis of muscle; E11.51 Type 2 diabetes mellitus with diabetic peripheral angiopathy without gangrene; I10 Essential (primary) hypertension; I25.10 Atherosclerotic heart disease of native coronary artery without angina pectoris; Z86.73 Personal history of transient ischemic attack (TIA), and cerebral infarction without residual deficits; Z87.891 Personal history of nicotine dependence; Y83.5 Amputation of limb(s) as the cause of abnormal reaction of the patient, or of later complication, without mention of misadventure at the time of the procedure ==

== ENCOUNTER 2019-03-02 10:46 | Outpatient (CLI) | payer MEDICARE | END 2019-03-02 10:47 | disposition home or self-care (01) | LOC: WOUND 10:46 | PROVIDERS: ATTEND Surgery | DX: T87.89 Other complications of amputation stump (principal); E11.621 Type 2 diabetes mellitus with foot ulcer; L97.423 Non-pressure chronic ulcer of left heel and midfoot with necrosis of muscle; E11.51 Type 2 diabetes mellitus with diabetic peripheral angiopathy without gangrene; I10 Essential (primary) hypertension; I25.10 Atherosclerotic heart disease of native coronary artery without angina pectoris; Z86.73 Personal history of transient ischemic attack (TIA), and cerebral infarction without residual deficits; Z87.891 Personal history of nicotine dependence; Y83.5 Amputation of limb(s) as the cause of abnormal reaction of the patient, or of later complication, without mention of misadventure at the time of the procedure ==

== ENCOUNTER 2019-03-09 10:15 | Outpatient (CLI) | payer MEDICARE | END 2019-03-09 10:16 | disposition home or self-care (01) | LOC: WOUND 10:15 | PROVIDERS: ATTEND Surgery | DX: T87.89 Other complications of amputation stump (principal); E11.621 Type 2 diabetes mellitus with foot ulcer; L97.423 Non-pressure chronic ulcer of left heel and midfoot with necrosis of muscle; E11.51 Type 2 diabetes mellitus with diabetic peripheral angiopathy without gangrene; I10 Essential (primary) hypertension; I25.10 Atherosclerotic heart disease of native coronary artery without angina pectoris; Z86.73 Personal history of transient ischemic attack (TIA), and cerebral infarction without residual deficits; Z87.891 Personal history of nicotine dependence; Y83.5 Amputation of limb(s) as the cause of abnormal reaction of the patient, or of later complication, without mention of misadventure at the time of the procedure ==

== ENCOUNTER 2019-03-16 10:24 | Outpatient (CLI) | payer MEDICARE | END 2019-03-16 10:25 | disposition home or self-care (01) | LOC: WOUND 10:24 | PROVIDERS: ATTEND Surgery | DX: T87.89 Other complications of amputation stump (principal); E11.621 Type 2 diabetes mellitus with foot ulcer; L97.423 Non-pressure chronic ulcer of left heel and midfoot with necrosis of muscle; E11.51 Type 2 diabetes mellitus with diabetic peripheral angiopathy without gangrene; I10 Essential (primary) hypertension; I25.10 Atherosclerotic heart disease of native coronary artery without angina pectoris; Z86.73 Personal history of transient ischemic attack (TIA), and cerebral infarction without residual deficits; Z87.891 Personal history of nicotine dependence; Y83.5 Amputation of limb(s) as the cause of abnormal reaction of the patient, or of later complication, without mention of misadventure at the time of the procedure ==

== ENCOUNTER 2019-03-23 10:23 | Outpatient (CLI) | payer MEDICARE | END 2019-03-23 10:24 | disposition home or self-care (01) | LOC: WOUND 10:23 | PROVIDERS: ATTEND Surgery | DX: T87.89 Other complications of amputation stump (principal); E11.621 Type 2 diabetes mellitus with foot ulcer; L97.423 Non-pressure chronic ulcer of left heel and midfoot with necrosis of muscle; E11.51 Type 2 diabetes mellitus with diabetic peripheral angiopathy without gangrene; I10 Essential (primary) hypertension; I25.10 Atherosclerotic heart disease of native coronary artery without angina pectoris; Z86.73 Personal history of transient ischemic attack (TIA), and cerebral infarction without residual deficits; Z87.891 Personal history of nicotine dependence; Z96.659 Presence of unspecified artificial knee joint; Y83.5 Amputation of limb(s) as the cause of abnormal reaction of the patient, or of later complication, without mention of misadventure at the time of the procedure ==

== ENCOUNTER 2019-03-30 10:35 | Outpatient (CLI) | payer MEDICARE | END 2019-03-30 10:36 | disposition home or self-care (01) | LOC: WOUND 10:35 | PROVIDERS: ATTEND Surgery | DX: T87.89 Other complications of amputation stump (principal); E11.621 Type 2 diabetes mellitus with foot ulcer; L97.423 Non-pressure chronic ulcer of left heel and midfoot with necrosis of muscle; E11.51 Type 2 diabetes mellitus with diabetic peripheral angiopathy without gangrene; I10 Essential (primary) hypertension; I25.10 Atherosclerotic heart disease of native coronary artery without angina pectoris; Z86.73 Personal history of transient ischemic attack (TIA), and cerebral infarction without residual deficits; Z87.891 Personal history of nicotine dependence; Z96.659 Presence of unspecified artificial knee joint; Y83.5 Amputation of limb(s) as the cause of abnormal reaction of the patient, or of later complication, without mention of misadventure at the time of the procedure ==

== ENCOUNTER 2019-04-06 10:38 | Outpatient (CLI) | payer MEDICARE | END 2019-04-06 10:39 | disposition home or self-care (01) | LOC: WOUND 10:38 | PROVIDERS: ATTEND Surgery | DX: T87.89 Other complications of amputation stump (principal); E11.621 Type 2 diabetes mellitus with foot ulcer; L97.423 Non-pressure chronic ulcer of left heel and midfoot with necrosis of muscle; E11.51 Type 2 diabetes mellitus with diabetic peripheral angiopathy without gangrene; I10 Essential (primary) hypertension; I25.10 Atherosclerotic heart disease of native coronary artery without angina pectoris; Z86.73 Personal history of transient ischemic attack (TIA), and cerebral infarction without residual deficits; Z87.891 Personal history of nicotine dependence; Z96.659 Presence of unspecified artificial knee joint; Y83.5 Amputation of limb(s) as the cause of abnormal reaction of the patient, or of later complication, without mention of misadventure at the time of the procedure ==

== ENCOUNTER 2019-04-13 10:51 | Outpatient (CLI) | payer MEDICARE | END 2019-04-13 10:52 | disposition home or self-care (01) | LOC: WOUND 10:51 | PROVIDERS: ATTEND Surgery | DX: T87.89 Other complications of amputation stump (principal); E11.621 Type 2 diabetes mellitus with foot ulcer; L97.423 Non-pressure chronic ulcer of left heel and midfoot with necrosis of muscle; E11.51 Type 2 diabetes mellitus with diabetic peripheral angiopathy without gangrene; I10 Essential (primary) hypertension; I25.10 Atherosclerotic heart disease of native coronary artery without angina pectoris; Z86.73 Personal history of transient ischemic attack (TIA), and cerebral infarction without residual deficits; Z87.891 Personal history of nicotine dependence; Z96.659 Presence of unspecified artificial knee joint; Y83.5 Amputation of limb(s) as the cause of abnormal reaction of the patient, or of later complication, without mention of misadventure at the time of the procedure ==

== ENCOUNTER 2019-04-20 10:53 | Outpatient (CLI) | payer MEDICARE | END 2019-04-20 10:54 | disposition home or self-care (01) | LOC: WOUND 10:53 | PROVIDERS: ATTEND Surgery | DX: T87.89 Other complications of amputation stump (principal); E11.621 Type 2 diabetes mellitus with foot ulcer; L97.423 Non-pressure chronic ulcer of left heel and midfoot with necrosis of muscle; E11.51 Type 2 diabetes mellitus with diabetic peripheral angiopathy without gangrene; I10 Essential (primary) hypertension; I25.10 Atherosclerotic heart disease of native coronary artery without angina pectoris; Z86.73 Personal history of transient ischemic attack (TIA), and cerebral infarction without residual deficits; Z87.891 Personal history of nicotine dependence; Z96.659 Presence of unspecified artificial knee joint; Y83.5 Amputation of limb(s) as the cause of abnormal reaction of the patient, or of later complication, without mention of misadventure at the time of the procedure ==

== ENCOUNTER 2019-07-21 11:06 | Outpatient (CLI) | payer MEDICARE | END 2019-07-21 11:07 | disposition home or self-care (01) | LOC: WOUND 11:06 | PROVIDERS: ATTEND Surgery | DX: T87.89 Other complications of amputation stump (principal); E11.621 Type 2 diabetes mellitus with foot ulcer; L97.522 Non-pressure chronic ulcer of other part of left foot with fat layer exposed; L97.422 Non-pressure chronic ulcer of left heel and midfoot with fat layer exposed; L97.412 Non-pressure chronic ulcer of right heel and midfoot with fat layer exposed; L97.512 Non-pressure chronic ulcer of other part of right foot with fat layer exposed; E11.51 Type 2 diabetes mellitus with diabetic peripheral angiopathy without gangrene; I10 Essential (primary) hypertension; I25.10 Atherosclerotic heart disease of native coronary artery without angina pectoris; Z86.73 Personal history of transient ischemic attack (TIA), and cerebral infarction without residual deficits; Z96.659 Presence of unspecified artificial knee joint; Z87.891 Personal history of nicotine dependence ==

== ENCOUNTER 2019-08-11 10:50 | Outpatient (CLI) | payer MEDICARE ==
[2019-08-11] MEDS ORDERED: LIDOCAINE (4%) 40 MG/ML TOPICAL SOLN 50 ML BOTTLE TP ONE (11:07)
== END 2019-08-11 10:51 | disposition home or self-care (01) ==
LOC: WOUND 10:50
PROVIDERS: ATTEND Surgery
DX: E11.621 Type 2 diabetes mellitus with foot ulcer (principal); L97.412 Non-pressure chronic ulcer of right heel and midfoot with fat layer exposed; L97.423 Non-pressure chronic ulcer of left heel and midfoot with necrosis of muscle; L97.511 Non-pressure chronic ulcer of other part of right foot limited to breakdown of skin; E11.51 Type 2 diabetes mellitus with diabetic peripheral angiopathy without gangrene; L84 Corns and callosities; I10 Essential (primary) hypertension; I25.10 Atherosclerotic heart disease of native coronary artery without angina pectoris; Z86.73 Personal history of transient ischemic attack (TIA), and cerebral infarction without residual deficits; Z87.891 Personal history of nicotine dependence; Z96.659 Presence of unspecified artificial knee joint

== ENCOUNTER 2019-08-17 12:51 | Outpatient (CLI) | payer MEDICARE ==
[2019-08-17] MEDS ORDERED: LIDOCAINE (4%) 40 MG/ML TOPICAL SOLN 50 ML BOTTLE TP ONE (13:30)
== END 2019-08-17 12:52 | disposition home or self-care (01) ==
LOC: WOUND 12:51
PROVIDERS: ATTEND Surgery
DX: E11.621 Type 2 diabetes mellitus with foot ulcer (principal); L97.412 Non-pressure chronic ulcer of right heel and midfoot with fat layer exposed; L97.423 Non-pressure chronic ulcer of left heel and midfoot with necrosis of muscle; E11.51 Type 2 diabetes mellitus with diabetic peripheral angiopathy without gangrene; L84 Corns and callosities; I10 Essential (primary) hypertension; I25.10 Atherosclerotic heart disease of native coronary artery without angina pectoris; Z86.73 Personal history of transient ischemic attack (TIA), and cerebral infarction without residual deficits; Z87.891 Personal history of nicotine dependence; Z96.659 Presence of unspecified artificial knee joint; Z89.422 Acquired absence of other left toe(s)

== ENCOUNTER 2019-08-18 06:12 | Day surgery (SDC) | payer MEDICARE ==
[2019-08-18] MEDS ORDERED: SODIUM CHLORIDE 0.9% 500 ML 500 ML IV SCH (07:00)
[2019-08-18 07:04] LABS: Hemoglobin 13.1 gm/dl (11.8-15.2); Mean Corpuscular HGB Conc 35 % (32-34); Mean Corpuscular Volume 87 fl (84-94); Platelet Count 173 K/mm3 (140-440); Red Blood Count 4.36 M/mm3 (3.65-5.03); Red Cell Distribution Width 14.4 % (13.2-15.2)
[2019-08-18 08:16] LABS: Calcium 8.6 mg/dL (8.4-10.2)
[2019-08-18 08:21] LABS: INR 0.98 (0.87-1.13)
[2019-08-18 08:22] LABS: Partial Thromboplastin Time 29.5 Sec. (24.2-36.6)
[2019-08-18] MEDS ORDERED: HEPARIN/NS 5000 UNIT/500ML 1,000 ML IR ONE (08:22)
[2019-08-18] MEDS: fentaNYL 100 MCG/2 ML INJ ONE ×6 (08:48→10:37)
[2019-08-18] MEDS: LIDOCAINE (2%) 20 MG/1 ML VIAL 20 ML MDV INFILTRATI ONE ×2 (08:49→09:04)
[2019-08-18] MEDS: MIDAZOLAM 2 MG/2 ML INJ ONE ×4 (08:49→09:45)
[2019-08-18] MEDS: HEPARIN 10,000 UNITS/10 ML VIAL ONE ×2 (09:24→10:05)
[2019-08-18] MEDS ORDERED: MIDAZOLAM 2 MG/2 ML INJ ONE (09:43)
--- NOTE | 2019-08-18 11:02 | Short Stay Summary ---
Short Stay Documentation Date of service: 08/18/19 Narrative H&P: See H&P - History H&P: obtained from office - Allergies and Medications Current Medications: Allergies acetaminophen [From Lortab] Allergy (Verified 12/23/18 17:47) Confusion and Combative codeine Allergy (Verified 12/23/18 17:47) Swelling hydrocodone [From Lortab] Allergy (Verified 12/23/18 17:47) Confusion and Combative lorazepam [From Ativan] Allergy (Verified 12/23/18 17:47) Confusion and Combative pioglitazone [From Actos] Allergy (Verified 12/24/18 13:08) Unknown Home Medications Medication Instructions Recorded Confirmed Last Taken Type Aspirin [Aspirin BABY CHEW TAB] 81 mg PO QHS #40 tab.chew 11/01/18 08/18/19 08/17/19 Rx FLUoxetine [PROzac] 40 mg PO QDAY #30 capsule 11/01/18 08/18/19 08/17/19 Rx Gabapentin 600 mg PO HS #30 capsule 11/01/18 08/18/19 08/17/19 Rx Insulin Glargine,Hum.rec.anlog 40 units SQ QAM #5 insuln.pen 11/01/18 08/18/19 08/17/19 Rx [Toujeo Solostar] Levothyroxine [Synthroid] 100 mcg PO QAM #100 tablet 11/01/18 08/18/19 08/17/19 Rx Memantine 10 mg PO BID #60 tablet 11/01/18 08/18/19 08/17/19 Rx Tamsulosin [Flomax] 0.4 mg PO QHS #30 capsule 11/01/18 08/18/19 08/17/19 Rx tiZANidine [Zanaflex 4mg TAB] 4 mg PO QHS #30 tablet 11/01/18 08/18/19 08/17/19 Rx Ascorbic Acid [Vitamin C] 500 mg PO QDAY 12/23/18 08/18/19 08/17/19 History Cetirizine HCl [ZyrTEC 10mg cap] 10 mg PO DAILY 12/23/18 08/18/19 08/17/19 History Docusate Sodium [Colace] 100 mg PO BID PRN 12/23/18 08/18/19 08/17/19 History Insulin Lispro [Humalog 100 0 units SQ AC 12/23/18 08/18/19 08/17/19 History UNITS/ML Kwikpen] Lipase/Protease/Amylase [Al Oakley 2 each PO TID 12/23/18 08/18/19 08/17/19 History 24,000 Units Capsule] Pantoprazole [Protonix TAB] 20 mg QDAY 12/23/18 08/18/19 08/17/19 History Simvastatin 40 mg PO QHS 12/23/18 08/18/19 08/17/19 History Zinc [Zinc 50mg TAB] 50 mg PO DAILY 12/23/18 08/18/19 08/17/19 History oxyCODONE /ACETAMINOPHEN [Percocet 1 tab PO Q4HR PRN #40 tab 12/24/18 08/18/19 08/17/19 Rx 5/325] ARIPiprazole [Aripiprazole] 5 mg PO QHS 08/18/19 08/18/19 08/17/19 History Active Medications Sodium Chloride (Nacl 0.9% 500 Ml) 500 mls @ 50 mls/hr IV DIRECT BALBINA Last Admin: 08/18/19 08:56 Dose: 100 mls Documented by: - Brief post op/procedure progress note Date of procedure: 08/18/19 Pre-op diagnosis: Peripheral Vascular Disease w/ right lower extremity critical limb Ischemia Post-op diagnosis: same Procedure: 1. Ultrasound-Guided Access Left Common Femoral Artery 2. Diagnostic Aortogram (The Patient Had a Clinical Change) 3. Diagnostic Right Lower Extremity Arteriogram (The Patient Had a Clinical Change) 4. Atherectomy with Angioplasty of Right SFA and Popliteal Artery with [employer] TurboHawk Hawk One LX and 5.0 x 200 Angiosculpt Balloon 5. Angioplasty of Right Posterior Tibial Artery And Medial Plantar Artery with 2.5 - 3.0 x 220 Nanocross Balloon and 4.0 x 200 Angiosculpt Balloon 6. Angioplasty of Right Peroneal Artery with 2.5 - 3.0 x 220 Nanocross Balloon and 4.0 x 200 Angiosculpt Balloon 7. Closure of Left Femoral Arteriotomy with 6 Belarusian Angio-Seal 8. Monitored Moderate Sedation (Total Anesthesia Time: 109 Minutes) 9. Radiologic Supervision with Interpretation Anesthesia: local, other (Monitored Moderate Sedation) Surgeon: ROSARIO DOHERTY Estimated blood loss: minimal Pathology: none Condition: stable - Disposition Condition at discharge: Good Disposition: DC-01 TO HOME OR SELFCARE Short Stay Discharge Plan Activity: other (No strenuous activity for 24 hours.) Wound: remove dressing (24 hours), other (After removing the dressing it is okay to wash the wound with soap and water but do not soak in water for 48 hours.) Follow up with: ROSARIO DOHERTY MD [Staff Physician] - 14 Days
[2019-08-18] MEDS ORDERED: oxyCODONE /ACETAMINOPHEN 5-325MG TAB PO PRN (11:05)
--- NOTE | 2019-08-18 11:10 | Operative Report ---
Operative Report Operative Report: Date of Procedure: 08/18/2019 Pre-operative Diagnosis: Peripheral Vascular Disease with Right Lower Extremity Critical Limb Ischemia Post-operative Diagnosis: Same Procedure(s): 1. Ultrasound-Guided Access Left Common Femoral Artery 2. Diagnostic Aortogram (The Patient Had a Clinical Change) 3. Diagnostic Right Lower Extremity Arteriogram (The Patient Had a Clinical Change) 4. Atherectomy with Angioplasty of Right SFA and Popliteal Artery with [employer] TurboHawk Hawk One LX and 5.0 x 200 Angiosculpt Balloon 5. Angioplasty of Right Posterior Tibial Artery And Medial Plantar Artery with 2.5 - 3.0 x 220 Nanocross Balloon and 4.0 x 200 Angiosculpt Balloon 6. Angioplasty of Right Peroneal Artery with 2.5 - 3.0 x 220 Nanocross Balloon and 4.0 x 200 Angiosculpt Balloon 7. Closure of Left Femoral Arteriotomy with 6 Malawian Angio-Seal 8. Monitored Moderate Sedation 9. Radiologic Supervision with Interpretation Surgeon: Kunal Dow M.D. Head Buyer Tobacco: None Anesthesia: Monitored Moderate Sedation Total Anesthesia Time: 109 Minutes EBL: Minimal Counts: Correct Complications: None Condition: Stable Specimen: None Indication: The patient is an 89-year-old male with a history of peripheral vascular disease who has nonhealing ulcers on his right lower extremity. He has had previous endovascular intervention on his right leg however an ultrasound demonstrates poor perfusion to the right lower extremity that would not promote healing of the wounds. He is in need of a diagnostic angiogram to evaluate his arterial anatomy for possible intervention. He and his were given the risk, benefits, and alternative procedures and consented to the procedure. Angiogram Findings: The diagnostic aortogram revealed that the aorta was heavily calcified but patent without any evidence of flow-limiting stenosis. The right lower extremity arteriogram revealed that the right common iliac was heavily calcified but patent without evidence of flow-limiting stenosis. The right external iliac and hypogastric were patent but heavily calcified without flow-limiting stenosis. There was approximately 30% stenosis in the right common femoral artery. The profunda was patent without significant flow-limiting stenosis. There was approximately 60% stenosis in a heavily calcified lesion at the origin of the SFA and the remainder of the SFA was diffusely diseased with heavily calcified plaque ranging from 50 to 85% stenosis. The popliteal artery was also heavily disease and diffusely calcified both above and below the knee with stenosis ranging from 60 to 85%. The patient had three-vessel runoff and the 3 vessels originated separately and all vessels were heavily diseased and heavily calcified. The anterior tibial artery was patent to the ankle and the dorsalis pedis artery was atretic into the foot. The disease within the anterior tibial artery range from 30 to 50%. The disease within the peroneal artery range from 30 to 70%. The origin of the posterior tibial artery had a 5 cm segment of stenosis of approximately 99% and then the remainder of the artery was diffusely diseased ranging from 40 to 75%. The medial plantar artery was patent but somewhat atretic but did provide flow into the digital vessels. After intervention the origin of the SFA was reduced to approximately 25% and the remainder of the SFA was patent with less than 20% residual stenosis. The popliteal artery was patent with less than 15% residual stenosis the majority artery however there was a short segment with approximately 30% residual stenosis and a heavily calcified portion of the artery just below the knee however this was not flow-limiting. The peroneal artery was patent with less than 20% residual stenosis and the posterior tibial artery was patent with less than 20% residual stenosis and brisk flow of contrast into the medial plantar artery. Description of Procedure: The patient was brought to the [facility] and laid in supine position. After timeout was performed his left groin was prepped and draped in normal sterile fashion. Ultrasound was used to identify the left common femoral artery and confirm patency. Once patency was confirmed the overlying skin and soft tissue was anesthetized with lidocaine. An 11 blade was used to make a small stab incision and then a curved hemostat was used with ultrasound guidance to bluntly dissect down to the anterior surface of the left common femoral artery. A 21- gauge micropuncture needle was used with ultrasound guidance to enter the left common femoral artery and a 0.018 micropuncture wire was advanced to the artery under fluoroscopy. The needle was removed and exchanged for a micropuncture sheath by Seldinger technique. The wire and inner dilator were removed and a 0.035 Bentson wire was advanced into the aorta under fluoroscopy. The micropuncture sheath was removed and exchanged for 5 Malawian sheath by Seldinger technique. An Omni Flush catheter was advanced into the aorta under fluoroscopy and a diagnostic aortogram was performed with the previously described findings. The Bentson wire and Omni Flush catheter were advanced up and over the bifurcation and the right lower extremity arteriogram was performed with the procedure findings. Given the patient's clinical picture and the angiogram find ings the decision was made to treat. I used a Navicross catheter and advanced the Bentson wire into the below-knee popliteal artery and then exchanged the Bentson wire for a 0.035 Amplatz wire and at this point I exchanged the 5 Malawian sheath for a 7 Malawian 45 cm destination sheath and systemically heparinized the patient with 5000 units of heparin IV. I then reinserted the Navicross catheter into the below-knee popliteal artery and inserted a 5 mm Spider wire and deployed this to filter any debris that may shower distally. I then used the HeatSynck One LX to perform atherectomy of the lesions in the common femoral, SFA, and popliteal artery. After performing atherectomy I used the 5.0 x 200 Angiosculpt Balloon to perform angioplasty of the treated vessels with the previously described results. I retrieved the filter wire and then reinserted the Navicross catheter along with a 0.014 Choice PT wire and was able to cannulate the posterior tibial artery and advanced the wire into the medial plantar artery. I then used the 2.5 - 3.0 x 220 Nanocross Balloon followed by the 4.0 x 200 Angiosculpt Balloon in the proximal segment of the artery with the previously described results. I pulled the wire back and then advanced into the peroneal artery and then performed angioplasty in the distal portion of the artery with the 2.5 - 3.0 x 220 Nanocross Balloon followed by the 4.0 x 200 Angiosculpt Balloon in the proximal segment of the artery with the previously described results. I then removed the balloon and wire and advanced the Bentson wire into the artery. I pulled the sheath back into the left external iliac artery and then advanced the wire into the aorta and then used a 6 Malawian Angio- Seal to close my left femoral arteriotomy. A sterile dressing was then applied to the groin and the patient was transported to the recovery area in stable condition.
[2019-08-18 13:01] VITALS: BP 117/50
== END 2019-08-18 13:25 | disposition home or self-care (01) ==
LOC: CATHLABREC 06:12
PROVIDERS: ATTEND Surgery Vascular Surgery
DX: I70.235 Atherosclerosis of native arteries of right leg with ulceration of other part of foot (principal); E11.51 Type 2 diabetes mellitus with diabetic peripheral angiopathy without gangrene; F17.210 Nicotine dependence, cigarettes, uncomplicated; E11.621 Type 2 diabetes mellitus with foot ulcer; L97.523 Non-pressure chronic ulcer of other part of left foot with necrosis of muscle; E03.9 Hypothyroidism, unspecified; E78.5 Hyperlipidemia, unspecified; F03.90 Unspecified dementia, unspecified severity, without behavioral disturbance, psychotic disturbance, mood disturbance, and anxiety; E11.42 Type 2 diabetes mellitus with diabetic polyneuropathy; G62.9 Polyneuropathy, unspecified; I25.10 Atherosclerotic heart disease of native coronary artery without angina pectoris; I10 Essential (primary) hypertension; K21.9 Gastro-esophageal reflux disease without esophagitis; M19.90 Unspecified osteoarthritis, unspecified site; F32.9 Major depressive disorder, single episode, unspecified; Z98.890 Other specified postprocedural states; Z88.5 Allergy status to narcotic agent; Z79.899 Other long term (current) drug therapy; Z79.4 Long term (current) use of insulin; Z79.82 Long term (current) use of aspirin; Z98.41 Cataract extraction status, right eye; Z98.42 Cataract extraction status, left eye; Z90.49 Acquired absence of other specified parts of digestive tract; Z87.442 Personal history of urinary calculi; Z96.653 Presence of artificial knee joint, bilateral; Z88.8 Allergy status to other drugs, medicaments and biological substances; Z86.73 Personal history of transient ischemic attack (TIA), and cerebral infarction without residual deficits
CPT/HCPCS: 36415; 37225; 37228; 37232; 75625; 75710; 76937; 80048; 85027; 85610; 85730; 99156; 99157; C1714; C1725; C1760; C1769; C1884; C1887; J1644; J2250; J3010; J7040; Q9967

== ENCOUNTER 2019-08-25 10:49 | Outpatient (CLI) | payer MEDICARE ==
[2019-08-25] MEDS ORDERED: SILVER NITRATE APPLICATOR 1 EA TP ONE (11:06)
[2019-08-25] MEDS ORDERED: LIDOCAINE (4%) 40 MG/ML TOPICAL SOLN 50 ML BOTTLE TP ONE (11:06)
== END 2019-08-25 10:50 | disposition home or self-care (01) ==
LOC: WOUND 10:49
PROVIDERS: ATTEND Surgery
DX: E11.621 Type 2 diabetes mellitus with foot ulcer (principal); L97.413 Non-pressure chronic ulcer of right heel and midfoot with necrosis of muscle; L97.512 Non-pressure chronic ulcer of other part of right foot with fat layer exposed; L97.423 Non-pressure chronic ulcer of left heel and midfoot with necrosis of muscle; E11.51 Type 2 diabetes mellitus with diabetic peripheral angiopathy without gangrene; I10 Essential (primary) hypertension; I25.10 Atherosclerotic heart disease of native coronary artery without angina pectoris; Z87.891 Personal history of nicotine dependence; Z86.73 Personal history of transient ischemic attack (TIA), and cerebral infarction without residual deficits

== ENCOUNTER 2019-08-27 10:12 | Outpatient (CLI) | payer MEDICARE | END 2019-08-27 10:13 | disposition home or self-care (01) | LOC: WOUND 10:12 | PROVIDERS: ATTEND Internal Medicine | DX: E11.621 Type 2 diabetes mellitus with foot ulcer (principal); L89.623 Pressure ulcer of left heel, stage 3; L97.423 Non-pressure chronic ulcer of left heel and midfoot with necrosis of muscle; L97.512 Non-pressure chronic ulcer of other part of right foot with fat layer exposed; L89.613 Pressure ulcer of right heel, stage 3; L97.411 Non-pressure chronic ulcer of right heel and midfoot limited to breakdown of skin; E11.51 Type 2 diabetes mellitus with diabetic peripheral angiopathy without gangrene; I10 Essential (primary) hypertension; I25.10 Atherosclerotic heart disease of native coronary artery without angina pectoris; Z86.73 Personal history of transient ischemic attack (TIA), and cerebral infarction without residual deficits; Z87.891 Personal history of nicotine dependence | CPT/HCPCS: 82962; G0277; 99183 ==

== ENCOUNTER 2019-09-01 08:51 | Outpatient (CLI) | payer MEDICARE ==
[2019-09-01] MEDS ORDERED: LIDOCAINE (4%) 40 MG/ML TOPICAL SOLN 50 ML BOTTLE TP ONE (08:56)
[2019-09-01] MEDS ORDERED: SILVER NITRATE APPLICATOR 1 EA TP ONE (08:57)
== END 2019-09-01 08:52 | disposition home or self-care (01) ==
LOC: WOUND 08:51
PROVIDERS: ATTEND Surgery
DX: E11.621 Type 2 diabetes mellitus with foot ulcer (principal); L89.623 Pressure ulcer of left heel, stage 3; L97.423 Non-pressure chronic ulcer of left heel and midfoot with necrosis of muscle; L97.512 Non-pressure chronic ulcer of other part of right foot with fat layer exposed; L89.613 Pressure ulcer of right heel, stage 3; L97.411 Non-pressure chronic ulcer of right heel and midfoot limited to breakdown of skin; E11.51 Type 2 diabetes mellitus with diabetic peripheral angiopathy without gangrene; I10 Essential (primary) hypertension; I25.10 Atherosclerotic heart disease of native coronary artery without angina pectoris; Z86.73 Personal history of transient ischemic attack (TIA), and cerebral infarction without residual deficits; Z87.891 Personal history of nicotine dependence
CPT/HCPCS: 11042; 11043; 11046; 82962; G0277; 99183

== ENCOUNTER 2019-09-06 09:31 | Outpatient (CLI) | payer MEDICARE | END 2019-09-06 09:32 | disposition home or self-care (01) | LOC: WOUND 09:31 | PROVIDERS: ATTEND Surgery | DX: E11.621 Type 2 diabetes mellitus with foot ulcer (principal); L89.623 Pressure ulcer of left heel, stage 3; L97.423 Non-pressure chronic ulcer of left heel and midfoot with necrosis of muscle; L97.512 Non-pressure chronic ulcer of other part of right foot with fat layer exposed; L89.613 Pressure ulcer of right heel, stage 3; L97.411 Non-pressure chronic ulcer of right heel and midfoot limited to breakdown of skin; E11.51 Type 2 diabetes mellitus with diabetic peripheral angiopathy without gangrene; I10 Essential (primary) hypertension; I25.10 Atherosclerotic heart disease of native coronary artery without angina pectoris; Z86.73 Personal history of transient ischemic attack (TIA), and cerebral infarction without residual deficits; Z87.891 Personal history of nicotine dependence | CPT/HCPCS: 82962; G0277; 99183 ==

== ENCOUNTER 2019-09-07 10:02 | Outpatient (CLI) | payer MEDICARE | END 2019-09-07 10:03 | disposition home or self-care (01) | LOC: WOUND 10:02 | PROVIDERS: ATTEND Internal Medicine | DX: E11.621 Type 2 diabetes mellitus with foot ulcer (principal); L89.623 Pressure ulcer of left heel, stage 3; L97.423 Non-pressure chronic ulcer of left heel and midfoot with necrosis of muscle; L97.512 Non-pressure chronic ulcer of other part of right foot with fat layer exposed; L89.613 Pressure ulcer of right heel, stage 3; L97.411 Non-pressure chronic ulcer of right heel and midfoot limited to breakdown of skin; E11.51 Type 2 diabetes mellitus with diabetic peripheral angiopathy without gangrene; I10 Essential (primary) hypertension; I25.10 Atherosclerotic heart disease of native coronary artery without angina pectoris; Z86.73 Personal history of transient ischemic attack (TIA), and cerebral infarction without residual deficits; Z87.891 Personal history of nicotine dependence | CPT/HCPCS: 82962; G0277; 99183 ==

== ENCOUNTER 2019-09-08 08:58 | Outpatient (CLI) | payer MEDICARE ==
[2019-09-08] MEDS ORDERED: LIDOCAINE (4%) 40 MG/ML TOPICAL SOLN 50 ML BOTTLE TP ONE (09:01)
[2019-09-08] MEDS ORDERED: SILVER NITRATE APPLICATOR 1 EA TP ONE (10:00)
== END 2019-09-08 08:59 | disposition home or self-care (01) ==
LOC: WOUND 08:58
PROVIDERS: ATTEND Surgery
DX: E11.621 Type 2 diabetes mellitus with foot ulcer (principal); L89.623 Pressure ulcer of left heel, stage 3; L97.423 Non-pressure chronic ulcer of left heel and midfoot with necrosis of muscle; L89.613 Pressure ulcer of right heel, stage 3; L97.411 Non-pressure chronic ulcer of right heel and midfoot limited to breakdown of skin; L97.512 Non-pressure chronic ulcer of other part of right foot with fat layer exposed; E11.51 Type 2 diabetes mellitus with diabetic peripheral angiopathy without gangrene; I10 Essential (primary) hypertension; I25.10 Atherosclerotic heart disease of native coronary artery without angina pectoris; Z86.73 Personal history of transient ischemic attack (TIA), and cerebral infarction without residual deficits; Z87.891 Personal history of nicotine dependence
CPT/HCPCS: 11042; 11043; 11046; 82962; G0277; 99183

== ENCOUNTER 2019-09-10 08:00 | Outpatient (CLI) | payer MEDICARE | END 2019-09-10 10:00 | disposition home or self-care (01) | LOC: WOUND 08:00 | PROVIDERS: ATTEND Surgery | DX: E11.621 Type 2 diabetes mellitus with foot ulcer (principal); L89.623 Pressure ulcer of left heel, stage 3; L97.423 Non-pressure chronic ulcer of left heel and midfoot with necrosis of muscle; L89.613 Pressure ulcer of right heel, stage 3; L97.411 Non-pressure chronic ulcer of right heel and midfoot limited to breakdown of skin; L97.512 Non-pressure chronic ulcer of other part of right foot with fat layer exposed; E11.51 Type 2 diabetes mellitus with diabetic peripheral angiopathy without gangrene; I10 Essential (primary) hypertension; I25.10 Atherosclerotic heart disease of native coronary artery without angina pectoris; Z86.73 Personal history of transient ischemic attack (TIA), and cerebral infarction without residual deficits; Z87.891 Personal history of nicotine dependence | CPT/HCPCS: 82962; G0277; 99183 ==

== ENCOUNTER 2019-09-17 10:00 | Outpatient (CLI) | payer MEDICARE | END 2019-09-17 11:00 | disposition home or self-care (01) | LOC: WOUND 10:00 | PROVIDERS: ATTEND Internal Medicine | DX: E11.621 Type 2 diabetes mellitus with foot ulcer (principal); L89.623 Pressure ulcer of left heel, stage 3; L97.423 Non-pressure chronic ulcer of left heel and midfoot with necrosis of muscle; L89.613 Pressure ulcer of right heel, stage 3; L97.411 Non-pressure chronic ulcer of right heel and midfoot limited to breakdown of skin; L97.512 Non-pressure chronic ulcer of other part of right foot with fat layer exposed; E11.51 Type 2 diabetes mellitus with diabetic peripheral angiopathy without gangrene; I10 Essential (primary) hypertension; I25.10 Atherosclerotic heart disease of native coronary artery without angina pectoris; Z86.73 Personal history of transient ischemic attack (TIA), and cerebral infarction without residual deficits; Z87.891 Personal history of nicotine dependence | CPT/HCPCS: 82962; G0277; 99183 ==

== ENCOUNTER 2019-09-20 09:53 | Outpatient (CLI) | payer MEDICARE | END 2019-09-20 09:54 | disposition home or self-care (01) | LOC: WOUND 09:53 | PROVIDERS: ATTEND Surgery | DX: E11.621 Type 2 diabetes mellitus with foot ulcer (principal); L89.623 Pressure ulcer of left heel, stage 3; L97.423 Non-pressure chronic ulcer of left heel and midfoot with necrosis of muscle; L89.613 Pressure ulcer of right heel, stage 3; L97.411 Non-pressure chronic ulcer of right heel and midfoot limited to breakdown of skin; L97.512 Non-pressure chronic ulcer of other part of right foot with fat layer exposed; E11.51 Type 2 diabetes mellitus with diabetic peripheral angiopathy without gangrene; I10 Essential (primary) hypertension; I25.10 Atherosclerotic heart disease of native coronary artery without angina pectoris; Z86.73 Personal history of transient ischemic attack (TIA), and cerebral infarction without residual deficits; Z87.891 Personal history of nicotine dependence | CPT/HCPCS: 82962; G0277; 99183 ==

== ENCOUNTER 2019-09-21 08:00 | Outpatient (CLI) | payer MEDICARE | END 2019-09-21 10:00 | disposition home or self-care (01) | LOC: WOUND 08:00 | PROVIDERS: ATTEND Internal Medicine | DX: E11.621 Type 2 diabetes mellitus with foot ulcer (principal); L89.623 Pressure ulcer of left heel, stage 3; L97.423 Non-pressure chronic ulcer of left heel and midfoot with necrosis of muscle; L89.613 Pressure ulcer of right heel, stage 3; L97.512 Non-pressure chronic ulcer of other part of right foot with fat layer exposed; E11.51 Type 2 diabetes mellitus with diabetic peripheral angiopathy without gangrene; I10 Essential (primary) hypertension; I25.10 Atherosclerotic heart disease of native coronary artery without angina pectoris; Z86.73 Personal history of transient ischemic attack (TIA), and cerebral infarction without residual deficits; Z87.891 Personal history of nicotine dependence | CPT/HCPCS: 82962; G0277; 99183 ==

== ENCOUNTER 2019-09-22 09:05 | Outpatient (CLI) | payer MEDICARE ==
[2019-09-22] MEDS ORDERED: SILVER NITRATE APPLICATOR 1 EA TP ONE (09:18)
[2019-09-22] MEDS ORDERED: LIDOCAINE (4%) 40 MG/ML TOPICAL SOLN 50 ML BOTTLE TP ONE (09:18)
[2019-09-22] MEDS ORDERED: SODIUM HYPOCHLORITE, DAKIN'S FULL STRENGTH (0.5%) 473 ML TOPICAL SOLN TP ONE (11:00)
== END 2019-09-22 09:06 | disposition home or self-care (01) ==
LOC: WOUND 09:05
PROVIDERS: ATTEND Surgery
DX: E11.621 Type 2 diabetes mellitus with foot ulcer (principal); L89.613 Pressure ulcer of right heel, stage 3; L97.416 Non-pressure chronic ulcer of right heel and midfoot with bone involvement without evidence of necrosis; L97.516 Non-pressure chronic ulcer of other part of right foot with bone involvement without evidence of necrosis; L89.623 Pressure ulcer of left heel, stage 3; L97.423 Non-pressure chronic ulcer of left heel and midfoot with necrosis of muscle; E11.51 Type 2 diabetes mellitus with diabetic peripheral angiopathy without gangrene; I10 Essential (primary) hypertension; I25.10 Atherosclerotic heart disease of native coronary artery without angina pectoris; Z86.73 Personal history of transient ischemic attack (TIA), and cerebral infarction without residual deficits; Z87.891 Personal history of nicotine dependence
CPT/HCPCS: 11042; 11044; 11047; 82962; G0277; 99183

== ENCOUNTER 2019-09-22 13:52 | Outpatient (CLI) | payer MEDICARE ==
[2019-09-22 15:03] LABS: Basophils # (Auto) 0.1 K/mm3 (0.0-0.1); Basophils % (Auto) 1.1 % (0.0-1.8); Eosinophils # (Auto) 0.2 K/mm3 (0.0-0.4); Eosinophils % (Auto) 2.2 % (0.0-4.3); Hematocrit 35.3 % (35.5-45.6); Hemoglobin 11.7 gm/dl (11.8-15.2); Lymphocytes # (Auto) 2.6 K/mm3 (1.2-5.4); Lymphocytes % (Auto) 23.3 % (13.4-35.0); Mean Corpuscular HGB Conc 33 % (32-34); Mean Corpuscular Volume 87 fl (84-94); Monocytes # (Auto) 0.7 K/mm3 (0.0-0.8); Monocytes % (Auto) 6.3 % (0.0-7.3); Platelet Count 229 K/mm3 (140-440); Red Blood Count 4.04 M/mm3 (3.65-5.03); Red Cell Distribution Width 13.4 % (13.2-15.2)
[2019-09-22 15:15] LABS: Albumin 2.7 g/dL (3.9-5); Calcium 8.7 mg/dL (8.4-10.2); Prealbumin 0.056 g/L (0.200-0.400)
== END 2019-09-22 13:53 | disposition home or self-care (01) ==
LOC: LAB 13:52
PROVIDERS: ATTEND Surgery
DX: I10 Essential (primary) hypertension (principal); E11.9 Type 2 diabetes mellitus without complications
CPT/HCPCS: 36415; 80053; 84134; 85025

== ENCOUNTER 2019-09-29 09:00 | Outpatient (CLI) | payer MEDICARE ==
[2019-09-29] MEDS ORDERED: LIDOCAINE (4%) 40 MG/ML TOPICAL SOLN 50 ML BOTTLE TP ONE (09:04)
== END 2019-09-29 09:01 | disposition home or self-care (01) ==
LOC: WOUND 09:00
PROVIDERS: ATTEND Surgery
DX: E11.621 Type 2 diabetes mellitus with foot ulcer (principal); L89.613 Pressure ulcer of right heel, stage 3; L97.415 Non-pressure chronic ulcer of right heel and midfoot with muscle involvement without evidence of necrosis; L97.512 Non-pressure chronic ulcer of other part of right foot with fat layer exposed; L89.623 Pressure ulcer of left heel, stage 3; L97.423 Non-pressure chronic ulcer of left heel and midfoot with necrosis of muscle; E11.51 Type 2 diabetes mellitus with diabetic peripheral angiopathy without gangrene; I10 Essential (primary) hypertension; I25.10 Atherosclerotic heart disease of native coronary artery without angina pectoris; Z86.73 Personal history of transient ischemic attack (TIA), and cerebral infarction without residual deficits; Z87.891 Personal history of nicotine dependence
CPT/HCPCS: 11042; 11043; 11046; 82962; G0277; 99183

== ENCOUNTER 2019-11-10 10:47 | Outpatient (CLI) | payer MEDICARE ==
[2019-11-10] MEDS ORDERED: LIDOCAINE (4%) 40 MG/ML TOPICAL SOLN 50 ML BOTTLE TP ONE (12:00)
== END 2019-11-10 10:48 | disposition home or self-care (01) ==
LOC: WOUND 10:47
PROVIDERS: ATTEND Surgery
DX: T87.89 Other complications of amputation stump (principal); E11.622 Type 2 diabetes mellitus with other skin ulcer; L89.156 Pressure-induced deep tissue damage of sacral region; L98.495 Non-pressure chronic ulcer of skin of other sites with muscle involvement without evidence of necrosis; E11.621 Type 2 diabetes mellitus with foot ulcer; L97.512 Non-pressure chronic ulcer of other part of right foot with fat layer exposed; L97.412 Non-pressure chronic ulcer of right heel and midfoot with fat layer exposed; L97.422 Non-pressure chronic ulcer of left heel and midfoot with fat layer exposed; E11.51 Type 2 diabetes mellitus with diabetic peripheral angiopathy without gangrene; I10 Essential (primary) hypertension; I25.10 Atherosclerotic heart disease of native coronary artery without angina pectoris; Z86.73 Personal history of transient ischemic attack (TIA), and cerebral infarction without residual deficits; Z87.891 Personal history of nicotine dependence